=== PATIENT | female | born 1935 | race Caucasian/White ===

== ENCOUNTER 2018-09-20 22:13 | Observation (INO) | payer OTHER ==
[2018-09-20] MEDS ORDERED: NA CHLORIDE 0.9% 500 ML ONE (22:33)
[2018-09-20 23:23] LABS: Absolute Monocytes 0.6 K/uL (0.1-1.3); Absolute Neutrophil 11.8 K/uL (1.8-8.0); Basophils % 0.9 % (0-1.3); Eosinophils % 0.5 % (0-4.4); Hematocrit 46.1 % (36.0-45.0); Lymphocytes % 7.5 % (15.3-44.8); MCH 28.2 pg (27.0-35.0); MCV 84.9 fL (80-100); MPV 10.4 fL (7.6-11.3); Monocytes % 4.7 % (3.3-12.3); RBC Red Blood Cell Count 5.43 M/uL (3.86-4.86)
[2018-09-20 23:53] LABS: Albumin 3.3 g/dL (3.4-5.0); Bilirubin Direct 0.2 mg/dL (0-0.2); Bilirubin Total 0.9 mg/dL (0.2-1.0); Potassium 3.3 mmol/L (3.5-5.1); Protein, Total 7.5 g/dL (6.4-8.2)
[2018-09-21 01:55] LABS: Blood Morphology Comment NOT SEEN (NOT SEEN); Platelet Estimate ADEQ
--- NOTE | 2018-09-21 02:28 | ER ---
Nurse's Notes [facility] Name: Debra Sarkar Age: 82 yrs Sex: Female : 1935 Arrival Date: 09/20/2018 Time: 22:19 Bed 19 Private MD: Diagnosis: Diarrhea, unspecified;Weakness;Hypokalemia Presentation: 09/20 22:23 Presenting complaint: EMS states: Pt was complaining of Nausea and vomiting and having jb4 diarrhea. She had one episode of diarrhea on scene. She complained of hip pain that was a 6/10 when ambulating to the restroom but has no pain at rest. Transition of care: patient was not received from another setting of care. Onset of symptoms was September 20, 2018. Risk Assessment: Do you want to hurt yourself or someone else? Patient reports no desire to harm self or others. Initial Sepsis Screen: Does the patient meet any 2 criteria? HR > 90 bpm. Yes Does the patient have a suspected source of infection? No. Patient's initial sepsis screen is negative. Care prior to arrival: Medication(s) given: Normal saline infusion, 500 mL, zofran 4 mg, Glucose check: 158. 22:23 Method Of Arrival: EMS: [facility] jb4 22:23 Acuity: LEX 3 jb4 Historical: - Allergies: 22:31 Levaquin; jb4 22:31 Lisinopril; jb4 22:31 metformin; jb4 - Home Meds: 22:31 amlodipine 10 mg tab 1 tab once daily [Active]; clonidine HCl 0.3 mg Oral tab 1 tab jb4 every 8 hours [Active]; furosemide 40 mg Oral tab 1 tab once daily [Active]; hydralazine 50 mg Oral tab 1 tab 3 times daily [Active]; isosorbide mononitrate 30 mg Oral Tb24 1 tab once daily [Active]; Lantus Sub-Q 45 units daily [Active]; levothyroxine 100 mcg tab 1 tab once daily [Active]; Novolog sliding scale Sub-Q [Active]; propafenone 225 mg Oral Tb24 1 cap 8 hrs [Active]; spironolactone 25 mg Oral tab 1 tab once daily [Active]; Xarelto 20 mg Oral tab 1 tab once daily [Active]; - PMHx: 22:31 Atrial Fib; Diabetes - IDDM; Hypertension; jb4 - PSHx: 22:31 Cholecystectomy; Hysterectomy; partial thyroidectomy; jb4 - Immunization history:: Adult Immunizations up to date. - Social history:: Smoking status: Patient/guardian denies using tobacco. - Ebola Screening: : No symptoms or risks identified at this time. - Family history:: not pertinent. - Hospitalizations: : No recent hospitalization is reported. Screenin:44 Abuse screen: Denies threats or abuse. Denies injuries from another. Nutritional lp1 screening: No deficits noted. Tuberculosis screening: No symptoms or risk factors identified. Fall Risk Total Kim Fall Scale indicates High Risk Score (45 or more points). Fall prevention measures have been instituted. Side Rails Up X 2 As available patient and family educated on Fall Prevention Program and Strategies. Assessment: 22:43 General: Appears uncomfortable, Behavior is appropriate for age. Pain: Complains of lp1 pain in abdomen Pain currently is 4 out of 10 on a pain scale. Quality of pain is described as aching. Neuro: Level of Consciousness is awake, alert, obeys commands, Oriented to person, place, situation. Cardiovascular: Patient's skin is warm and dry. Rhythm is sinus rhythm with 1st degree heart block. Respiratory: Respiratory effort is even, unlabored, Breath sounds are clear bilaterally. GI: Abdomen is round Bowel sounds present X 4 quads. Abdomen is tender to palpation X 4 quads. Reports diarrhea. : No signs and/or symptoms were reported regarding the genitourinary system. EENT: No signs and/or symptoms were reported regarding the EENT system. Derm: Skin is fragile, is thin, Skin is dry, Skin is normal. Musculoskeletal: Circulation, motion, and sensation intact. 23:45 Reassessment: Patient appears in no apparent distress at this time. Patient and/or lp1 family updated on plan of care and expected duration. Pain level reassessed. Patient resting, eyes closed, respirations unlabored. 09/21 00:50 Reassessment: Notified by CT of IV to R AC not functional for IV contrast; nurse to CT lp1 at this time. 02:00 Reassessment: Patient appears in no apparent distress at this time. Patient and/or lp1 family updated on plan of care and expected duration. Pain level reassessed. Patient resting, eyes closed, respirations unlabored. 03:00 Reassessment: Patient appears in no apparent distress at this time. Patient and/or jb4 family updated on plan of care and expected duration. Pain level reassessed. Patient is alert, oriented x 3, equal unlabored respirations, skin warm/dry/pink. 04:00 Reassessment: Patient appears in no apparent distress at this time. Patient and/or jb4 family updated on plan of care and expected duration. Pain level reassessed. Patient is alert, oriented x 3, equal unlabored respirations, skin warm/dry/pink. Changed and cleaned pt. Vital Signs: 09/20 22:31 BP 184 / 69; Pulse 96; Resp 18; Temp 98.3(O); Pulse Ox 96% on R/A; Weight 93.89 kg (R); jb4 Height 5 ft. 2 in. (157.48 cm) (R); Pain 0/10; 23:15 BP 192 / 74; Pulse 98; Resp 17; Pulse Ox 96% on R/A; lp1 09/21 00:00 BP 182 / 72; Pulse 93; Resp 17; Pulse Ox 95% on R/A; lp1 02:00 BP 182 / 72; Pulse 99; Resp 18; Pulse Ox 96% on R/A; lp1 03:00 BP 193 / 72; Pulse 98; Resp 20; Pulse Ox 95% on R/A; jb4 04:00 BP 185 / 68; Pulse 101; Resp 20; Temp 98.3(O); Pulse Ox 96% on R/A; jb4 09/20 22:31 Body Mass Index 37.86 (93.89 kg, 157.48 cm) 4 ED Course: 09/20 22:19 Patient arrived in ED. rn 22:21 Rahat Ratliff MD is Attending Physician. rn 22:22 Sherrill Biggs, MENG is Primary Nurse. lp1 22:26 Triage completed. jb4 22:31 Arm band placed on right wrist. jb4 22:42 Maintain EMS IV. Dressing intact. Good blood return noted. Site clean \T\ dry. Gauge \T\ lp 1 site: 22g to R AC. 22:45 Patient has correct armband on for positive identification. Call light in reach. Side lp1 rails up X2. electrician chief on. Pulse ox on. NIBP on. 12/03 00:[address] via stretcher. kw1 00:55 Inserted saline lock: 22 gauge in left antecubital area, using aseptic technique. lp1 01:10 Patient moved back from CT. kw1 02:17 No provider procedures requiring assistance completed. lp1 02:26 Ugo Mercado MD is Hospitalizing Provider. rn 02:50 Patient admitted, IV remains in place. lp1 03:00 Report given to MENG Scruggs. lp1 Administered Medications: 09/20 22:43 Drug: NS 0.9% 500 ml Route: IV; Rate: bolus; Site: right antecubital; lp1 23:30 Follow up: IV Status: Completed infusion; IV Intake: 500ml lp1 09/21 02:56 Drug: NS 0.9% 1000 ml Route: IV; Rate: 125 ml/hr; Site: left antecubital; lp1 04:20 Follow up: Response: No adverse reaction; IV Status: Infusion continued upon admission jb4 02:56 Drug: Potassium Chloride 40 mEq Route: PO; lp1 03:40 Follow up: Response: No adverse reaction jb4 Intake: 09/20 23:30 IV: 500ml; Total: 500ml. lp1 Outcome: 09/21 02:27 Decision to Hospitalize by Provider. rn 02:50 Condition: stable lp1 02:50 Instructed on the need for admit. 04:34 Admitted to Tele accompanied by tech, via stretcher, room 421, with chart, Report jb4 called to MENG Ashby 04:35 Patient left the ED. jb4 Signatures: Rahat Ratliff MD MD rn Pena, Laura, RN RN lp1 Forest Luong RN RN jb4 [facility]
--- NOTE | 2018-09-21 02:28 | EDPHYS ---
Physician Documentation [facility] Name: Debra Sarkar Age: 82 yrs Sex: Female : 1935 Arrival Date: 09/20/2018 Time: 22:19 Bed 19 Private MD: ED Physician Rahat Ratliff HPI: 09/20 23:58 This 82 yrs old Female presents to ER via EMS with complaints of rn nausea/vomiting/diarrhea. 23:58 The patient presents to the emergency department with nausea, vomiting, diarrhea. rn Onset: The symptoms/episode began/occurred 2 day(s) ago. Possible causes: unknown. The symptoms are aggravated by nothing. The symptoms are alleviated by nothing. Severity of symptoms: At their worst the symptoms were moderate in the emergency department the symptoms are unchanged. The patient has not experienced similar symptoms in the past. Reports a couple of days of nausea/vomiting/diarrhea, + generalized weakness, no fever, + chills, no blood in emesis or diarrhea. + intermittent cramping of abdomen. . Historical: - Allergies: 22:31 Levaquin; jb4 22:31 Lisinopril; jb4 22:31 metformin; jb4 - Home Meds: 22:31 amlodipine 10 mg tab 1 tab once daily [Active]; clonidine HCl 0.3 mg Oral tab 1 tab jb4 every 8 hours [Active]; furosemide 40 mg Oral tab 1 tab once daily [Active]; hydralazine 50 mg Oral tab 1 tab 3 times daily [Active]; isosorbide mononitrate 30 mg Oral Tb24 1 tab once daily [Active]; Lantus Sub-Q 45 units daily [Active]; levothyroxine 100 mcg tab 1 tab once daily [Active]; Novolog sliding scale Sub-Q [Active]; propafenone 225 mg Oral Tb24 1 cap 8 hrs [Active]; spironolactone 25 mg Oral tab 1 tab once daily [Active]; Xarelto 20 mg Oral tab 1 tab once daily [Active]; - PMHx: 22:31 Atrial Fib; Diabetes - IDDM; Hypertension; jb4 - PSHx: 22:31 Cholecystectomy; Hysterectomy; partial thyroidectomy; jb4 - Immunization history:: Adult Immunizations up to date. - Social history:: Smoking status: Patient/guardian denies using tobacco. - Ebola Screening: : No symptoms or risks identified at this time. - Family history:: not pertinent. - Hospitalizations: : No recent hospitalization is reported. ROS: 23:58 Constitutional: + chills Eyes: Negative for injury, pain, redness, and discharge, rn Neck: Negative for injury, pain, and swelling, Cardiovascular: Negative for chest pain, palpitations, and edema, Respiratory: Negative for shortness of breath, cough, wheezing, and pleuritic chest pain, Abdomen/GI: + nausea/vomiting/diarrhea, + intermittent abd pain Back: Negative for injury and pain, MS/Extremity: Negative for injury and deformity, Skin: Negative for injury, rash, and discoloration, Neuro: + generalized weakness Exam: 23:58 Constitutional: This is a well developed, well nourished patient who is awake, alert, rn and in no acute distress. Head/Face: Normocephalic, atraumatic. ENT: dry MM Cardiovascular: Regular rate and rhythm with a normal S1 and S2. No gallops, murmurs, or rubs. Normal PMI, no JVD. No pulse deficits. Respiratory: Lungs have equal breath sounds bilaterally, clear to auscultation and percussion. No rales, rhonchi or wheezes noted. No increased work of breathing, no retractions or nasal flaring. Abdomen/GI: soft, non-tender, non-distended Skin: Warm, dry, no evidence of cellulitis. MS/ Extremity: Pulses equal, no cyanosis. Neurovascular intact. Full, normal range of motion. Equal circumference. Neuro: Awake and alert, GCS 15, oriented to person, place, time, and situation. Cranial nerves II-XII grossly intact. Motor strength 5/5 in all extremities. Sensory grossly intact. Vital Signs: 22:31 BP 184 / 69; Pulse 96; Resp 18; Temp 98.3(O); Pulse Ox 96% on R/A; Weight 93.89 kg (R); jb4 Height 5 ft. 2 in. (157.48 cm) (R); Pain 0/10; 23:15 BP 192 / 74; Pulse 98; Resp 17; Pulse Ox 96% on R/A; lp1 1203 00:00 BP 182 / 72; Pulse 93; Resp 17; Pulse Ox 95% on R/A; lp1 02:00 BP 182 / 72; Pulse 99; Resp 18; Pulse Ox 96% on R/A; lp1 03:00 BP 193 / 72; Pulse 98; Resp 20; Pulse Ox 95% on R/A; jb4 04:00 BP 185 / 68; Pulse 101; Resp 20; Temp 98.3(O); Pulse Ox 96% on R/A; jb4 09/20 22:31 Body Mass Index 37.86 (93.89 kg, 157.48 cm) jb4 MDM: 09/20 22:19 Patient medically screened. rn 09/21 02:26 Differential diagnosis: Nonspecific abd pain, diverticulitis, viral gastroenteritis, rn gastroenteritis. Data reviewed: vital signs, nurses notes, lab test result(s), radiologic studies, CT scan, and as a result, I will admit patient. Counseling: I had a detailed discussion with the patient and/or guardian regarding: the historical points, exam findings, and any diagnostic results supporting the discharge/admit diagnosis, lab results, radiology results, the need for further work-up and treatment in the hospital. Admission orders: after a detailed discussion of the patient's condition and case, the admit orders are written by me. 09/20 22:20 Order name: Basic Metabolic Panel rn 09/20 22:20 Order name: CBC with Diff rn 09/20 22:20 Order name: Hepatic Function rn 09/20 22:20 Order name: Lipase rn 09/20 23:39 Order name: CBC with Automated Diff; Complete Time: 02:00 EDMS 09/20 23:53 Order name: Basic Metabolic Panel; Complete Time: 02:00 EDMS 09/20 22:20 Order name: CT Abd/Pelvis - W/Contrast rn 09/20 22:20 Order name: EKG; Complete Time: 22:22 rn 09/20 23:53 Order name: Liver (Hepatic) Function; Complete Time: 02:00 EDMS 09/20 23:53 Order name: Lipase; Complete Time: 02:00 EDMS 09/21 01:56 Order name: Manual Differential; Complete Time: 02:00 EDMS 09/20 22:20 Order name: IV Saline Lock; Complete Time: 22:49 rn 09/20 22:20 Order name: Labs collected and sent; Complete Time: 22:49 rn 09/20 22:20 Order name: EKG - Nurse/Tech; Complete Time: 22:49 rn Administered Medications: 09/20 22:43 Drug: NS 0.9% 500 ml Route: IV; Rate: bolus; Site: right antecubital; lp1 23:30 Follow up: IV Status: Completed infusion; IV Intake: 500ml lp1 12 02:56 Drug: NS 0.9% 1000 ml Route: IV; Rate: 125 ml/hr; Site: left antecubital; lp1 04:20 Follow up: Response: No adverse reaction; IV Status: Infusion continued upon admission jb4 02:56 Drug: Potassium Chloride 40 mEq Route: PO; lp1 03:40 Follow up: Response: No adverse reaction jb4 Disposition: 09/21/18 02:27 Hospitalization ordered by Ugo Mercado for Observation. Preliminary diagnosis are Diarrhea, unspecified, Weakness, Hypokalemia. - Bed requested for Telemetry/MedSurg (observation). - Status is Observation. jb4 - Condition is Stable. - Problem is new. - Symptoms have improved. UTI on Admission? No Signatures: Dispatcher [employer] EDMS Lorraine Moraes RN RN Rahat Armenta MD MD rn Pena, Laura, RN RN lp1 Forest Luong RN RN jb4 Corrections: (The following items were deleted from the chart) 04:03 02:27 Hospitalization Ordered by A Rogelio NAVARRETE for Observation. Preliminary diagnosis is kl Diarrhea, unspecified; Weakness; Hypokalemia. Bed requested for Telemetry/MedSurg (observation). Status is Observation. Condition is Stable. Problem is new. Symptoms have improved. UTI on Admission? No. rn 04:35 04:03 09/21/2018 02:27 Hospitalization Ordered by A Rogelio NAVARRETE for Observation. jb4 Preliminary diagnosis is Diarrhea, unspecified; Weakness; Hypokalemia. Bed requested for Telemetry/MedSurg (observation). Status is Observation. Condition is Stable. Problem is new. Symptoms have improved. UTI on Admission? No. kl
[2018-09-21] MEDS ORDERED: NA CHLORIDE 0.9% 1,000 ML ONE (02:56)
[2018-09-21] MEDS ORDERED: POTASSIUM CL SA 10 MEQ TAB PO ONE (02:58)
[2018-09-21] MEDS ORDERED: ONDANSETRON 4 MG/2 ML VIAL IV PRN (05:00)
[2018-09-21] MEDS: NA CHLORIDE 0.9% 1,000 ML IV SCH ×3 (05:00→15:00)
[2018-09-21] MEDS ORDERED: ACETAMINOPHEN 500 MG TAB PO PRN (05:00)
[2018-09-21 05:31] VITALS: BMI 37.8
[2018-09-21 06:41] LABS: Absolute Monocytes 0.5 K/uL (0.1-1.3); Absolute Neutrophil 11.9 K/uL (1.8-8.0); Basophils % 0.7 % (0-1.3); Eosinophils % 0.2 % (0-4.4); Hematocrit 44.4 % (36.0-45.0); Lymphocytes % 7.1 % (15.3-44.8); MCH 27.8 pg (27.0-35.0); MCV 83.9 fL (80-100); MPV 10.5 fL (7.6-11.3); RBC Red Blood Cell Count 5.29 M/uL (3.86-4.86)
--- NOTE | 2018-09-21 07:39 | EKG ---
Test Date: 2018-09-20 Test Time: 22:35:10 Hand Alterations Tailor: YAMIL MEASUREMENT RESULTS: Intervals: Rate: 91 NM: 226 QRSD: 138 QT: 402 QTc: 494 [place]: P: 85 NM: 226 QRS: -48 T: 95 INTERPRETIVE STATEMENTS: Sinus rhythm with 1st degree AV block Left axis deviation Nonspecific intraventricular block Cannot rule out Septal infarct, age undetermined T wave abnormality, consider lateral ischemia Abnormal ECG Compared to ECG 10/14/2017 07:58:17 T-wave abnormality now present Possible ischemia now present Myocardial infarct finding still present Electronically Signed On 09-21-18 07:38:24 SALES REPRESENTATIVE DOOR TO DOOR by Walter Osei
--- NOTE | 2018-09-21 08:46 | RAD REPORT ---
EXAM DESCRIPTION: CT - Abdomen Pelvis W Contrast - 09/21/2018 2:14 am CLINICAL HISTORY: Abdominal pain. Vomiting and diarrhea COMPARISON: None. TECHNIQUE: Computed axial tomography of the abdomen and pelvis was obtained. 100 cc Isovue-300 is ad ministered intravenously. Oral contrast was given. All CT scans are performed using dose optimization technique as appropriate and may include automated exposure control or mA/KV adjustment according to patient size. FINDINGS: The gallbladder has been removed The liver, spleen, pancreas, adrenals and kidneys demonstrate no significant abnormality. Small renal cysts. Atherosclerosis involves the arteries. Tiny umbilical hernia. Uterus is been removed. The appendix is normal caliber. There is no evidence of diverticulitis
[2018-09-21] MEDS: CEFTRIAXONE/SWI 1gm 1 GM/10 ML SYR IV SCH ×2 (09:40→21:21)
[2018-09-21] MEDS: METRONIDAZOLE 500mg IVPB 500 MG/100 ML BAG IV SCH ×2 (09:40→17:09)
[2018-09-21] MEDS: PROPAFENONE HCL 150 MG TAB PO SCH ×2 (09:40→17:08)
[2018-09-21] MEDS: CLONIDINE HCL 0.3 MG TAB PO SCH ×2 (09:41→17:09)
[2018-09-21] MEDS: ISOSORBIDE MONO SR 30 MG TAB PO SCH (09:41)
[2018-09-21] MEDS: HYDRALAZINE HCL 25 MG TABLET PO SCH ×3 (09:41→21:21)
[2018-09-21] MEDS: LEVOTHYROXINE SOD 0.112 MG TAB PO SCH (09:41)
[2018-09-21] MEDS: AMLODIPINE 10 MG TAB PO SCH (09:44)
[2018-09-21 11:25] LABS: Urine Appearance CLOUDY; Urine Bilirubin NEGATIVE (NEG); Urine Blood TRACE (NEG); Urine Color YELLOW; Urine Glucose NEGATIVE (NEG); Urine Protein TRACE (NEG); Urine Specific Gravity >=1.030 (1.005-1.030); Urine Urobilinogen 0.2 mg/dL (0.2-1.0); Urine pH 5.5 (5.0-7.0)
[2018-09-21 11:27] LABS: Urine Microscopic Reflex ORDER UMIC
[2018-09-21 11:39] LABS: Urine Bacteria 20-50 /HPF (<20); Urine Culture Reflex Order NOT NEEDED; Urine RBC <5 /HPF (NONE SEEN)
--- NOTE | 2018-09-21 15:11 | EKG ---
Test Date: 2018-09-21 Test Time: 12:09:50 Automotive Internet Sales Manager: PAYTON MEASUREMENT RESULTS: Intervals: Rate: 91 AK: 198 QRSD: 100 QT: 384 QTc: 472 [place]: P: 86 AK: 198 QRS: -29 T: 112 INTERPRETIVE STATEMENTS: Normal sinus rhythm Anteroseptal infarct, age undetermined ST & T wave abnormality, consider lateral ischemia Abnormal ECG Compared to ECG 09/20/2018 22:35:10 First degree AV block no longer present Left-axis deviation no longer present Myocardial infarct finding still present Electronically Signed On 09-21-18 15:10:52 [employer] FIGHTER PILOT by Walter Osei
[2018-09-21] MEDS ORDERED: RIVAROXABAN 20 MG TABLET PO SCH (21:00)
[2018-09-21 22:05] VITALS: O2SAT 96
[2018-09-22] MEDS: CLONIDINE HCL 0.3 MG TAB PO SCH ×3 (00:55→17:00)
[2018-09-22] MEDS: PROPAFENONE HCL 150 MG TAB PO SCH ×3 (00:55→17:00)
[2018-09-22] MEDS: METRONIDAZOLE 500mg IVPB 500 MG/100 ML BAG IV SCH ×3 (00:56→17:00)
[2018-09-22] MEDS: NA CHLORIDE 0.9% 1,000 ML IV SCH ×3 (01:00→11:00)
[2018-09-22] MEDS: LEVOTHYROXINE SOD 0.112 MG TAB PO SCH (06:04)
--- NOTE | 2018-09-22 06:14 | HP ---
Date of Admission: 09/21/2018 Chief Complaint: Abdominal pain, diarrhea, nausea. History Of Present Illness: This 82-year-old female patient came into emergency room with complaints of generalized abdominal pain, nausea, diarrhea, and some chills. Denies any blood in stool. After she came into the emergency room, she was admitted to the hospital under my service. When I saw her this morning, she had no other new complaints except as mentioned above. Medications: List reviewed. Review of Systems: GI: As mentioned above. All other systems reviewed and negative. Allergies: TO LISINOPRIL, LEVAQUIN, METFORMIN. Social History: Negative for smoking and alcohol use. Family History: Significant for coronary artery disease and diabetes. Past Surgical History: Cholecystectomy, hysterectomy, partial thyroidectomy in 2008. Past Medical History: Significant for hypertension, hyperlipidemia, type 2 diabetes mellitus, ulcera tive colitis, leg edema, paroxysmal atrial fibrillation, hypothyroidism, osteoarthritis at multiple s ites, osteopenia. Physical Examination: Vital Signs: When I first saw her this morning, temperature 99.4, pulse 86, respiratory rate 20, blo od pressure 182/70. General: Awake, alert, oriented, not in distress. HEENT: Head atraumatic, normocephalic. Conjunctivae nonerythematous. Sclerae white. Mouth, no thr ush or edema noted. Ears/Nose, no mass, lesion, discharge noted. Neck: Supple. No JVD, lymph nodes, bruit, thyromegaly noted. Lungs: Bilateral good equal air entry. Clear to auscultation. No rhonchi. No rales. Heart: Normal heart sounds, no murmur or gallop. Abdomen: Vague lower abdominal tenderness. No rebound tenderness. Bowel sounds normoactive. No di stention. No hepatosplenomegaly. No bruit. Extremities: No leg edema. No calf tenderness. Skin: No rash, ulcer, cellulitis. Lymphatics: No lymph node enlargement in neck, supraclavicular, infraclavicular region. Neuro: No focal neurological deficit. Chest: Unremarkable. External Genitalia: Deferred. Rectal: Deferred. Laboratory Data: White count yesterday 13.7, hemoglobin 15.3, platelets 291. This morning, white co unt 13.5, hemoglobin 14.7, platelets 315. Yesterday, sodium 139, potassium 3.3, chloride 106, bicarb 20, BUN 14, creatinine 1.1, glucose 180. Liver function tests unremarkable. Lipase 82. This morni ng, sodium 140, potassium 4, chloride 108, bicarb 18, BUN 13, creatinine 1, glucose 192. Urinalysis; nitrite negative, esterase 2+, wbc 10-20, bacteria 20-50. CAT scan of the abdomen and pelvis done i n the emergency room shows no evidence of diverticulitis. Tiny umbilical hernia. Appendix normal ca liber. Liver, spleen, pancreas, adrenal, kidneys demonstrate no significant abnormalities. Presence of small renal cyst. Stool for C. diff was done today that was negative. Stool culture pending. Impression: 1.Acute gastroenteritis. 2.Urinary tract infection. 3.Hypokalemia. 4.Hypertension. 5.Hyperlipidemia. 6.Type 2 diabetes mellitus. 7.Osteoarthritis, multiple sites. 8.Paroxysmal atrial fibrillation. Plan: Admit patient to hospital for further evaluation and management of this problem. Patient is a ppropriate for inpatient and is expected to spend 2 midnights in the hospital. We will go ahead and continue home medications per order. Give IV fluid, IV antibiotics, and follow up on stool culture results. I will see her tomorrow for followup. Details and plan of treatment di scussed with the patient. BOLIVAR/FAUSTINA Voice ID: [id number]
[2018-09-22 07:26] LABS: Potassium 4.1 mmol/L (3.5-5.1)
[2018-09-22 07:28] LABS: Absolute Lymphocytes (CBC) 1.5 K/uL (0.7-4.9); Absolute Monocytes 0.7 K/uL (0.1-1.3); Absolute Neutrophil 7.2 K/uL (1.8-8.0); Basophils % 0.2 % (0-1.3); Eosinophils % 1.8 % (0-4.4); Hematocrit 36.8 % (36.0-45.0); Lymphocytes % 15.8 % (15.3-44.8); MCV 83.9 fL (80-100); MPV 9.9 fL (7.6-11.3); Monocytes % 7.6 % (3.3-12.3); RBC Red Blood Cell Count 4.39 M/uL (3.86-4.86)
[2018-09-22] MEDS: CEFTRIAXONE/SWI 1gm 1 GM/10 ML SYR IV SCH (09:00)
[2018-09-22] MEDS: HYDRALAZINE HCL 25 MG TABLET PO SCH ×2 (09:40→13:32)
[2018-09-22] MEDS: ISOSORBIDE MONO SR 30 MG TAB PO SCH (09:40)
[2018-09-22] MEDS: AMLODIPINE 10 MG TAB PO SCH (09:40)
[2018-09-22 12:41] VITALS: BP 132/62; TEMP 98.6
--- NOTE | 2018-09-23 05:40 | DS ---
Date of Discharge: 09/22/2018 Disposition: Discharged to go home. Physical Examination: HEENT: Unremarkable. Lungs: Clear to auscultation. Heart: Sounds normal. Abdomen: Soft. Bowel sounds normal. No guarding, rigidity, tenderness, or distention. Extremities: No leg edema. Hospital Course: An 82-year-old female patient was admitted to hospital with abdominal pain, diarrhea, nausea. Please see dictated H and P for more information. After the patient presented to emergency room, she was evaluated, admitted to the hospital with acute gastroenteritis. She was started on empiric antibiotic, ceftriaxone and metronidazole. IV fluid was given. Overall , her condition improved. She did not have any more diarrhea after I saw her yesterday morning. This morning, she was feeling fine, tolerating diet very well. She felt like she was back to her normal self. After I saw her this morning, decision was made to discharge her to go home and she had 1 episode of diarrhea after I saw her, so she did not feel comfortable going home right away this morning, and it was advised for the patient to stay in the hospital until later today, and in the evening time patient was discharged to go home in stable condition with above-mentioned medication and instructions. The patient was advised to follow up with her bloom conveyor operator, Dr. Barajas some time this month. Her white count was slightly elevated when she came in and that has come down to normal range on the last blood work which was from this morning. CAT scan of abdomen done in the emergency room was unremarkable for any acute findings. Final Diagnosis: 1. Acute gastroenteritis. 2. Urinary tract infection. 3. Hypokalemia. 4. Hypertension. 5. Hyperlipidemia. 6. Type 2 diabetes mellitus. 7. Osteoarthritis, multiple sites. 8. Paroxysmal atrial fibrillation. BOLIVAR/MODL Voice ID: [id number] Report ID: [id number] RANDA
== END 2018-09-22 18:06 | disposition home or self-care (01) ==
LOC: ER 22:13 → ERHOLD 09-21 02:29 → INTOOBSV 09-21 02:29 → OBSVTOIN 09-21 02:29 → 4TH 09-21 04:26
PROVIDERS: ADMIT Internal Medicine; ATTEND Internal Medicine
DX: K52.9 Noninfective gastroenteritis and colitis, unspecified (principal); N39.0 Urinary tract infection, site not specified; E87.6 Hypokalemia; I10 Essential (primary) hypertension; E78.5 Hyperlipidemia, unspecified; E11.9 Type 2 diabetes mellitus without complications; M19.90 Unspecified osteoarthritis, unspecified site; I48.0 Paroxysmal atrial fibrillation; E03.9 Hypothyroidism, unspecified
CPT/HCPCS: 36415 ×2; 74177; 80048 ×3; 80076; 83690; 85025 ×3; 87177; 87209; 87493; 93005 ×2; 96360; 96361; 99285; G0378 ×2; J0696 ×2; J2405; J7030 ×3; Q9967; 81003; 81015

== ENCOUNTER 2019-06-18 04:43 | Emergency (ER) | payer OTHER ==
--- NOTE | 2019-06-18 06:02 | ER ---
Nurse's Notes [facility] Name: Debra Sarkar Age: 83 yrs Sex: Female : 1935 Arrival Date: 06/18/2019 Time: 04:46 Bed 19 Private MD: Diagnosis: Fracture of lateral end of clavicle Presentation: 06/18 04:35 Presenting complaint: EMS states: Pt was on the ground for approximately 20 minutes. jb4 Denies LOC, hit her head on the carpet, complaining of left shoulder pain. Landed on her left shoulder. 04:35 Care prior to arrival: None. Mechanism of Injury: Fall from standing position. Trauma jb4 event details: Injury occurred in the [facility]. 04:35 Method Of Arrival: EMS: [facility] jb4 04:35 Acuity: LEX 3 jb4 04:35 Transition of care: patient was not received from another setting of care. Onset of jb4 symptoms was June 18, 2019. Risk Assessment: Do you want to hurt yourself or someone else? Patient reports no desire to harm self or others. Initial Sepsis Screen: Does the patient meet any 2 criteria? No. Patient's initial sepsis screen is negative. Does the patient have a suspected source of infection? No. Patient's initial sepsis screen is negative. Trauma Activation: Alert Physician: ED Physician; Name: JASON; Notified At: 04:36; Arrived At: 04:36 Physician: General Surgeon; Name: ; Notified At: 04:36; Arrived At: Physician: Radiology; Name: JENIFER BURGESS; Notified At: 04:36; Arrived At: Physician: Respiratory; Name: ; Notified At: 04:36; Arrived At: Physician: Lab; Name: ; Notified At: 04:36; Arrived At: Historical: - Allergies: 04:35 Levaquin; jb4 04:35 Lisinopril; jb4 04:35 metformin; jb4 - Home Meds: 04:35 amlodipine 10 mg tab 1 tab once daily [Active]; clonidine HCl 0.3 mg Oral tab 1 tab jb4 every 8 hours [Active]; furosemide 40 mg Oral tab 1 tab once daily [Active]; hydralazine 50 mg Oral tab 1 tab 3 times daily [Active]; isosorbide mononitrate 30 mg Oral Tb24 1 tab once daily [Active]; Lantus Sub-Q 45 units daily [Active]; levothyroxine 100 mcg tab 1 tab once daily [Active]; Novolog Sliding scale Sub-Q [Active]; propafenone 225 mg Oral Tb24 1 cap 8 hrs [Active]; spironolactone 25 mg Oral tab 1 tab once daily [Active]; Xarelto 20 mg Oral tab 1 tab once daily [Active]; Miralax Oral [Active]; - PMHx: 04:35 Atrial Fib; Diabetes - IDDM; Hypertension; lymphedema; jb4 - PSHx: 04:35 Cholecystectomy; Hysterectomy; partial thyroidectomy; jb4 - Immunization history: Last tetanus immunization: unknown. - Social history:: Smoking status: Patient/guardian denies using tobacco. - Ebola Screening: : No symptoms or risks identified at this time. Screenin:35 Abuse screen: Denies threats or abuse. Nutritional screening: No deficits noted. jb4 Tuberculosis screening: No symptoms or risk factors identified. Fall risk At risk due to age, prior history of falls, Intervention for positive screen: side rails up. 04:35 Fall Risk Fall in past 12 months (25 points). Total Kim Fall Scale indicates Low Risk jb4 Score (25-44 pts). Fall prevention measures have been instituted. Side Rails Up X 2 Placed close to Nursing Station Frequent Obs/Assesments occuring Family Present and informed to notify staff if they need to leave bedside As available Patient and Family Educated on Fall Prevention Program and strategies. Primary Survey: 04:35 NO uncontrolled hemorrhage observed. A: The patient is alert. Airway: patent, No jb4 supplemental oxygen in use on arrival. Oral cavity: clear, gag reflex present, Trachea midline. Breathing/Chest: Respiratory pattern: regular, Respiratory effort: spontaneous, unlabored, Breath sounds: clear, Chest inspection: symmetrical rise and fall of the chest. Circulation: Skin color: pink, Skin temperature: warm. Disability Alert. Exposure/Environment: A warming method has been applied: A warm blanket has been provided to the patient. 05:00 Reassessment Airway Airway Patent Oxygen No O2 Breathing/Chest Respiratory pattern jb4 Regular Respiratory effort Spontaneous Unlabored Chest inspection Symmetrical Circulation Color [place] Temperature Warm Dry Disability Alert. Secondary Survey: 04:35 HEENT: No deficits noted. Gastrointestinal: No deficits noted. : No deficits noted. jb4 No signs and/or symptoms were reported regarding the genitourinary system. Musculoskeletal: No deficits noted. No signs and/or symptoms reported regarding the musculoskeletal system. Assessment: 04:35 General: Appears in no apparent distress. comfortable, Behavior is calm, cooperative, jb4 appropriate for age. Pain: Complains of pain in left arm Pain does not radiate. Pain currently is 0 out of 10 on a pain scale. at worst was 6 out of 10 on a pain scale. Quality of pain is described as throbbing, Pain began 1 hour ago. Is intermittent, Alleviated by rest, Aggravated by increased activity. Neuro: Level of Consciousness is awake, alert, obeys commands, Oriented to person, place, time, situation. Cardiovascular: Patient's skin is warm and dry. Respiratory: Airway is patent Trachea midline Respiratory effort is even, unlabored, Respiratory pattern is regular, symmetrical, Breath sounds are clear bilaterally. GI: No deficits noted. No signs and/or symptoms were reported involving the gastrointestinal system. : No deficits noted. No signs and/or symptoms were reported regarding the genitourinary system. EENT: No deficits noted. No signs and/or symptoms were reported regarding the EENT system. Derm: Skin is intact, Skin is pink, warm \T\ dry. Musculoskeletal: Circulation, motion, and sensation intact. Range of motion: limited in left shoulder. 05:00 Reassessment: Pt to CT. jb4 05:35 Reassessment: Patient appears in no apparent distress at this time. Patient and/or jb4 family updated on plan of care and expected duration. Pain level reassessed. Patient is alert, oriented x 3, equal unlabored respirations, skin warm/dry/pink. Pt's son called per patients request. 06:30 Reassessment: Patient appears in no apparent distress at this time. Patient and/or jb4 family updated on plan of care and expected duration. Pain level reassessed. Patient is alert, oriented x 3, equal unlabored respirations, skin warm/dry/pink. Pt and pt's family verbalized understanding of d/c and follow up instructions, pt assisted to vehicle via wheelchair with diagnostic technician. Vital Signs: 04:35 BP 144 / 109; Pulse 58; Resp 16; Temp 98.5(O); Pulse Ox 96% on R/A; Weight 81.65 kg jb4 (R); Height 5 ft. 2 in. (157.48 cm) (R); Pain 0/10; 05:35 BP 158 / 56; Pulse 58; Resp 16; Pulse Ox 94% on R/A; jb4 06:00 BP 160 / 66; Pulse 57; Resp 16; Pulse Ox 94% on R/A; jb4 04:35 Body Mass Index 32.92 (81.65 kg, 157.48 cm) jb4 [place] Coma Score: 04:35 Eye Response: spontaneous(4). Verbal Response: oriented(5). Motor Response: obeys jb4 commands(6). Total: 15. 05:35 Eye Response: spontaneous(4). Verbal Response: oriented(5). Motor Response: obeys jb4 commands(6). Total: 15. 06:00 Eye Response: spontaneous(4). Verbal Response: oriented(5). Motor Response: obeys jb4 commands(6). Total: 15. Trauma Score (Adult): 04:35 Eye Response: spontaneous(1); Verbal Response: oriented(1); Motor Response: obeys jb4 commands(2); Systolic BP: > 89 mm Hg(4); Respiratory Rate: 10 to 29 per min(4); [place] Score: 15; Trauma Score: 12 05:35 Eye Response: spontaneous(1); Verbal Response: oriented(1); Motor Response: obeys jb4 commands(2); Systolic BP: > 89 mm Hg(4); Respiratory Rate: 10 to 29 per min(4); [place] Score: 15; Trauma Score: 12 06:00 Eye Response: spontaneous(1); Verbal Response: oriented(1); Motor Response: obeys jb4 commands(2); Systolic BP: > 89 mm Hg(4); Respiratory Rate: 10 to 29 per min(4); [place] Score: 15; Trauma Score: 12 ED Course: 04:35 Patient has correct armband on for positive identification. Bed in low position. Call jb4 light in reach. Side rails up X2. Patient maintains SpO2 saturation greater than 95% on room air. 04:35 Arm band placed on right wrist. jb4 04:35 Patient maintains SpO2 saturation greater than 95% on room air. jb4 04:35 Thermoregulation: warm blanket given to patient. jb4 04:46 Patient arrived in ED. jb4 04:49 Reid Carlisle MD is Attending Physician. gs 04:51 Triage completed. jb4 05:10 Forest Luong RN is Primary Nurse. jb4 05:58 Myron Garza MD is Referral Physician. gs 06:51 No provider procedures requiring assistance completed. Patient did not have IV access jb4 during this emergency room visit. 10:05 CT Head C Spine In Process Unspecified. EDMS Administered Medications: No medications were administered Point of Care Testing: Blood Glucose: 04:58 Blood Glucose: 278 mg/dL; oe Ranges: Intake: 06:52 PO: 0ml; Total: 0ml. jb4 Output: 06:52 Urine: 0ml; Total: 0ml. jb4 Outcome: 05:59 Discharge ordered by . gs 06:30 Discharged to home via wheelchair, with family. jb4 06:30 Condition: stable 06:30 Discharge instructions given to patient, family, Instructed on discharge instructions, follow up and referral plans. Demonstrated understanding of instructions, follow-up care. 06:52 Patient's length of stay in the Emergency Department was greater than 2 hours. Pt jb4 discharged homePatient's length of stay extended due to 06:53 Patient left the ED. jb4 Signatures: Dispatcher [employer] EDMS Forest Luong RN RN jb4 Filipe Wilks oe Reid Carlisle MD MD
--- NOTE | 2019-06-18 06:03 | EDPHYS ---
Physician Documentation [facility] Name: Debra Sarkar Age: 83 yrs Sex: Female : 1935 Arrival Date: 06/18/2019 Time: 04:46 Bed 19 Private MD: ED Physician Reid Carlisle HPI: 06/18 05:05 This 83 yrs old Female presents to ER via EMS with complaints of FALL, LEFT gs SHOULDER INJURY. 05:05 Details of fall: The patient fell from an upright position, while walking. Onset: The gs symptoms/episode began/occurred acutely, just prior to arrival. Associated injuries: The patient sustained injury to the head, left shoulder. Severity of symptoms: At their worst the symptoms were moderate, in the emergency department the symptoms are unchanged. Historical: - Allergies: 04:35 Levaquin; jb4 04:35 Lisinopril; jb4 04:35 metformin; jb4 - Home Meds: 04:35 amlodipine 10 mg tab 1 tab once daily [Active]; clonidine HCl 0.3 mg Oral tab 1 tab jb4 every 8 hours [Active]; furosemide 40 mg Oral tab 1 tab once daily [Active]; hydralazine 50 mg Oral tab 1 tab 3 times daily [Active]; isosorbide mononitrate 30 mg Oral Tb24 1 tab once daily [Active]; Lantus Sub-Q 45 units daily [Active]; levothyroxine 100 mcg tab 1 tab once daily [Active]; Novolog Sliding scale Sub-Q [Active]; propafenone 225 mg Oral Tb24 1 cap 8 hrs [Active]; spironolactone 25 mg Oral tab 1 tab once daily [Active]; Xarelto 20 mg Oral tab 1 tab once daily [Active]; Miralax Oral [Active]; - PMHx: 04:35 Atrial Fib; Diabetes - IDDM; Hypertension; lymphedema; jb4 - PSHx: 04:35 Cholecystectomy; Hysterectomy; partial thyroidectomy; jb4 - Immunization history: Last tetanus immunization: unknown. - Social history:: Smoking status: Patient/guardian denies using tobacco. - Ebola Screening: : No symptoms or risks identified at this time. ROS: 05:05 All other systems are negative. gs Exam: 05:05 Head/Face: Normocephalic, atraumatic. Eyes: Pupils equal round and reactive to light, gs extra-ocular motions intact. Lids and lashes normal. Conjunctiva and sclera are non-icteric and not injected. Cornea within normal limits. Periorbital areas with no swelling, redness, or edema. ENT: Nares patent. No nasal discharge, no septal abnormalities noted. Tympanic membranes are normal and external auditory canals are clear. Oropharynx with no redness, swelling, or masses, exudates, or evidence of obstruction, uvula midline. Mucous membranes moist. Neck: Trachea midline, no thyromegaly or masses palpated, and no cervical lymphadenopathy. Supple, full range of motion without nuchal rigidity, or vertebral point tenderness. No Meningismus. Cardiovascular: Regular rate and rhythm with a normal S1 and S2. No gallops, murmurs, or rubs. Normal PMI, no JVD. No pulse deficits. Respiratory: Lungs have equal breath sounds bilaterally, clear to auscultation and percussion. No rales, rhonchi or wheezes noted. No increased work of breathing, no retractions or nasal flaring. Abdomen/GI: Soft, non-tender, with normal bowel sounds. No distension or tympany. No guarding or rebound. No evidence of tenderness throughout. Back: No spinal tenderness. No costovertebral tenderness. Full range of motion. Skin: Warm, dry with normal turgor. Normal color with no rashes, no lesions, and no evidence of cellulitis. MS/ Extremity: Pulses equal, no cyanosis. Neurovascular intact. Full, normal range of motion. Neuro: Awake and alert, GCS 15, oriented to person, place, time, and situation. Cranial nerves II-XII grossly intact. Motor strength 5/5 in all extremities. Sensory grossly intact. Cerebellar exam normal. Normal gait. 05:05 Constitutional: The patient appears alert, awake. 05:05 Chest/axilla: Palpation: tenderness, that is moderate, of the left clavicle. 05:05 Musculoskeletal/extremity: Joints: the left shoulder displays painful range of motion, tenderness. Vital Signs: 04:35 BP 144 / 109; Pulse 58; Resp 16; Temp 98.5(O); Pulse Ox 96% on R/A; Weight 81.65 kg jb4 (R); Height 5 ft. 2 in. (157.48 cm) (R); Pain 0/10; 05:35 BP 158 / 56; Pulse 58; Resp 16; Pulse Ox 94% on R/A; jb4 06:00 BP 160 / 66; Pulse 57; Resp 16; Pulse Ox 94% on R/A; jb4 04:35 Body Mass Index 32.92 (81.65 kg, 157.48 cm) jb4 [place] Coma Score: 04:35 Eye Response: spontaneous(4). Verbal Response: oriented(5). Motor Response: obeys jb4 commands(6). Total: 15. 05:35 Eye Response: spontaneous(4). Verbal Response: oriented(5). Motor Response: obeys jb4 commands(6). Total: 15. 06:00 Eye Response: spontaneous(4). Verbal Response: oriented(5). Motor Response: obeys jb4 commands(6). Total: 15. Trauma Score (Adult): 04:35 Eye Response: spontaneous(1); Verbal Response: oriented(1); Motor Response: obeys jb4 commands(2); Systolic BP: > 89 mm Hg(4); Respiratory Rate: 10 to 29 per min(4); [place] Score: 15; Trauma Score: 12 05:35 Eye Response: spontaneous(1); Verbal Response: oriented(1); Motor Response: obeys jb4 commands(2); Systolic BP: > 89 mm Hg(4); Respiratory Rate: 10 to 29 per min(4); [place] Score: 15; Trauma Score: 12 06:00 Eye Response: spontaneous(1); Verbal Response: oriented(1); Motor Response: obeys jb4 commands(2); Systolic BP: > 89 mm Hg(4); Respiratory Rate: 10 to 29 per min(4); [place] Score: 15; Trauma Score: 12 MDM: 04:49 Patient medically screened. 05:05 Differential diagnosis: closed head injury, fracture. Data reviewed: vital signs, nurses notes. Data reviewed: lab test result(s), radiologic studies. Counseling: I had a detailed discussion with the patient and/or guardian regarding: the historical points, exam findings, and any diagnostic results supporting the discharge/admit diagnosis, radiology results, the need for outpatient follow up, a orthopedic surgeon. Response to treatment: the patient's symptoms have markedly improved after treatment, and as a result, I will discharge patient. 06/18 05:01 Order name: Glucose, Ancillary Testing; Complete Time: 06:00 EDMS 06/18 04:49 Order name: CT Head C Spine 06/18 04:49 Order name: Shoulder Left (2 View) XRAY 06/18 06:00 Order name: Shoulder Immobilizer; Complete Time: 06:49 gs Administered Medications: No medications were administered Point of Care Testing: Blood Glucose: 04:58 Blood Glucose: 278 mg/dL; oe Ranges: Critical Glucose Levels:Adult <50 mg/dl or >400 mg/dl <40 mg/dl or >180 mg/dl Disposition: 06/18/19 05:59 Discharged to Home. Impression: Fracture of lateral end of clavicle. - Condition is Stable. - Discharge Instructions: Clavicle Fracture, [id number]. - Medication Reconciliation Form, Thank You Letter, Antibiotic Education, Prescription Opioid Use form. - Follow up: Myron Garza MD; When: 2 - 3 days; Reason: Re-evaluation by your physician. Signatures: Dispatcher [employer] Forest Dorsey RN RN jb4 Reid Carlisle MD MD Corrections: (The following items were deleted from the chart) 06:53 05:59 06/18/2019 05:59 Discharged to Home. Impression: Fracture of lateral end of jb4 clavicle. Condition is Stable. Forms are Medication Reconciliation Form, Thank You Letter, Antibiotic Education, Prescription Opioid Use. Follow up: Dr. Myron Garza; When: 2 - 3 days; Reason: Re-evaluation by your physician. gs
[2019-06-18 06:59] VITALS: O2SAT 94
[2019-06-18 07:00] VITALS: BP 160/66
--- NOTE | 2019-06-18 08:52 | RAD REPORT ---
EXAM DESCRIPTION: RAD - Shoulder Left 2 View - 06/18/2019 5:43 am CLINICAL HISTORY: PAIN Trauma, pain COMPARISON: No comparisons FINDINGS: Fracture is seen involving the distal left clavicle. No dislocation evident. The bones are osteopenic.
--- NOTE | 2019-06-18 10:18 | RAD REPORT ---
EXAM DESCRIPTION: CT Head Without Intravenous Contrast CT Cervical Spine Without Intravenous Contrast CLINICAL HISTORY: The patient is 83 years old and is Female; PAIN TECHNIQUE: Axial computed tomography images of the head/brain and cervical spine without intravenous contrast. Sagittal and coronal reformatted images were created and reviewed. This CT exam was pe rformed using one or more of the following dose reduction techniques: automated exposure control, a djustment of the mA and/or kV according to patient size, and/or use of iterative reconstruction techn ique. COMPARISON: No relevant prior studies available. FINDINGS: BRAIN: There is diffuse cerebral atrophy present, consistent with this patient's age. There is patchy hypoattenuation of the deep white matter which is non-specific, but most likely owing to chronic small vessel ischemic change in a patient of this age group. No intracranial hemorrhage , mass effect, or midline shift is seen. There are no extra-axial fluid collections. VENTRICLES: There is diffuse prominence of the ventricles, which is likely related to central at rophy. SKULL: No acute fracture. SINUSES: Unremarkable as visualized. No acute sinusitis. MASTOID AIR CELLS: Unremarkable as visualized. No mastoid effusion. VERTEBRAE: The vertebral body heights and alignment are maintained. No acute fracture. DISCS/SPINAL CANAL/NEURAL FORAMINA: Minimal intervertebral disc space narrowing with osteophyte formation is present specifically from C4 through C7. There is no significant canal stenosis or neura l foraminal narrowing. SOFT TISSUES: The soft tissues are normal. VASCULATURE: Atherosclerosis of intracranial vessels is present. IMPRESSION: 1. No acute intracranial findings. 2. No fracture or malalignment of the cervical spine. Electronically signed by: Nini Rodriguez MD 06/18/2019 5:46 AM CDT Due to temporary technical issues with the PACS/Fluency reporting system, reports are being signed by the in house radiologist as a courtesy to ensure prompt reporting. The interpreting radiologist is f ully responsible for the content of the report.
== END 2019-06-18 06:53 | disposition home or self-care (01) ==
LOC: ER 04:43
DX: S42.032A Displaced fracture of lateral end of left clavicle, initial encounter for closed fracture (principal); I10 Essential (primary) hypertension; E11.9 Type 2 diabetes mellitus without complications; I48.91 Unspecified atrial fibrillation; I89.0 Lymphedema, not elsewhere classified; W18.30XA Fall on same level, unspecified, initial encounter; Y93.9 Activity, unspecified; Y92.9 Unspecified place or not applicable; Z88.1 Allergy status to other antibiotic agents; Z88.8 Allergy status to other drugs, medicaments and biological substances
CPT/HCPCS: 70450; 72125; 82962; 99284

== ENCOUNTER 2019-11-17 14:50 | Observation (INO) | payer OTHER ==
--- OUTSIDE RECORDS SUMMARY | 2019-11-17 14:54 | XMS REPORT ---
:1935 [facility] Address [address] [place] [address] Dr. Cespedes[address] [place] [id number] Care Team Providers Name Role Phone Unavailable Unavailable Unavailable Problems This patient has no known problems. Allergies, Adverse Reactions, Alerts This patient has no known allergies or adverse reactions. Medications This patient has no known medications.
[2019-11-17] MEDS ORDERED: ONDANSETRON 4 MG/2 ML VIAL ONE (16:01)
[2019-11-17] MEDS ORDERED: NA CHLORIDE 0.9% 1,000 ML ONE (16:01)
[2019-11-17 16:12] LABS: Absolute Lymphocytes (CBC) 0.9 K/uL (0.7-4.9); Basophils % 1.1 % (0-1.3); Hematocrit 42.6 % (36.0-45.0); Lymphocytes % 11.8 % (15.3-44.8); MPV 9.8 fL (7.6-11.3); RBC Red Blood Cell Count 4.98 M/uL (3.86-4.86)
--- NOTE | 2019-11-17 16:15 | RAD REPORT ---
EXAM DESCRIPTION: RAD - Chest Single View - 11/17/2019 3:44 pm CLINICAL HISTORY: DYSPNEA Chest pain. COMPARISON: Abdomen 1 View (KUB) dated 07/02/2018; Chest Single View dated 10/14/2017; Chest Single V iew dated 10/13/2017; Chest Single View dated 06/27/2016 FINDINGS: Portable technique limits examination quality. Mild interstitial pulmonary edema is seen. Small 1 cm nodule is present in the left mid lung versus p rominent rib end. The heart is upper limit of normal in size. No displaced fractures.Nonemergent CT c hest followup is advised. IMPRESSION: Mild CHF.
[2019-11-17 16:18] LABS: Protime INR 1.66
[2019-11-17 16:29] LABS: Albumin 3.4 g/dL (3.4-5.0); Bilirubin Direct 0.2 mg/dL (0-0.2); Magnesium 2.8 mg/dL (1.8-2.4); Potassium 4.5 mmol/L (3.5-5.1); Protein, Total 7.1 g/dL (6.4-8.2)
--- NOTE | 2019-11-17 17:36 | RAD REPORT ---
EXAM DESCRIPTION: CTAbdomen Pelvis W Contrast - 11/17/2019 5:12 pm CLINICAL HISTORY: Abdominal pain. Abd pain;Abdominal distention COMPARISON: Abdomen Pelvis W Contrast dated 09/21/2018; Abdomen Pelvis W Contrast dated 07/01/2018 ; Abdomen Pelvis W Contrast dated 03/03/2017; Abdomen Pelvis W Contrast dated 06/27/2016 TECHNIQUE: Biphasic CT imaging of the abdomen and pelvis was performed with 100 ml non-ionic IV cont rast. All CT scans are performed using dose optimization technique as appropriate and may include automated exposure control or mA/KV adjustment according to patient size. FINDINGS: Mild linear subsegmental atelectasis is present in both lung bases. Cholecystectomy is noted. The liver demonstrates no focal mass or biliary dilatation. The spleen, vega creas, adrenal glands and kidneys are within normal limits. There is fairly significant distention of the colon with stool, particularly the right colon. Sigmoid diverticulosis is present without diverticulitis. The appendix is normal. No evidence of significan t lymphadenopathy. Moderate lumbar degenerative changes. IMPRESSION: Significant fecal retention is present throughout the colon.
[2019-11-17 18:55] LABS: Urine Blood NEGATIVE (NEG); Urine Glucose NEGATIVE (NEG); Urine Protein NEGATIVE (NEG)
[2019-11-17 19:48] LABS: Urine Bacteria 20-50 /HPF (<20); Urine Culture Reflex Order REFLEXED; Urine RBC <5 /HPF (NONE SEEN)
--- NOTE | 2019-11-17 20:10 | EDPHYS ---
Physician Documentation [facility] Name: Debra Sarkar Age: 83 yrs Sex: Female : 1935 Arrival Date: 11/17/2019 Time: 14:55 Bed 24 Private MD: [facility] Physician Khalif Tran HPI: 11/17 16:37 This 83 yrs old Female presents to ER via EMS with complaints of jr8 nausea/vomiting, constipation . 16:37 The patient presents to the emergency department with nausea, vomiting. Onset: The jr8 symptoms/episode began/occurred acutely, today. Possible causes: flare up of bowel problem, ulcerative colitis. The symptoms are aggravated by nothing. The symptoms are alleviated by nothing. Associated signs and symptoms: Pertinent positives: constipation. Severity of symptoms: At their worst the symptoms were moderate. The patient has experienced similar episodes in the past, several times. The patient has not recently seen a physician. Patient stated that she has been constipated for 7 days now. Unable to pass a significant amount of stool enough to stimulate a bowel movement. Stated that she tried to digitally disimpact but only could get out small amount. Now nauseated with dry heaving. Has had this in past and is suppose to be on daily medication for constipation but is not compliant. Stated that she has ended up septic before secondary to this problem . Historical: - Allergies: 15:48 Levaquin; vc 15:48 Lisinopril; vc 15:48 metformin; vc - Home Meds: 15:48 amlodipine 10 mg tab 1 tab once daily [Active]; clonidine HCl 0.3 mg Oral tab 1 tab vc every 8 hours [Active]; furosemide 40 mg Oral tab 1 tab once daily [Active]; hydralazine 25 mg oral tab [Active]; isosorbide mononitrate 30 mg Oral Tb24 1 tab once daily [Active]; levothyroxine 112 mcg oral tab [Active]; Miralax oral 1 packet once daily [Active]; Novolog Sliding scale Sub-Q three times a day [Active]; propafenone 225 mg Oral Tb24 1 cap every 12 hours [Active]; spironolactone 25 mg Oral tab 1 tab once daily [Active]; Xarelto 20 mg Oral tab 1 tab once daily [Active]; Levemir 100 unit/mL subcutaneous soln 35 35 units [Active]; Senokot S Oral as needed [Active]; Restasis 0.05 % ophthalmic dpet 1 drop 2 times per day [Active]; gabapentin 100 mg oral cap 3 times per day [Active]; - PMHx: 15:48 Atrial Fib; Diabetes - IDDM; Hypertension; lymphedema; vc - PSHx: 15:48 Cholecystectomy; Hysterectomy; vc - Immunization history:: Adult Immunizations up to date, Flu vaccine is up to date. - Coronavirus screen:: The patient has NOT traveled to [place], [place], or [place] in the past 14 days. The patient has NOT had contact with known/suspected case of Coronavirus? Proceed with normal triage procedures. - Social history:: Smoking status: Patient denies any tobacco usage or history of. - Ebola Screening: : Patient negative for fever greater than or equal to 101.5 degrees Fahrenheit, and additional compatible Ebola Virus Disease symptoms. ROS: 20:08 Eyes: Negative for injury, pain, redness, and discharge, ENT: Negative for injury, jr8 pain, and discharge, Neck: Negative for injury, pain, and swelling, Cardiovascular: Negative for chest pain, palpitations, and edema, Respiratory: Negative for shortness of breath, cough, wheezing, and pleuritic chest pain, Back: Negative for injury and pain, MS/Extremity: Negative for injury and deformity, Skin: Negative for injury, rash, and discoloration, Neuro: Negative for headache, weakness, numbness, tingling, and seizure. 20:08 Abdomen/GI: Positive for nausea, constipation, Negative for abdominal pain, diarrhea, abdominal distension, hematemesis, black/tarry stool, rectal bleeding, flatulence. Exam: 20:08 Eyes: Pupils equal round and reactive to light, extra-ocular motions intact. Lids and jr8 lashes normal. Conjunctiva and sclera are non-icteric and not injected. Cornea within normal limits. Periorbital areas with no swelling, redness, or edema. ENT: Nares patent. No nasal discharge, no septal abnormalities noted. Tympanic membranes are normal and external auditory canals are clear. Oropharynx with no redness, swelling, or masses, exudates, or evidence of obstruction, uvula midline. Mucous membranes moist. Neck: Trachea midline, no thyromegaly or masses palpated, and no cervical lymphadenopathy. Supple, full range of motion without nuchal rigidity, or vertebral point tenderness. No Meningismus. Cardiovascular: Regular rate and rhythm with a normal S1 and S2. No gallops, murmurs, or rubs. Normal PMI, no JVD. No pulse deficits. Respiratory: Lungs have equal breath sounds bilaterally, clear to auscultation and percussion. No rales, rhonchi or wheezes noted. No increased work of breathing, no retractions or nasal flaring. Abdomen/GI: Soft, non-tender, with normal bowel sounds. No distension or tympany. No guarding or rebound. No evidence of tenderness throughout. Back: No spinal tenderness. No costovertebral tenderness. Full range of motion. Skin: Warm, dry with normal turgor. Normal color with no rashes, no lesions, and no evidence of cellulitis. MS/ Extremity: Pulses equal, no cyanosis. Neurovascular intact. Full, normal range of motion. Neuro: Awake and alert, GCS 15, oriented to person, place, time, and situation. Cranial nerves II-XII grossly intact. Motor strength 5/5 in all extremities. Sensory grossly intact. Cerebellar exam normal. Normal gait. 20:08 Constitutional: The patient appears alert, awake, uncomfortable. jr8 Vital Signs: 15:00 BP 131 / 89; Pulse 52; Resp 15; Pulse Ox 98% on R/A; Weight 78.02 kg; Height 5 ft. 1 vc in. (154.94 cm); 16:00 BP 134 / 88; Pulse 50; Resp 17; Pulse Ox 97% on R/A; vc 17:00 BP 136 / 65; Pulse 48; Resp 18; Pulse Ox 96% on R/A; Pain 0/10; vc 18:30 Pulse 63; Resp 16; Pulse Ox 97% on R/A; Pain 0/10; vc 19:30 BP 135 / 65; Pulse 56; Pulse Ox 94% on R/A; vc 20:30 BP 130 / 85; Pulse 57; Pulse Ox 97% on R/A; vc 21:30 BP 140 / 80; Pulse 57; Pulse Ox 95% on R/A; Pain 0/10; vc 22:30 BP 145 / 68; Pulse 54; Resp 15; Pulse Ox 96% on R/A; vc 23:30 BP 147 / 60; Pulse 51; Resp 18; Pulse Ox 96% on R/A; vc 15:00 Body Mass Index 32.50 (78.02 kg, 154.94 cm) vc MDM: 15:00 Patient medically screened. [facility] 20:08 Data reviewed: vital signs, nurses notes, lab test result(s), radiologic studies, CT jr scan. Data interpreted: Pulse oximetry: on room air is 98 %. Interpretation: normal. Counseling: I had a detailed discussion with the patient and/or guardian regarding: the historical points, exam findings, and any diagnostic results supporting the discharge/admit diagnosis, lab results, radiology results, the need for further work-up and treatment in the hospital. Physician consultation: A Rogelio NAVARRETE was called at 20:09, was contacted at 20:09, regarding admission, to the medical/surgical unit. consult, patient's condition, and will see patient. 11/17 15:20 Order name: Basic Metabolic Panel; Complete Time: 16:36 [facility] 11/17 15:20 Order name: CBC with Diff; Complete Time: 16:23 [facility] 11/17 15:20 Order name: LFT's; Complete Time: 16:36 [facility] 11/17 15:20 Order name: Magnesium; Complete Time: 16:36 [facility] 11/17 15:20 Order name: PT-INR; Complete Time: 16:36 [facility] 11/17 15:20 Order name: Lipase; Complete Time: 16:36 [facility] 11/17 15:20 Order name: XRAY Chest (1 view); Complete Time: 16:23 [facility] 11/17 18:10 Order name: Urine Microscopic Only; Complete Time: 19:54 [facility] 11/17 18:52 Order name: Urine Dipstick--Ancillary (enter results) 11/17 18:56 Order name: Urine Dipstick-Ancillary [facility] 11/17 19:51 Order name: Urine Culture [facility] 11/18 01:39 Order name: Glucose, Ancillary Testing; Complete Time: 01:57 [facility] 11/18 05:35 Order name: CBC with Automated Diff [facility] 11/18 05:37 Order name: Basic Metabolic Panel [facility] 11/17 15:20 Order name: EKG; Complete Time: 15:21 [facility] 11/17 15:20 Order name: Cardiac monitoring; Complete Time: 15:39 [facility] 11/17 15:20 Order name: EKG - Nurse/Tech; Complete Time: 15:39 11/17 15:20 Order name: IV Saline Lock; Complete Time: 15:39 11/17 15:20 Order name: Labs collected and sent; Complete Time: 15:56 11/17 15:20 Order name: O2 Per Protocol; Complete Time: 15:40 11/17 15:20 Order name: O2 Sat Monitoring; Complete Time: 15:40 11/17 16:36 Order name: CT Abd/Pelvis - IV Contrast Only; Complete Time: 17:41 11/17 18:10 Order name: Straight Cath - Urine; Complete Time: 18:49 Administered Medications: 16:08 Drug: Zofran 4 mg Route: IVP; Site: right wrist; vc 16:30 Follow up: Response: No adverse reaction; Nausea is decreased vc 16:08 Drug: NS 0.9% 1000 ml Route: IV; Rate: 1000 ml; Site: right wrist; vc 11/18 00:51 Follow up: IV Status: Completed infusion 11/17 20:58 Drug: Rocephin 1 grams Route: IV; Rate: calculated rate; Site: right antecubital; vc 11/18 00:50 Follow up: Response: No adverse reaction; IV Status: Completed infusion 11/17 20:59 Drug: Fleet Enema 133 ml Route: AK; vc 11/18 00:51 Follow up: Response: No adverse reaction 11/17 22:36 Drug: Dulcolax Suppository 10 mg Route: AK; vc 11/18 00:50 Follow up: Response: No adverse reaction Disposition: 11:21 Co-signature as Attending Physician, Khalif Tran MD I agree with the assessment and gabbie plan of care. Disposition: 11/17/19 20:10 Hospitalization ordered by Ugo Mercado for Observation. Preliminary diagnosis are Constipation, Urinary tract infection, site not specified, Dehydration, Weakness. - Bed requested for Telemetry/MedSurg (observation). - Status is Observation. ss - Condition is Stable. - Problem is new. - Symptoms have improved. UTI on Admission? Yes Signatures: Dispatcher [employer] Alecia Benitez RN RN dw Anderson, Corey, MD MD cha Smirch, Shelby, RN RN ss Roszak, Josh, PA PA jr8 Malaika العراقي RN RN Maddie Lopez RN bb Corrections: (The following items were deleted from the chart) 11/17 20:09 20:08 Eyes: Pupils equal round and reactive to light, extra-ocular motions intact. Lids jr8 and lashes normal. Conjunctiva and sclera are non-icteric and not injected. Cornea within normal limits. Periorbital areas with no swelling, redness, or edema. ENT: Nares patent. No nasal discharge, no septal abnormalities noted. Tympanic membranes are normal and external auditory canals are clear. Oropharynx with no redness, swelling, or masses, exudates, or evidence of obstruction, uvula midline. Mucous membranes moist. Neck: Trachea midline, no thyromegaly or masses palpated, and no cervical lymphadenopathy. Supple, full range of motion without nuchal rigidity, or vertebral point tenderness. No Meningismus. Cardiovascular: Regular rate and rhythm with a normal S1 and S2. No gallops, murmurs, or rubs. Normal PMI, no JVD. No pulse deficits. Respiratory: Lungs have equal breath sounds bilaterally, clear to auscultation and percussion. No rales, rhonchi or wheezes noted. No increased work of breathing, no retractions or nasal flaring. Abdomen/GI: Soft, non-tender, with normal bowel sounds. No distension or tympany. No guarding or rebound. No evidence of tenderness throughout. Back: No spinal tenderness. No costovertebral tenderness. Full range of motion. Skin: Warm, dry with normal turgor. Normal color with no rashes, no lesions, and no evidence of cellulitis. MS/ Extremity: Pulses equal, no cyanosis. Neurovascular intact. Full, normal range of motion. Neuro: Awake and alert, GCS 15, oriented to person, place, time, and situation. Cranial nerves II-XII grossly intact. Motor strength 5/5 in all extremities. Sensory grossly intact. Cerebellar exam normal. Normal gait. jr8 22:46 20:10 Hospitalization Ordered by A Rogelio NAVARRETE for Observation. Preliminary diagnosis is dw Constipation; Urinary tract infection, site not specified; Dehydration; Weakness. Bed requested for Telemetry/MedSurg (observation). Status is Observation. Condition is Stable. Problem is new. Symptoms have improved. UTI on Admission? Yes. jr8 11/18 06:02 11/17 22:46 11/17/2019 20:10 Hospitalization Ordered by A Rogelio NAVARRETE for Observation. dw Preliminary diagnosis is Constipation; Urinary tract infection, site not specified; Dehydration; Weakness. Bed requested for [facility] ER HOLD. Status is Observation. Condition is Stable. Problem is new. Symptoms have improved. UTI on Admission? Yes. christina 11/18 08:15 06:02 11/17/2019 20:10 Hospitalization Ordered by A Rogelio NAVARRETE for Observation. ss Preliminary diagnosis is Constipation; Urinary tract infection, site not specified; Dehydration; Weakness. Bed requested for Telemetry/MedSurg (observation). Status is Observation. Condition is Stable. Problem is new. Symptoms have improved. UTI on Admission? Yes. christina
--- NOTE | 2019-11-17 20:10 | ER ---
Nurse's Notes [facility] Name: Debra Sarkar Age: 83 yrs Sex: Female : 1935 Arrival Date: 11/17/2019 Time: 14:55 Bed 24 Private MD: Diagnosis: Constipation;Urinary tract infection, site not specified;Dehydration;Weakness Presentation: 11/17 15:08 Presenting complaint: Patient states: "When I woke up from my nap after noon I was too vc weak to walk. At around 2:30 pm I started dry heaving and became nauseous. I believe it is related to my ulcerative colitis, last night I had to digitally remove my bowel to get started. I still feel like I have to go.". Transition of care: patient was not received from another setting of care. Onset of symptoms was November 17, 2019. Risk Assessment: Do you want to hurt yourself or someone else?. Initial Sepsis Screen: Does the patient meet any 2 criteria? No. Patient's initial sepsis screen is negative. Does the patient have a suspected source of infection? No. Patient's initial sepsis screen is negative. Care prior to arrival: None. 15:08 Method Of Arrival: EMS: [facility] vc 15:08 Acuity: LEX 2 vc Historical: - Allergies: 15:48 Levaquin; vc 15:48 Lisinopril; vc 15:48 metformin; vc - Home Meds: 15:48 amlodipine 10 mg tab 1 tab once daily [Active]; clonidine HCl 0.3 mg Oral tab 1 tab vc every 8 hours [Active]; furosemide 40 mg Oral tab 1 tab once daily [Active]; hydralazine 25 mg oral tab [Active]; isosorbide mononitrate 30 mg Oral Tb24 1 tab once daily [Active]; levothyroxine 112 mcg oral tab [Active]; Miralax oral 1 packet once daily [Active]; Novolog Sliding scale Sub-Q three times a day [Active]; propafenone 225 mg Oral Tb24 1 cap every 12 hours [Active]; spironolactone 25 mg Oral tab 1 tab once daily [Active]; Xarelto 20 mg Oral tab 1 tab once daily [Active]; Levemir 100 unit/mL subcutaneous soln 35 35 units [Active]; Senokot S Oral as needed [Active]; Restasis 0.05 % ophthalmic dpet 1 drop 2 times per day [Active]; gabapentin 100 mg oral cap 3 times per day [Active]; - PMHx: 15:48 Atrial Fib; Diabetes - IDDM; Hypertension; lymphedema; vc - PSHx: 15:48 Cholecystectomy; Hysterectomy; vc - Immunization history:: Adult Immunizations up to date, Flu vaccine is up to date. - Coronavirus screen:: The patient has NOT traveled to [place], [place], or [place] in the past 14 days. The patient has NOT had contact with known/suspected case of Coronavirus? Proceed with normal triage procedures. - Social history:: Smoking status: Patient denies any tobacco usage or history of. - Ebola Screening: : Patient negative for fever greater than or equal to 101.5 degrees Fahrenheit, and additional compatible Ebola Virus Disease symptoms. Screenin:49 Abuse screen: Denies threats or abuse. Nutritional screening: No deficits noted. vc Tuberculosis screening: No symptoms or risk factors identified. Fall Risk None identified. Assessment: 15:13 Reassessment: Patient wearing a heart monitor ordered by Dr. Osei. vc 15:50 General: Appears in no apparent distress. ill, Behavior is calm, cooperative, vc appropriate for age. Pain: Denies pain. Neuro: Level of Consciousness is awake, alert, obeys commands, Oriented to person, place, time. Cardiovascular: Patient's skin is warm and dry. Respiratory: Respiratory effort is even, unlabored. GI: Patient dry heaving, no vomit noted. GI: Reports constipation. : No signs and/or symptoms were reported regarding the genitourinary system. EENT: No signs and/or symptoms were reported regarding the EENT system. Derm: Skin is dry, Skin temperature is cool Bruising that is dark purple. Musculoskeletal: Range of motion: intact in all extremities. 16:30 Reassessment: Patient and/or family updated on plan of care and expected duration. Pain vc level reassessed. Patient denies pain at this time. 16:58 Reassessment: Patient to CT via stretcher. vc 17:18 Reassessment: Patient back from CT. vc 18:00 Reassessment: Patient and/or family updated on plan of care and expected duration. Pain bb level reassessed. Patient is alert, oriented x 3, equal unlabored respirations, skin warm/dry/pink. 19:00 Reassessment: Patient and/or family updated on plan of care and expected duration. Pain bb level reassessed. Patient laying with eyes closed resting peacefully. Family at bedside. 20:00 Reassessment: Patient and/or family updated on plan of care and expected duration. Pain bb level reassessed. Patient is alert, oriented x 3, equal unlabored respirations, skin warm/dry/pink. Patient denies pain at this time. 21:00 Reassessment: Patient stated that she was able to have a small bowel movement. Smear of bb mucus noted. 22:00 Reassessment: Patient and/or family updated on plan of care and expected duration. Pain bb level reassessed. Patient denies pain at this time. 23:00 Reassessment: Patient and/or family updated on plan of care and expected duration. Pain bb level reassessed. Patient repositioned in bed and brief changed. Vital Signs: 15:00 BP 131 / 89; Pulse 52; Resp 15; Pulse Ox 98% on R/A; Weight 78.02 kg; Height 5 ft. 1 vc in. (154.94 cm); 16:00 BP 134 / 88; Pulse 50; Resp 17; Pulse Ox 97% on R/A; vc 17:00 BP 136 / 65; Pulse 48; Resp 18; Pulse Ox 96% on R/A; Pain 0/10; vc 18:30 Pulse 63; Resp 16; Pulse Ox 97% on R/A; Pain 0/10; vc 19:30 BP 135 / 65; Pulse 56; Pulse Ox 94% on R/A; vc 20:30 BP 130 / 85; Pulse 57; Pulse Ox 97% on R/A; vc 21:30 BP 140 / 80; Pulse 57; Pulse Ox 95% on R/A; Pain 0/10; vc 22:30 BP 145 / 68; Pulse 54; Resp 15; Pulse Ox 96% on R/A; vc 23:30 BP 147 / 60; Pulse 51; Resp 18; Pulse Ox 96% on R/A; vc 15:00 Body Mass Index 32.50 (78.02 kg, 154.94 cm) vc ED Course: 14:55 Patient arrived in ED. ls4 15:00 Damien Johns PA is PHCP. jr8 15:00 Khalif Tran MD is Attending Physician. jr8 15:07 Malaika العراقي, MENG is Primary Nurse. vc 15:08 Arm band placed on left wrist. vc 15:10 Patient has correct armband on for positive identification. Bed in low position. Call vc light in reach. Side rails up X2. 15:12 Triage completed. vc 15:45 XRAY Chest (1 view) In Process Unspecified. EDMS 17:13 CT Abd/Pelvis - IV Contrast Only In Process Unspecified. EDMS 18:49 Urine Microscopic Only Sent. lt1 20:09 Ugo Mercado MD is Hospitalizing Provider. jr8 23:30 No provider procedures requiring assistance completed. Patient admitted, IV remains in bb place. Administered Medications: 16:08 Drug: Zofran 4 mg Route: IVP; Site: right wrist; vc 16:30 Follow up: Response: No adverse reaction; Nausea is decreased vc 16:08 Drug: NS 0.9% 1000 ml Route: IV; Rate: 1000 ml; Site: right wrist; vc 11/18 00:51 Follow up: IV Status: Completed infusion 11/17 20:58 Drug: Rocephin 1 grams Route: IV; Rate: calculated rate; Site: right antecubital; vc 11/18 00:50 Follow up: Response: No adverse reaction; IV Status: Completed infusion 11/17 20:59 Drug: Fleet Enema 133 ml Route: GA; vc 11/18 00:51 Follow up: Response: No adverse reaction 11/17 22:36 Drug: Dulcolax Suppository 10 mg Route: GA; vc 11/18 00:50 Follow up: Response: No adverse reaction Outcome: 11/17 20:10 Decision to Hospitalize by Provider. jr8 23:30 Admitted to ER Hold. Please see [facility] for further documentation. bb 23:30 Condition: good 23:30 Instructed on the need for admit. 11/18 08:15 Patient left the ED. ss Signatures: Dispatcher [employer] Maddie Daly RN RN bb Angely Tafoya RN RN Damien Johns PA PA jr8 Shahana Felipe RN RN 4 Galina Beyer lt1 Malaika العراقي RN RN vc Corrections: (The following items were deleted from the chart) 01:05 11/17 22:30 Pulse 51bpm; Pulse Ox 96% RA; bb bb 11/18 01:07 11/17 22:30 Pulse 54bpm; Pulse Ox 96% RA; bb vc 11/18 00:11/17 16:00 BP 134 / 88; Pulse 50bpm; Pulse Ox 97% RA; bb vc 11/18 00:11/17 17:00 Pulse 48bpm; bb vc 11/18 00:11/17 18:30 Pulse 63bpm; Resp 16bpm; Pulse Ox 97% RA; bb vc 11/18 00:11/17 19:30 Pulse 56bpm; Pulse Ox 94% RA; bb vc 11/18 00:11/17 20:30 Pulse 57bpm; Pulse Ox 97% RA; bb vc 11/18 00:11/17 21:30 Pulse 57bpm; Pulse Ox 95% RA; bb vc 11/18 00:11/17 23:30 BP 147 / 60; Pulse 51bpm; Pulse Ox 96% RA; bb vc
[2019-11-17] MEDS ORDERED: CEFTRIAXONE/SWI 1gm 1 GM/10 ML SYR ONE (20:37)
[2019-11-17] MEDS ORDERED: FLEET ENEMA ADULT PR ONE (20:37)
[2019-11-17] MEDS ORDERED: BISACODYL 10 MG RECTAL SUPP ONE (22:39)
[2019-11-17] MEDS ORDERED: D50W 25 GM/50 ML SYRINGE/VIAL IV PRN (23:28)
[2019-11-17] MEDS ORDERED: GLUCAGON 1 MG/VIAL IM PRN (23:28)
[2019-11-17] MEDS ORDERED: ONDANSETRON 4 MG/2 ML VIAL IV PRN (23:28)
[2019-11-17] MEDS: NA CHLORIDE 0.9% 1,000 ML IV SCH (23:28)
[2019-11-17] MEDS ORDERED: ACETAMINOPHEN 500 MG TAB PO PRN (23:28)
[2019-11-18 00:43] VITALS: BMI 32.5
[2019-11-18] MEDS ORDERED: NA CHLORIDE 0.9% 1,000 ML ONE (01:17)
--- NOTE | 2019-11-18 04:33 | HP ---
Date of Admission: 11/17/2019 Chief Complaint: Trouble walking. History Of Present Illness: This is an 83-year-old female patient who has history of constipation, had last normal bowel movement approximately 1 week ago. Yesterday, she was straining a lot and she reported that she strained for almost 2 hours to have a bowel movement and had a very small amount of stool with some blood in it. After that she got up and she slept overnight. This morning she got up, walked around, ate something and some time in the afternoon she called her daughter and reported that she was feeling very weak, had trouble getting up and moving around, so she was brought into the emergency room. She denies any abdominal pain, nausea, vomiting, fever, chills. After she was evaluated in the ER, she was admitted to the hospital under my service with significant problem with constipation and some urinary tract infection problem. I saw her in the ER, daughter was at bedside with her. Medications: List reviewed. Review of Systems: GI: As mentioned above. All other systems reviewed and negative. Allergies: TO LISINOPRIL, LEVAQUIN, AND METFORMIN. Social History: Negative for smoking or alcohol use. Family History: Significant for coronary artery disease and diabetes. Past Surgical History: Cholecystectomy, hysterectomy, partial thyroidectomy in 2009. Past Medical History: Significant for hypertension, hyperlipidemia, type 2 diabetes mellitus, ulcerative colitis, leg edema, paroxysmal atrial fibrillation , hypothyroidism, osteoarthritis at multiple sites, and osteopenia. Physical Examination: Vital Signs: Height 5 feet 1 inches, weight 172 pounds, temperature 97.9, pulse 52, blood pressure 131/89, respiratory rate 15, oxygen saturation 98%. General: Awake, alert, oriented, not in distress. HEENT: Head atraumatic, normocephalic. Conjunctivae nonerythematous. Sclerae white. Mouth, no thrush or edema noted. Ears/Nose, no mass, lesion, discharge noted. Neck: Supple. No JVD, lymph nodes, bruit, thyromegaly noted. Lungs: Bilateral good equal air entry. Clear to auscultation. No rhonchi. No rales. Heart: Normal heart sounds, no murmur or gallop. Abdomen: Soft, bowel sounds normal. No guarding, rigidity, tenderness, mass, hepatosplenomegaly, distention, or bruit noted. Extremities: Bilateral grade 1 pedal edema. Skin: No rash, ulcer, cellulitis. Lymphatics: No lymph node enlargement in neck, supraclavicular, infraclavicular region. Neuro: No focal neurological deficit. Chest: Unremarkable. External Genitalia: Deferred. Rectal: Deferred. Laboratory Data: White count 7.7, hemoglobin 14, and platelets 285. Sodium 139 , potassium 4.5, chloride 103, bicarb 31, BUN 21, creatinine 1.19, glucose 225. Liver function tests unremarkable. Urinalysis positive for nitrite and wbc 20 -50, bacteria 22. Chest x-ray was reported as mild CHF pattern, but clinically patient does not have any problems with congestive heart failure. CAT scan of abdomen with contrast shows a significant fecal retention present throughout the colon. Impression: 1. Constipation. 2. Urinary tract infection. 3. Hypertension. 4. Hyperlipidemia. 5. Type 2 diabetes mellitus. 6. Ulcerative colitis. 7. Paroxysmal atrial fibrillation. 8. Hypothyroidism. 9. Osteoarthritis, multiple sites. 10. Osteopenia. Plan: We will admit the patient to hospital for further evaluation and management of this problem. The patient is appropriate for observation. We will give empiric antibiotic for urinary tract infection. Treated her constipation problem with Dulcolax rectal suppository and then Fleet enema. I will see her tomorrow morning for followup. We will go ahead and assist her with ambulation tomorrow once she is safe to ambulate and constipation problem resolved, plan is to discharge her to go back to her home environment. Patient was instructed to take Senokot-S 2 tablets by mouth 2 times a day and she may continue to use her MiraLax on a daily basis. Details and plan of treatment discussed with the patient. BOLIVAR/FAUSTINA Voice ID: [id number] RANDA
[2019-11-18 05:11] LABS: Absolute Lymphocytes (CBC) 1.7 K/uL (0.7-4.9); Basophils % 0.8 % (0-1.3); Hematocrit 39.4 % (36.0-45.0); Lymphocytes % 20.1 % (15.3-44.8); MPV 9.9 fL (7.6-11.3); RBC Red Blood Cell Count 4.63 M/uL (3.86-4.86)
[2019-11-18 05:34] LABS: Potassium 3.7 mmol/L (3.5-5.1)
[2019-11-18] MEDS: BISACODYL 10 MG RECTAL SUPP PR SCH ×3 (06:00→21:00)
--- NOTE | 2019-11-18 06:50 | EKG ---
Test Date: 2019-11-17 Test Time: 15:08:20 Computing Consultant: [place] MEASUREMENT RESULTS: Intervals: Rate: 48 IL: 286 QRSD: 166 QT: 552 QTc: 493 [place]: P: 93 IL: 286 QRS: -55 T: 95 INTERPRETIVE STATEMENTS: Marked sinus bradycardia with 1st degree AV block Left bundle branch block Abnormal ECG Compared to ECG 09/21/2018 12:09:50 First degree AV block now present Left bundle-branch block now present Sinus rhythm no longer present Electronically Signed On 11-18-19 06:49:15 PLATE FURNACE OPERATOR by Walter Osei
[2019-11-18] MEDS: INSULIN -REGULAR HUMAN 50 UNIT/0.5 ML ML SQ SCH ×4 (07:30→21:08)
[2019-11-18] MEDS ORDERED: BISACODYL 10 MG RECTAL SUPP PR ONE (08:14)
[2019-11-18] MEDS: CEFTRIAXONE/SWI 1gm 1 GM/10 ML SYR IV SCH ×2 (10:00→21:08)
[2019-11-18] MEDS: MINERAL OIL 30 ML UCUP PO ONE ×2 (13:17→13:18)
[2019-11-18] MEDS: NA CHLORIDE 0.9% 1,000 ML IV SCH (13:18)
[2019-11-18] MEDS: JUVEN PACKET PO SCH (21:00)
[2019-11-18] MEDS ORDERED: CODEINE 30MG/APAP 300MG TAB PO PRN (21:27)
[2019-11-18] MEDS ORDERED: PROPAFENONE PO SCH (22:00)
[2019-11-18 22:06] VITALS: O2SAT 92
[2019-11-18] MEDS: cloNIDine HCL 0.1 MG TAB PO SCH (22:19)
[2019-11-18] MEDS ORDERED: PROPAFENONE HCL 150 MG TAB ONE (22:21)
--- NOTE | 2019-11-18 23:40 | PN ---
Date of Progress Note: 11/18/2019 Subjective: Patient was seen this morning for followup. No new complaints or problems reported by h er except she still did not have any bowel movement overnight. No abdominal pain. Has some nausea. Objective: Vital Signs: Reviewed. HEENT: Unremarkable. Lungs: Clear to auscultation. Heart: Heart sounds normal. Abdomen: Soft, bowel sounds normal. No guarding, rigidity, tenderness, or distention. Extremities: Leg edema remains unchanged. Laboratory Data: White count 8.5, hemoglobin 13.2, platelets 260. Sodium 141, potassium 3.7, chlori de 106, bicarb 29, BUN 15, creatinine 0.89, glucose 160. Impression: 1.Constipation. 2.Diabetes mellitus. 3.Hypertension. Plan: We will go ahead and give another Dulcolax rectal suppository and once she has bowel movement, then we will start GoLYTELY. Details were discussed with her. Continue other current medications. BOLIVAR/MODL Voice ID: [id number] Report ID: [id number]
[2019-11-19] MEDS: NA CHLORIDE 0.9% 1,000 ML IV SCH (00:34)
[2019-11-19] MEDS: cloNIDine HCL 0.1 MG TAB PO SCH ×2 (05:13→13:30)
[2019-11-19] MEDS: INSULIN -REGULAR HUMAN 50 UNIT/0.5 ML ML SQ SCH ×2 (07:30→11:30)
[2019-11-19] MEDS ORDERED: FUROSEMIDE 40 MG TABLET PO SCH (09:00)
[2019-11-19] MEDS ORDERED: PROPAFENONE 225 MG CAP PO SCH (09:00)
[2019-11-19] MEDS: JUVEN PACKET PO SCH (09:00)
[2019-11-19] MEDS ORDERED: PREDNISOLONE 1% OPTH SOLN 5ML RIGHT EYE SCH (09:00)
[2019-11-19] MEDS ORDERED: SPIRONOLACTONE 25 MG TABLET PO SCH (09:00)
[2019-11-19] MEDS: BISACODYL 10 MG RECTAL SUPP PR SCH (09:00)
[2019-11-19] MEDS ORDERED: AMLODIPINE 10 MG TAB PO SCH (09:00)
[2019-11-19] MEDS ORDERED: ISOSORBIDE MONO SR 30 MG TAB PO SCH (09:00)
[2019-11-19] MEDS ORDERED: LEVOTHYROXINE SOD 0.112 MG TAB PO SCH (09:00)
[2019-11-19] MEDS: HYDRALAZINE HCL 25 MG TABLET PO SCH ×2 (09:18→14:51)
[2019-11-19] MEDS: GABAPENTIN 100 MG CAP PO SCH ×2 (09:18→14:51)
[2019-11-19] MEDS: CEFTRIAXONE/SWI 1gm 1 GM/10 ML SYR IV SCH (09:19)
[2019-11-19 12:47] VITALS: BP 147/63; TEMP 97.7
[2019-11-19] MEDS ORDERED: RIVAROXABAN 20 MG TABLET PO SCH (17:00)
--- NOTE | 2019-11-20 04:55 | DS ---
Date of Discharge: 11/19/2019 Disposition: Discharged to go home. Subjective: Patient was seen this morning for followup. No new complaints or problems reported. Objective: Vital Signs: Reviewed. HEENT: Unremarkable. Lungs: Clear to auscultation. Heart: Sounds normal. Abdomen: Soft. Bowel sounds normal. No guarding, rigidity, tenderness, or distention. Extremities: No leg edema. Hospital Course: An 83-year-old pleasant female patient, admitted to the hospital after she came int o emergency room with complaints of trouble walking and had bad constipation problem. Please see dic leslie H and P for more information. CAT scan of the abdomen was negative for any acute changes but s how significant amount of constipation. On very first day when I saw her, we started her on Dulcolax rectal suppository and Fleet enema. She did not respond to it and next day, we repeated another dos e of Dulcolax rectal suppository and she started to have bowel movement and her constipation problem has resolved now. She was also noted to have urinary tract infection and was started on antibiotics. Her urine culture is growing gram-negative rods and today final report came back, it is growing [place] and it is sensitive to all different antibiotics. She will be discharged to go home on a culture specific antibiotics. I have instructed her to take stool softener/laxative as per order and I will see her at office for followup. Final Diagnoses: 1.Constipation. 2.Urinary tract infection. 3.Hypertension. 4.Hyperlipidemia. 5.Type 2 diabetes mellitus. 6.Ulcerative colitis. 7.Paroxysmal atrial fibrillation. 8.Hypothyroidism. 9.Osteoarthritis, multiple sites of osteopenia. Discharge Medications/instructions: 1.Continue prior home medication. 2.Take qzrc-wje-zohmptj Senokot-S 2 tablets by mouth 2 times a day. 3.MiraLAX 17 g powder mixed with 8 ounce of water and drink it 1 to 2 times a day for constipation. 4.Take Augmentin 875 mg 2 times a day for 1 week. 5.Follow up at my office either on 11/24/2019 or 11/25/2019 and the patient to call for an appointme nt. Laboratory Data: Initial sodium 139, potassium 4.5, chloride 103, bicarb 31, BUN 21, creatinine 1.19 , glucose 225. White count 7.7, hemoglobin 14, platelets 285. BOLIVAR/MODL Voice ID: [id number] Report ID: [id number]
== END 2019-11-19 17:10 | disposition home or self-care (01) ==
LOC: ER 14:50 → ERHOLD 22:28 → 4TH 11-18 07:53
PROVIDERS: ADMIT Internal Medicine; ATTEND Internal Medicine
DX: K59.00 Constipation, unspecified (principal); N39.0 Urinary tract infection, site not specified; B96.20 Unspecified Escherichia coli [E. coli] as the cause of diseases classified elsewhere; I10 Essential (primary) hypertension; E78.5 Hyperlipidemia, unspecified; E11.9 Type 2 diabetes mellitus without complications; I48.0 Paroxysmal atrial fibrillation; E03.9 Hypothyroidism, unspecified; M19.90 Unspecified osteoarthritis, unspecified site; M85.80 Other specified disorders of bone density and structure, unspecified site
CPT/HCPCS: 96365; 96361; 93005; 87088; 85025 ×2; 87086; 80048 ×2; 36415; 83735; 85610; 82947 ×7; 80076; 87077; 87186; 83690; 74177; 71045; 97116 ×3; 97161; 97530 ×3; 96375; 99285; 96366; Q9967; J0696 ×4; J7030 ×4; J2405 ×2; G0378 ×3; 81003; 81015

== ENCOUNTER 2019-11-24 00:18 | Observation (INO) | payer OTHER ==
--- OUTSIDE RECORDS SUMMARY | 2019-11-24 00:20 | XMS REPORT ---
:1935 Author Organization [facility] Address [address] [place] [address] Dr. Cespedes[address] [place] [id number] Care Team Providers Name Role Phone Unavailable Unavailable Unavailable Problems This patient has no known problems. Allergies, Adverse Reactions, Alerts This patient has no known allergies or adverse reactions. Medications This patient has no known medications.
[2019-11-24] MEDS ORDERED: MORPHINE 2 MG/ML SYR ONE (01:41)
[2019-11-24] MEDS ORDERED: FAMOTIDINE 20 MG/2 ML VIAL IV ONE (01:41)
[2019-11-24] MEDS ORDERED: ONDANSETRON 4 MG/2 ML VIAL ONE (01:41)
[2019-11-24] MEDS ORDERED: NA CHLORIDE 0.9% 500 ML ONE (01:41)
[2019-11-24] MEDS ORDERED: NA CHLORIDE 0.9% 1,000 ML ONE (01:41)
--- NOTE | 2019-11-24 02:41 | ER ---
Nurse's Notes [facility] Name: Debra Sarkar Age: 83 yrs Sex: Female : 1935 Arrival Date: 11/24/2019 Time: 00:28 Bed 7 Private MD: Diagnosis: Diarrhea, unspecified-colitis/enteritis;Syncope and collapse;Type 1 diabetes mellitus;Weakness;Low back pain Presentation: 11/24 00:28 Presenting complaint: EMS states: "around 1730 last night the pt starting having some jd3 diarrhea. the pt reports that she has gone about 8 times now. denies pain and nausea. she reported she was seen here around November 18 or so for constipation and was given medication and has been having periods of diarrhea since then.". Transition of care: patient was received from another setting of care (long-term care facility), assisted living: [facility]. Onset of symptoms was November 24, 2019. Risk Assessment: Do you want to hurt yourself or someone else? Patient reports no desire to harm self or others. Initial Sepsis Screen: Does the patient meet any 2 criteria? No. Patient's initial sepsis screen is negative. Does the patient have a suspected source of infection? No. Patient's initial sepsis screen is negative. Care prior to arrival: None. 00:28 Method Of Arrival: EMS: [facility] jd3 00:28 Acuity: LEX 3 jd3 Historical: - Allergies: 00:33 Levaquin; jd3 00:33 Lisinopril; jd3 00:33 metformin; jd3 - Home Meds: 00:33 amlodipine 10 mg tab 1 tab once daily [Active]; clonidine HCl 0.3 mg Oral tab 1 tab jd3 every 8 hours [Active]; furosemide 40 mg Oral tab 1 tab once daily [Active]; gabapentin 100 mg Oral cap 3 times per day [Active]; hydralazine 25 mg Oral tab [Active]; isosorbide mononitrate 30 mg Oral Tb24 1 tab once daily [Active]; Lantus Sub-Q 45 units daily [Active]; Levemir 100 unit/mL subcutaneous soln 35 35 UNITS [Active]; levothyroxine 112 mcg tab [Active]; Miralax Oral 1 packet once daily [Active]; Novolog Sliding scale Sub-Q three times a day [Active]; propafenone 225 mg Oral Tb24 1 cap every 12 hours [Active]; Restasis 0.05 % ophthalmic dpet 1 drop 2 times per day [Active]; Senokot S Oral as needed [Active]; spironolactone 25 mg Oral tab 1 tab once daily [Active]; Xarelto 20 mg Oral tab 1 tab once daily [Active]; - PMHx: 00:33 Diabetes - IDDM; Hypertension; Atrial Fib; lymphedema; jd3 - PSHx: 00:33 Cholecystectomy; Hysterectomy; jd3 - Immunization history:: Adult Immunizations up to date, Flu vaccine is up to date. - Coronavirus screen:: The patient has NOT traveled to [place], [place], or [place] in the past 14 days. The patient has NOT had contact with known/suspected case of Coronavirus? Proceed with normal triage procedures. - Social history:: Smoking status: Patient/guardian denies using tobacco, but has a distant history of tobacco abuse. - Ebola Screening: : Patient negative for fever greater than or equal to 101.5 degrees Fahrenheit, and additional compatible Ebola Virus Disease symptoms. Screenin:36 Abuse screen: Denies threats or abuse. Nutritional screening: No deficits noted. jd3 Tuberculosis screening: No symptoms or risk factors identified. Fall Risk Ambulatory Aid- None/Bed Rest/Nurse Assist (0 pts). Gait- Normal/Bed Rest/Wheelchair (0 pts) Mental Status- Oriented to own ability (0 pts). Total Kim Fall Scale indicates No Risk (0-24 pts). Assessment: 00:35 General: Appears in no apparent distress. comfortable, Behavior is calm, cooperative, jd3 appropriate for age. Pain: Denies pain. Neuro: Level of Consciousness is awake, alert, obeys commands, Oriented to person, place, time, situation. Cardiovascular: Denies chest pain, Capillary refill < 3 seconds Patient's skin is warm and dry. Respiratory: Airway is patent Respiratory effort is even, unlabored, Respiratory pattern is regular, symmetrical, Denies cough, shortness of breath. GI: Abdomen is round non-distended, Bowel sounds present X 4 quads. Abd is soft and non tender X 4 quads. Reports diarrhea, Patient currently denies abdominal pain, nausea, vomiting. : No signs and/or symptoms were reported regarding the genitourinary system. EENT: No signs and/or symptoms were reported regarding the EENT system. Derm: Skin is intact, Skin is dry, Skin is normal, Skin temperature is warm. Musculoskeletal: Circulation, motion, and sensation intact. Range of motion: intact in all extremities. 01:42 Reassessment: Patient appears in no apparent distress at this time. Patient and/or jd3 family updated on plan of care and expected duration. Pain level reassessed. Patient is alert, oriented x 3, equal unlabored respirations, skin warm/dry/pink. attempting to find a site for IV placement. pt reporting discomfort in her back when changing position in bed. 02:37 Reassessment: Patient appears in no apparent distress at this time. Patient and/or jd3 family updated on plan of care and expected duration. Pain level reassessed. Patient is alert, oriented x 3, equal unlabored respirations, skin warm/dry/pink. Patient states feeling better. 03:14 Reassessment: CT notified of pt finishing PO contrast. jd3 03:54 Reassessment: Patient appears in no apparent distress at this time. Patient and/or jd3 family updated on plan of care and expected duration. Pain level reassessed. Patient is alert, oriented x 3, equal unlabored respirations, skin warm/dry/pink. provider at bedside. 04:43 Reassessment: Patient appears in no apparent distress at this time. Patient and/or jd3 family updated on plan of care and expected duration. Pain level reassessed. Patient is alert, oriented x 3, equal unlabored respirations, skin warm/dry/pink. awaiting for CT scan results before admission. 05:56 Reassessment: Patient appears in no apparent distress at this time. Patient and/or jd3 family updated on plan of care and expected duration. Pain level reassessed. Patient is alert, oriented x 3, equal unlabored respirations, skin warm/dry/pink. report given to Alexia FAN. assisted pt to bedside toilet. 06:50 Reassessment: Patient appears in no apparent distress at this time. Patient and/or jd3 family updated on plan of care and expected duration. Pain level reassessed. Patient is alert, oriented x 3, equal unlabored respirations, skin warm/dry/pink. pt cleaned of incontinence. Vital Signs: 00:33 BP 152 / 79; Pulse 73; Resp 16 S; Temp 98.7(TE); Pulse Ox 98% on R/A; Weight 81.65 kg jd3 (R); Height 5 ft. 1 in. (154.94 cm) (R); Pain 0/10; 02:37 BP 168 / 60; Pulse 74; Resp 17 S; Pulse Ox 97% on R/A; jd3 03:54 BP 184 / 72; Pulse 75; Resp 18 S; Pulse Ox 98% on R/A; jd3 04:45 BP 164 / 54; Pulse 77; Resp 16 S; Pulse Ox 95% on R/A; jd3 05:59 BP 162 / 58; Pulse 76; Resp 17 S; Pulse Ox 97% on R/A; jd3 00:33 Body Mass Index 34.01 (81.65 kg, 154.94 cm) jd3 ED Course: 00:28 Patient arrived in ED. jd3 00:32 Triage completed. jd3 00:35 Khalif Tran MD is Attending Physician. gabbie 00:35 Arm band placed on. jd3 00:36 Patient has correct armband on for positive identification. Placed in gown. Bed in low jd3 position. Call light in reach. Side rails up X2. 01:12 Mario Alberto Tamez RN is Primary Nurse. jd3 01:25 Oral contrast given. vm2 01:50 Missed attempt(s): 22 gauge in left antecubital area. Bleeding controlled, band aid ds4 applied, catheter tip intact. 02:09 Ugo Mercado MD is Hospitalizing Provider. gabbie 02:16 Missed attempt(s): 20 gauge in right antecubital area. Bleeding controlled, band aid jd3 applied, catheter tip intact. 02:25 Lab(s) recollected, by me, sent to lab. Inserted 18 gauge 10 cm midline to right upper fc arm basilic vein on first attempt. Line with good blood return and flushes well. 03:00 Cleaned of incontinence. Linen changed. jd3 03:10 No provider procedures requiring assistance completed. jd3 05:59 Patient admitted, IV remains in place. jd3 07:00 Report given to Livier FAN. jd3 Administered Medications: 02:35 Drug: morphine 2 mg Route: IVP; Site: right upper arm; jd3 03:35 Follow up: Response: No adverse reaction; RASS: Alert and Calm (0) jd3 02:35 Drug: Zofran 4 mg Route: IVP; Site: right upper arm; jd3 03:35 Follow up: Response: No adverse reaction jd3 02:36 Drug: NS 0.9% 500 ml Route: IV; Rate: bolus; Site: right upper arm; jd3 06:09 Follow up: Response: No adverse reaction; IV Status: Completed infusion; IV Intake: jd3 500ml 02:36 Drug: NS 0.9% 1000 ml Route: IV; Rate: 125 ml/hr; Site: right upper arm; jd3 06:10 Follow up: Response: No adverse reaction; IV Status: Infusion continued upon admission jd3 02:36 Drug: Pepcid 20 mg Route: IVP; Site: right upper arm; jd3 03:35 Follow up: Response: No adverse reaction jd3 Intake: 06:09 IV: 500ml; Total: 500ml. jd3 Outcome: 02:12 Decision to Hospitalize by Provider. gabbie 05:58 Admitted to Med/surg accompanied by tech, via stretcher, room 419, with chart, Report jd3 called to Alexia FAN 05:58 Condition: stable 05:58 Instructed on the need for admit, Demonstrated understanding of instructions. 07:27 Patient left the ED. tw2 Signatures: Khalif Tran MD MD cha Chretien, Felicia, RN Matthew Cedillo ds4 Livier Reeves RN RN tw2 Kirstie Haque 2 Mario Alberto Tamez RN RN jd3 Corrections: (The following items were deleted from the chart) 02:36 02:35 Zofran 4 mg IVP in right antecubital jd3 jd3 07:11 06:50 Reassessment: Patient appears in no apparent distress at this time. Patient jd3 and/or family updated on plan of care and expected duration. Pain level reassessed. Patient is alert, oriented x 3, equal unlabored respirations, skin warm/dry/pink. pt cleaned of incontinence. pt ready for admit. jd3
--- NOTE | 2019-11-24 02:42 | EDPHYS ---
Physician Documentation [facility] Name: Debra Sarkar Age: 83 yrs Sex: Female : 1935 Arrival Date: 11/24/2019 Time: 00:28 Bed 7 Private MD: ED Physician Khalif Tran HPI: 11/24 01:07 This 83 yrs old Female presents to ER via EMS with complaints of diarrhea, gabbie back pain and near syncope. Historical: - Allergies: 00:33 Levaquin; jd3 00:33 Lisinopril; jd3 00:33 metformin; jd3 - Home Meds: 00:33 amlodipine 10 mg tab 1 tab once daily [Active]; clonidine HCl 0.3 mg Oral tab 1 tab jd3 every 8 hours [Active]; furosemide 40 mg Oral tab 1 tab once daily [Active]; gabapentin 100 mg Oral cap 3 times per day [Active]; hydralazine 25 mg Oral tab [Active]; isosorbide mononitrate 30 mg Oral Tb24 1 tab once daily [Active]; Lantus Sub-Q 45 units daily [Active]; Levemir 100 unit/mL subcutaneous soln 35 35 UNITS [Active]; levothyroxine 112 mcg tab [Active]; Miralax Oral 1 packet once daily [Active]; Novolog Sliding scale Sub-Q three times a day [Active]; propafenone 225 mg Oral Tb24 1 cap every 12 hours [Active]; Restasis 0.05 % ophthalmic dpet 1 drop 2 times per day [Active]; Senokot S Oral as needed [Active]; spironolactone 25 mg Oral tab 1 tab once daily [Active]; Xarelto 20 mg Oral tab 1 tab once daily [Active]; - PMHx: 00:33 Diabetes - IDDM; Hypertension; Atrial Fib; lymphedema; jd3 - PSHx: 00:33 Cholecystectomy; Hysterectomy; jd3 - Immunization history:: Adult Immunizations up to date, Flu vaccine is up to date. - Coronavirus screen:: The patient has NOT traveled to [place], [place], or [place] in the past 14 days. The patient has NOT had contact with known/suspected case of Coronavirus? Proceed with normal triage procedures. - Social history:: Smoking status: Patient/guardian denies using tobacco, but has a distant history of tobacco abuse. - Ebola Screening: : Patient negative for fever greater than or equal to 101.5 degrees Fahrenheit, and additional compatible Ebola Virus Disease symptoms. ROS: 01:29 Constitutional: Negative for fever, chills, and weight loss, Eyes: Negative for injury, gabbie pain, redness, and discharge, ENT: Negative for injury, pain, and discharge, Neck: Negative for injury, pain, and swelling, Cardiovascular: Negative for chest pain, palpitations, and edema, Abdomen/GI: Negative for abdominal pain, nausea, vomiting, diarrhea, and constipation, Back: Negative for injury and pain, : Negative for injury, bleeding, discharge, and swelling, MS/Extremity: Negative for injury and deformity, Skin: Negative for injury, rash, and discoloration, Neuro: Negative for headache, weakness, numbness, tingling, and seizure, Psych: Negative for depression, anxiety, suicide ideation, homicidal ideation, and hallucinations, Allergy/Immunology: Negative for hives, rash, and allergies, Endocrine: Negative for neck swelling, polydipsia, polyuria, polyphagia, and marked weight changes, Hematologic/Lymphatic: Negative for swollen nodes, abnormal bleeding, and unusual bruising. 01:29 Abdomen/GI: Positive for nausea, diarrhea, of the right upper quadrant, left upper quadrant, right lower quadrant and left lower quadrant. 01:29 Back: Positive for decreased range of motion, pain at rest, pain with movement. Exam: 01:29 Constitutional: This is a well developed, well nourished patient who is awake, alert, gabbie and in no acute distress. Head/Face: Normocephalic, atraumatic. Eyes: Pupils equal round and reactive to light, extra-ocular motions intact. Lids and lashes normal. Conjunctiva and sclera are non-icteric and not injected. Cornea within normal limits. Periorbital areas with no swelling, redness, or edema. ENT: Nares patent. No nasal discharge, no septal abnormalities noted. Tympanic membranes are normal and external auditory canals are clear. Oropharynx with no redness, swelling, or masses, exudates, or evidence of obstruction, uvula midline. Mucous membranes moist. Neck: Trachea midline, no thyromegaly or masses palpated, and no cervical lymphadenopathy. Supple, full range of motion without nuchal rigidity, or vertebral point tenderness. No Meningismus. Chest/axilla: Normal chest wall appearance and motion. Nontender with no deformity. No lesions are appreciated. Cardiovascular: Regular rate and rhythm with a normal S1 and S2. No gallops, murmurs, or rubs. Normal PMI, no JVD. No pulse deficits. Respiratory: Lungs have equal breath sounds bilaterally, clear to auscultation and percussion. No rales, rhonchi or wheezes noted. No increased work of breathing, no retractions or nasal flaring. Back: No spinal tenderness. No costovertebral tenderness. Full range of motion. Female : Normal external genitalia. Skin: Warm, dry with normal turgor. Normal color with no rashes, no lesions, and no evidence of cellulitis. MS/ Extremity: Pulses equal, no cyanosis. Neurovascular intact. Full, normal range of motion. Neuro: Awake and alert, GCS 15, oriented to person, place, time, and situation. Cranial nerves II-XII grossly intact. Motor strength 5/5 in all extremities. Sensory grossly intact. Cerebellar exam normal. Normal gait. Psych: Awake, alert, with orientation to person, place and time. Behavior, mood, and affect are within normal limits. 01:29 Abdomen/GI: Inspection: distension, Bowel sounds: normal, Palpation: mild abdominal tenderness, in all quadrants, Liver: is firm, Hernia: not appreciated. Vital Signs: 00:33 BP 152 / 79; Pulse 73; Resp 16 S; Temp 98.7(TE); Pulse Ox 98% on R/A; Weight 81.65 kg jd3 (R); Height 5 ft. 1 in. (154.94 cm) (R); Pain 0/10; 02:37 BP 168 / 60; Pulse 74; Resp 17 S; Pulse Ox 97% on R/A; jd3 03:54 BP 184 / 72; Pulse 75; Resp 18 S; Pulse Ox 98% on R/A; jd3 04:45 BP 164 / 54; Pulse 77; Resp 16 S; Pulse Ox 95% on R/A; jd3 05:59 BP 162 / 58; Pulse 76; Resp 17 S; Pulse Ox 97% on R/A; jd3 00:33 Body Mass Index 34.01 (81.65 kg, 154.94 cm) jd3 MDM: 00:35 Patient medically screened. [facility] 01:32 Data reviewed: vital signs, nurses notes, lab test result(s), EKG, radiologic studies, [facility] CT scan, plain films. 11/24 01:06 Order name: Basic Metabolic Panel [facility] 11/24 01:06 Order name: CBC with Diff [facility] 11/24 01:06 Order name: LFT's [facility] 11/24 01:06 Order name: Magnesium [facility] 11/24 01:06 Order name: NT PRO-BNP [facility] 11/24 01:06 Order name: PT-INR [facility] 11/24 01:06 Order name: Troponin (emerg Dept Use Only) [facility] 11/24 01:06 Order name: Lipase [facility] 11/24 01:06 Order name: Urine Culture [facility] 11/24 01:06 Order name: Stool Culture [facility] 11/24 01:06 Order name: Fecal Leukocyte Stain [facility] 11/24 03:25 Order name: Basic Metabolic Panel; Complete Time: 03:50 EDMS 11/24 03:25 Order name: Liver (Hepatic) Function; Complete Time: 03:50 EDMS 11/24 03:26 Order name: Troponin (Emerg Dept Use Only); Complete Time: 03:50 EDMS 11/24 01:06 Order name: XRAY Chest (1 view) [facility] 11/24 01:06 Order name: EKG; Complete Time: 04:00 [facility] 11/24 01:06 Order name: Cardiac monitoring; Complete Time: 01:13 [facility] 11/24 01:06 Order name: EKG - Nurse/Tech; Complete Time: 01:33 [facility] 11/24 01:09 Order name: CT Abd/Pelvis - PO and IV Contrast [facility] 11/24 03:26 Order name: NT PRO-BNP; Complete Time: 03:50 EDMS 11/24 03:26 Order name: Magnesium; Complete Time: 03:50 EDMS 11/24 03:37 Order name: CBC with Automated Diff; Complete Time: 03:50 EDMS 11/24 03:39 Order name: Protime (+INR); Complete Time: 03:50 EDMS 11/24 03:42 Order name: Lipase; Complete Time: 03:50 EDMS 11/24 04:05 Order name: Stool Culture EDMS 11/24 01:06 Order name: IV Saline Lock; Complete Time: 02:37 [facility] 11/24 01:06 Order name: Labs collected and sent; Complete Time: 02:37 [facility] 11/24 01:06 Order name: O2 Per Protocol; Complete Time: : gabbie 11/24 01:06 Order name: O2 Sat Monitoring; Complete Time: [facility] Administered Medications: 02:35 Drug: morphine 2 mg Route: IVP; Site: right upper arm; jd3 03:35 Follow up: Response: No adverse reaction; RASS: Alert and Calm (0) jd3 02:35 Drug: Zofran 4 mg Route: IVP; Site: right upper arm; jd3 03:35 Follow up: Response: No adverse reaction jd3 02:36 Drug: NS 0.9% 500 ml Route: IV; Rate: bolus; Site: right upper arm; jd3 06:09 Follow up: Response: No adverse reaction; IV Status: Completed infusion; IV Intake: jd3 500ml 02:36 Drug: NS 0.9% 1000 ml Route: IV; Rate: 125 ml/hr; Site: right upper arm; jd3 06:10 Follow up: Response: No adverse reaction; IV Status: Infusion continued upon admission jd3 02:36 Drug: Pepcid 20 mg Route: IVP; Site: right upper arm; jd3 03:35 Follow up: Response: No adverse reaction j Disposition: 11/24/19 02:12 Hospitalization ordered by Ugo Mercado for Inpatient Admission. Preliminary diagnosis are Diarrhea, unspecified - colitis/enteritis, Syncope and collapse, Type 1 diabetes mellitus, Weakness, Low back pain. - Bed requested for Telemetry/MedSurg (Inpatient). - Status is Inpatient Admission. tw2 - Condition is Fair. - Problem is new. - Symptoms have improved. Signatures: Dispatcher [employer] EDMS Erum Lopez RN RN Khalif Tran MD MD cha Wise, Tara RN RN tw2 Mario Alberto Tamez RN RN jd3 Corrections: (The following items were deleted from the chart) 02:12 02:12 Hospitalization Ordered by A Rogelio NAVARRETE for Inpatient Admission. Preliminary [facility] diagnosis is Diarrhea, unspecified; Syncope and collapse; Type 1 diabetes mellitus. Bed requested for Telemetry/MedSurg (Inpatient). Status is Inpatient Admission. Condition is Fair. Problem is new. Symptoms have improved. [facility] 02:12 11/24/2019 02:12 Hospitalization Ordered by A Rogelio NAVARRETE for Inpatient Admission. mw Preliminary diagnosis is Diarrhea, unspecified; Syncope and collapse; Type 1 diabetes mellitus; Weakness. Bed requested for Telemetry/MedSurg (Inpatient). Status is Inpatient Admission. Condition is Fair. Problem is new. Symptoms have improved. gabbie 04:06 02:20 11/24/2019 02:12 Hospitalization Ordered by A Rogelio NAVARRETE for Inpatient Admission. gabbie Preliminary diagnosis is Diarrhea, unspecified; Syncope and collapse; Type 1 diabetes mellitus; Weakness. Bed requested for Telemetry/MedSurg (Inpatient). Status is Inpatient Admission. Condition is Fair. Problem is new. Symptoms have improved. mw 05:08 04:06 11/24/2019 02:12 Hospitalization Ordered by A Rogelio NAVARRETE for Inpatient Admission. gabbie Preliminary diagnosis is Diarrhea, unspecified; Syncope and collapse; Type 1 diabetes mellitus; Weakness; Low back pain. Bed requested for Telemetry/MedSurg (Inpatient). Status is Inpatient Admission. Condition is Fair. Problem is new. Symptoms have improved. [facility] 07:27 05:08 11/24/2019 02:12 Hospitalization Ordered by A Rogelio NAVARRETE for Inpatient Admission. tw2 Preliminary diagnosis is Diarrhea, unspecified - colitis/enteritis; Syncope and collapse; Type 1 diabetes mellitus; Weakness; Low back pain. Bed requested for Telemetry/MedSurg (Inpatient). Status is Inpatient Admission. Condition is Fair. Problem is new. Symptoms have improved. gabbie
[2019-11-24 03:24] LABS: Albumin 3.2 g/dL (3.4-5.0); Bilirubin Direct 0.2 mg/dL (0-0.2); Bilirubin Total 0.8 mg/dL (0.2-1.0); Potassium 3.6 mmol/L (3.5-5.1); Protein, Total 6.7 g/dL (6.4-8.2); Troponin (Emerg Dept Use Only) 0.03 ng/mL (0.0-0.045)
[2019-11-24 03:37] LABS: Absolute Lymphocytes (CBC) 1.3 K/uL (0.7-4.9); Basophils % 1.3 % (0-1.3); Hematocrit 40.6 % (36.0-45.0); Lymphocytes % 13.9 % (15.3-44.8); MPV 9.5 fL (7.6-11.3); RBC Red Blood Cell Count 4.74 M/uL (3.86-4.86)
[2019-11-24 03:38] LABS: Protime INR 1.08
[2019-11-24] MEDS ORDERED: GLUCAGON 1 MG/VIAL IM PRN (08:58)
[2019-11-24] MEDS ORDERED: ACETAMINOPHEN 325 MG TABLET PO PRN (08:58)
[2019-11-24] MEDS ORDERED: MORPHINE 2 MG/ML SYR IV PRN (08:58)
[2019-11-24] MEDS ORDERED: D50W 25 GM/50 ML SYRINGE/VIAL IV PRN (08:58)
[2019-11-24] MEDS: INSULIN -REGULAR HUMAN 50 UNIT/0.5 ML ML SQ SCH ×4 (08:58→21:45)
[2019-11-24] MEDS ORDERED: ONDANSETRON 4 MG/2 ML VIAL IV PRN (08:58)
--- NOTE | 2019-11-24 09:10 | EKG ---
Test Date: 2019-11-24 Test Time: 01:30:37 Service Consultant: NADIA MEASUREMENT RESULTS: Intervals: Rate: 69 AL: 236 QRSD: 152 QT: 442 QTc: 473 Secor: P: 96 AL: 236 QRS: -64 T: 86 INTERPRETIVE STATEMENTS: Sinus rhythm with 1st degree AV block Left axis deviation Left bundle branch block Abnormal ECG Compared to ECG 11/17/2019 15:08:20 Left-axis deviation now present Sinus bradycardia no longer present Electronically Signed On 11-24-19 09:09:39 [employer] by Walter Osei
--- NOTE | 2019-11-24 09:26 | RAD REPORT ---
EXAM DESCRIPTION: Gerber Single View11/24/2019 4:39 am CLINICAL HISTORY: Abdominal pain COMPARISON: October 2019 FINDINGS: Nodular opacity mid left lung unchanged. Right lung appears clear. Heart is mildly enlarged
--- NOTE | 2019-11-24 11:18 | RAD REPORT ---
EXAM DESCRIPTION: CT - Abdomen Pelvis W Contrast - 11/24/2019 4:55 am CLINICAL HISTORY: DIARRHEA COMPARISON: CT abdomen and pelvis 11/17/2019. TECHNIQUE: Axial CT imaging of the abdomen and pelvis performed with intravenous contrast. Reformatt ed coronal and sagittal images reviewed. A dose reduction technique was utilized with automated exposure control according to patient size. FINDINGS: Bilateral lower lobe atelectasis/scarring without change. The liver is normal in size and contour. Mild fatty liver infiltration. There is moderate intra and e xtrahepatic biliary duct dilatation. Common bile duct is 1.5 cm. No distal obstructing stone or mass. Gallbladder has been resected. Normal spleen. Fatty atrophy of the pancreas. Normal adrenal glands. Small bilateral renal cysts are present. Mild right renal pelvic dilatation with no obstructing etiol ogy. Transition point is at the ureteropelvic junction with no visualized stone. No perinephric edema . There is significant abdominal aorta and common iliac artery atherosclerosis. No aneurysm. Normal shantel iber inferior vena cava. Mesenteric vessels appear normal. Normal stomach and small bowel loops. Appendix is not visualized. Fluid levels are noted throughout t he colon. No ascites or free air. No mesenteric adenopathy. Unremarkable bladder. No pelvic free fluid. No adenopathy. Uterus has been resected. There is partial bony fusion of L5 and S1. Generalized osteopenia. Mild levoconvex lumbar scoliotic c urve. Old mild superior endplate compression deformity of L3. Mild L4-5 diffuse disc bulge. Minimal d egenerative anterior dislocation of L4 on L5. Intact bony pelvis. Normal hips. IMPRESSION: 1. Diffuse colonic fluid compatible with enteritis. 2. Mild intra and extra hepatic biliary dilatation due to postcholecystectomy status. 3. Bilateral renal cysts. Mild fullness of the right renal pelvis is stable without obstructing etiol ogy. 4. Significant vascular disease. 5. Mild L4-5 diffuse disc bulge. Generalized osteopenia. Old L3 superior endplate fracture. Electronically signed by: Tsering Sargent DO 11/24/2019 4:43 AM CURATOR Due to temporary technical issues with the PACS/Fluency reporting system, reports are being signed by the in house radiologist as a courtesy to ensure prompt reporting. The interpreting radiologist is f ully responsible for the content of the report.
[2019-11-24 11:34] VITALS: BMI 34.0
--- NOTE | 2019-11-24 11:53 | RAD REPORT ---
EXAM DESCRIPTION: NM - Thoracolumbar Spine Ap Lat - 11/24/2019 9:53 am CLINICAL HISTORY: Back pain FINDINGS: The bones are osteoporotic. Prominent kyphosis is present. Mild scoliosis is seen. No fracture or dislocation is noted. Mild to moderate spondylosis involves the thoracic spine.
[2019-11-24 12:15] LABS: Urine Appearance CLEAR; Urine Bilirubin NEGATIVE (NEG); Urine Blood NEGATIVE (NEG); Urine Color YELLOW; Urine Glucose TRACE (NEG); Urine Protein NEGATIVE (NEG); Urine Specific Gravity 1.015 (1.005-1.030); Urine Urobilinogen 0.2 mg/dL (0.2-1.0); Urine pH 6.5 (5.0-7.0)
[2019-11-24 12:19] LABS: Urine Microscopic Reflex ORDER UMIC
[2019-11-24 12:39] LABS: Urine Amorphous Sediment 1+ /HPF (NONE SEEN); Urine Bacteria 20-50 /HPF (<20); Urine Culture Reflex Order REFLEXED
[2019-11-24] MEDS: CODEINE 30MG/APAP 300MG TAB PO PRN (14:05)
[2019-11-24] MEDS: LIDOCAINE 4% PATCH TOP SCH (14:06)
[2019-11-24] MEDS: GABAPENTIN 100 MG PO SCH ×2 (14:11→21:44)
[2019-11-24] MEDS: CLONIDINE HCL 0.3 MG PO SCH ×2 (14:12→21:44)
[2019-11-24] MEDS: HYDRALAZINE HCL 25 MG PO SCH ×2 (14:13→21:43)
[2019-11-24] MEDS: AMLODIPINE 10 MG PO SCH (14:14)
[2019-11-24] MEDS: LEVOTHYROXINE SODIUM 112 MCG PO SCH (14:15)
[2019-11-24] MEDS: FUROSEMIDE 40 MG PO SCH (14:15)
[2019-11-24] MEDS: PROPAFENONE 225 MG PO SCH ×2 (14:16→21:42)
[2019-11-24] MEDS: NA CHLORIDE 0.9% 1,000 ML IV SCH ×2 (14:25→18:58)
[2019-11-24 15:08] LABS: C.diff Antigen/Toxin Ag neg : Tox neg (NEG : NEG)
[2019-11-24] MEDS: RIVAROXABAN 20 MG PO SCH (16:54)
[2019-11-24] MEDS: JUVEN PACKET PO SCH (21:46)
[2019-11-25] MEDS: CODEINE 30MG/APAP 300MG TAB PO PRN (00:41)
[2019-11-25] MEDS: NA CHLORIDE 0.9% 1,000 ML IV SCH (00:42)
[2019-11-25 04:40] LABS: Absolute Lymphocytes (CBC) 1.4 K/uL (0.7-4.9); Basophils % 0.9 % (0-1.3); Hematocrit 33.4 % (36.0-45.0); Lymphocytes % 20.2 % (15.3-44.8); MPV 9.5 fL (7.6-11.3); RBC Red Blood Cell Count 3.81 M/uL (3.86-4.86)
[2019-11-25 04:47] LABS: Potassium 3.6 mmol/L (3.5-5.1)
--- NOTE | 2019-11-25 06:06 | HP ---
Date of Admission: 11/24/2019 Chief Complaint: Back pain. History Of Present Illness: An 83-year-old female patient who was in hospital last week with severe constipation problem. Her constipation problem got resolved with therapy and she was discharged to [facility] home past week on Friday. Patient says she was doing fine, but as of Friday, she started to have diarrhea. Friday and Friday, she had about 2 bowel movement on each day, which was loose watery d iarrhea type of stool. As of Friday, her diarrhea got worse and yesterday, she had probably about 10 watery diarrhea stool. She was feeling very weak and reported that every time she got up and tried to walk, she was feeling weak as if she was going to faint. She is also having lot of back pain that started in last few days and has gotten worse. Her back pain is in the left lower back. Denies any radiation to leg. After she was evaluated in the ER, she was admitted to the hospital. Patient say s that her diarrhea is so bad that she is not even able to make it to the bathroom and she had lot of incontinence spell in her apartment because she was not able to make it to the bathroom. Review of Systems: GI: As mentioned above. Musculoskeletal: As mentioned above. All other systems reviewed and negative. Medications List: Reviewed. Allergies: TO LISINOPRIL, LEVAQUIN, AND METFORMIN. Social History: Negative for smoking and alcohol use. Family History: Significant for coronary artery disease and diabetes. Past Surgical History: Cholecystectomy, hysterectomy, partial thyroidectomy in 2008. Past Medical History: Significant for hypertension, hyperlipidemia, type 2 diabetes mellitus, ulcera tive colitis, leg edema, paroxysmal atrial fibrillation, hypothyroidism, osteoarthritis at multiple s ites, osteopenia. Physical Examination: Vital Signs: This morning when I saw her, temperature 97.8, pulse 80, respiratory rate 16, blood pre ssure 180/84, oxygen saturation 95%. Height 5 feet 1 inch. Weight 180 pounds. General: Awake, alert, oriented, not in distress. HEENT: Head atraumatic, normocephalic. Conjunctivae nonerythematous. Sclerae white. Mouth, no thr ush or edema noted. Ears/Nose, no mass, lesion, discharge noted. Neck: Supple. No JVD, lymph nodes, bruit, thyromegaly noted. Lungs: Bilateral good equal air entry. Clear to auscultation. No rhonchi. No rales. Heart: Normal heart sounds, no murmur or gallop. Abdomen: Soft, bowel sounds normal. No guarding, rigidity, tenderness, mass, hepatosplenomegaly, dis tention, or bruit noted. Extremities: No leg edema. No calf tenderness. Skin: No rash, ulcer, cellulitis. Lymphatics: No lymph node enlargement in neck, supraclavicular, infraclavicular region. Neuro: No focal neurological deficit. Chest: Unremarkable. External Genitalia: Deferred. Rectal: Deferred. Laboratory Data: White count 9.7, hemoglobin 13.5, platelets 268. Sodium 140, potassium 3.6, chlori de 104, bicarb 27, BUN 11, creatinine 1.11, glucose 174. Liver function tests unremarkable. CAT sca n of abdomen shows changes of enteritis and x-ray of thoracic and lumbar spine shows evidence of dege nerative joint disease. No fracture. Impression: 1.Acute gastroenteritis. 2.Volume depletion. 3.Osteoarthritis, multiple sites. 4.Type 2 diabetes mellitus. 5.Hypertension. 6.Hyperlipidemia. 7.Paroxysmal atrial fibrillation. 8.Hypothyroidism. Plan: Admit patient to hospital for further evaluation and management of this problem. Patient is a ppropriate for inpatient and is expected to spend 2 midnights in hospital. We will go ahead and cont inue home medications per order. IV fluid will be given and empiric antibiotic will be given per ord er. We will go ahead and get a stool for C difficile and culture. Lidocaine patch was ordered to be applied to back for her pain and pain medication was ordered. I will see her tomorrow for followup. If her symptoms does not improve, we may have to consider steroid medication for short time. She h as a history of ulcerative colitis. BOLIVAR/MODL Voice ID: [id number]
[2019-11-25] MEDS: INSULIN -REGULAR HUMAN 50 UNIT/0.5 ML ML SQ SCH ×3 (07:30→16:27)
[2019-11-25 08:08] VITALS: O2SAT 94
[2019-11-25] MEDS: JUVEN PACKET PO SCH (09:00)
[2019-11-25] MEDS ORDERED: ENSURE HIGH PROTEIN 237 ML CAN PO SCH (09:00)
[2019-11-25] MEDS: PROPAFENONE 225 MG PO SCH (09:27)
[2019-11-25] MEDS: GABAPENTIN 100 MG PO SCH ×2 (09:28→12:24)
[2019-11-25] MEDS: CLONIDINE HCL 0.3 MG PO SCH ×2 (09:29→12:26)
[2019-11-25] MEDS: AMLODIPINE 10 MG PO SCH (09:31)
[2019-11-25] MEDS: HYDRALAZINE HCL 25 MG PO SCH ×2 (09:31→12:25)
[2019-11-25] MEDS: LIDOCAINE 4% PATCH TOP SCH (09:32)
[2019-11-25] MEDS: FUROSEMIDE 40 MG PO SCH (09:32)
[2019-11-25] MEDS: LEVOTHYROXINE SODIUM 112 MCG PO SCH (09:34)
[2019-11-25] MEDS: RIVAROXABAN 20 MG PO SCH (16:28)
[2019-11-25 16:33] VITALS: BP 104/51; TEMP 97.4
--- NOTE | 2019-11-26 03:31 | DS ---
Date of Discharge: 11/25/2019 Disposition: Discharged to go home. Physical Examination: HEENT: Unremarkable. Lungs: Clear to auscultation. Heart: Heart sounds normal. Abdomen: Soft, bowel sounds normal. No guarding, rigidity, tenderness, or distention. Extremities: No leg edema. Laboratory Data: CAT scan of the abdomen done in the emergency room shows acute enteritis type of pr oblem. White count was 9.7, hemoglobin 13.5, platelets 268. Sodium 140, potassium 3.6, chloride 104 , bicarb 27, BUN 11, creatinine 1.11, glucose 174. Liver function tests unremarkable. X-ray of the thoracic and lumbar spine showed evidence of spondylosis and no sign of fracture. Stool for C diff c gordy back negative. Repeat blood work today, white count 6.9, hemoglobin 11, platelets 218. Discharge Medications And Instructions: 1.Continue all prior home medications. 2.Take Tylenol 500 mg 1 tablet by mouth 3 times a day as needed for back pain. 3.Use heating pad as needed for back pain. 4.Use [id number] lidocaine patch, apply 1 patch to the area of her back in the morning and cintia e it off at bedtime. 5.Follow up at my office next week on 11/30/2019 or 12/01/2019 and the patient to call office for ap pointment. Final Diagnoses: 1.Acute gastroenteritis. 2.Valium depletion. 3.Osteoarthritis, multiple sites. 4.Anemia, unspecified. 5.Type 2 diabetes mellitus. 6.Hypertension. 7.Hyperlipidemia. 8.Paroxysmal atrial fibrillation. 9.Hypothyroidism. Hospital Course: This 83-year-old female patient came into the emergency room with complaints of yael rrhea, feeling weak, and back pain. See dictated H and P for more information. After patient was ev aluated in the emergency room, she was admitted to the hospital, she was given IV fluid and her diarr hea problem resolved as of yesterday and at noon time she did not have any more diarrhea and she is t olerating diet very well. For her back pain, we did evaluate her with x-ray and no sign of any fract ure. The patient was admitted last week with constipation problem and we are not sure whether diarrh ea is the result of her recovery from constipation problem or she may have underlying acute gastroent eritis. In any case, she has not had any more diarrhea as of yesterday noon time. She is tolerating diet very well, ambulating well. Back pain is better with lidocaine patch and Tylenol use. I would like to avoid using any narcotic medication because she has longstanding history of constipation and using narcotic medication will likely make her constipation problem worse and this was discussed wit h her today. She cannot use any anti-inflammatory medication because she is on anticoagulant medicat ion. Patient was discharged in stable condition with above-mentioned medication instruction. BOLIVAR/MODL Voice ID: [id number] Report ID: [id number]
== END 2019-11-25 18:15 | disposition home health service (06) ==
LOC: ER 00:18 → ERHOLD 04:55 → INTOOBSV 04:55 → 4TH 06:03
PROVIDERS: ADMIT Internal Medicine; ATTEND Internal Medicine
DX: E86.9 Volume depletion, unspecified (principal); K52.9 Noninfective gastroenteritis and colitis, unspecified; M15.9 Polyosteoarthritis, unspecified; E11.9 Type 2 diabetes mellitus without complications; I10 Essential (primary) hypertension; I48.0 Paroxysmal atrial fibrillation; E03.9 Hypothyroidism, unspecified
CPT/HCPCS: 96361; 93005; 87088; 87045; 85025 ×2; 80048 ×2; 36415 ×2; 83735; 89055; 85610; 82947 ×6; 80076; 87046; 87324; 84484; 83690; 83880; 87449; 74177; 71045; 72080; 96375; 96374; 99285; Q9967; J2270; J7040; J7030 ×3; J2405; G0378 ×3; 81003; 81015; 87086

== ENCOUNTER 2019-12-10 09:03 | Inpatient (IN) | payer OTHER ==
--- OUTSIDE RECORDS SUMMARY | 2019-12-10 09:05 | XMS REPORT ---
:1935 Author Organization [facility] Address [address] [place] [address] Dr. Cespedes[address] [place] [id number] Care Team Providers Name Role Phone Unavailable Unavailable Unavailable Problems This patient has no known problems. Allergies, Adverse Reactions, Alerts This patient has no known allergies or adverse reactions. Medications This patient has no known medications.
[2019-12-10] MEDS ORDERED: PROMETHAZINE INJ 25 MG/ML AMP ONE ×2 (09:19→13:06)
[2019-12-10 09:36] LABS: Absolute Lymphocytes (CBC) 0.8 K/uL (0.7-4.9); Basophils % 0.8 % (0-1.3); Hematocrit 49.1 % (36.0-45.0); Lymphocytes % 5.8 % (15.3-44.8); MPV 9.4 fL (7.6-11.3); RBC Red Blood Cell Count 5.65 M/uL (3.86-4.86)
[2019-12-10 09:53] LABS: Albumin 3.9 g/dL (3.4-5.0); Bilirubin Direct 0.3 mg/dL (0-0.2); Bilirubin Total 1.2 mg/dL (0.2-1.0); Protein, Total 8.4 g/dL (6.4-8.2)
[2019-12-10] MEDS ORDERED: NA CHLORIDE 0.9% 1,000 ML ONE (10:08)
[2019-12-10 10:14] LABS: Blood Morphology Comment NOT SEEN (NOT SEEN); Platelet Estimate ADEQ; Urine White Blood Cell Casts OK
[2019-12-10] MEDS ORDERED: METOCLOPRAMIDE 10 MG/2mL INJ ONE ×2 (10:52→14:56)
--- NOTE | 2019-12-10 10:57 | RAD REPORT ---
EXAM DESCRIPTION: CT - Abdomen Pelvis W Contrast - 12/10/2019 10:35 am CLINICAL HISTORY: Abdominal pain/vomiting COMPARISON: November [address] TECHNIQUE: Computed axial tomography of the abdomen pelvis was obtained. 100 cc Isovue-300 was admin istered intravenously. Oral contrast was not requested which limits evaluation of bowel. All CT scans are performed using dose optimization technique as appropriate and may include automated exposure control or mA/KV adjustment according to patient size. FINDINGS: Cholecystectomy. Small hiatal hernia The liver, spleen, pancreas, and adrenals appear unremarkable. Small renal cysts There is no evidence of diverticulitis. Atherosclerotic disease Development of a mild compression fracture involving the superior endplate of the L3 vertebral body e stimated to be 15% compression IMPRESSION: Acute/subacute mild compression fracture L3 vertebral body
--- NOTE | 2019-12-10 12:41 | ER ---
Nurse's Notes [facility] Name: Debra Sarkar Age: 84 yrs Sex: Female : 1935 Arrival Date: 12/10/2019 Time: 09:05 Bed 8 Private MD: Diagnosis: Dehydration;Intractable Vomiting Presentation: 12/10 09:06 Presenting complaint: EMS states: N/V upon waking today. 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 Transition of care: patient was not received from another setting of care. Onset of symptoms was December 10, 2019. Risk Assessment: Do you want to hurt yourself or someone else? Patient reports no desire to harm self or others. Initial Sepsis Screen: Does the patient meet any 2 criteria? HR > 90 bpm. No. Patient's initial sepsis screen is negative. Does the patient have a suspected source of infection? No. Patient's initial sepsis screen is negative. Care prior to arrival: Medication(s) given: zofran 4 mg. 09:06 Method Of Arrival: EMS hb 09:06 Acuity: LEX 3 hb Historical: - Allergies: 09:08 Levaquin; hb 09:08 Lisinopril; hb 09:08 metformin; hb 09:08 Demerol; hb - PMHx: 09:08 Atrial Fib; Diabetes - IDDM; lymphedema; Hypertension; hb - PSHx: 09:08 Cholecystectomy; Hysterectomy; hb - Immunization history:: Adult Immunizations up to date. - Coronavirus screen:: The patient has NOT traveled to [place] in the past 14 days. The patient has NOT had contact with known/suspected case of Coronavirus? Proceed with normal triage procedures. - Social history:: Smoking status: Patient denies any tobacco usage or history of. - Ebola Screening: : No symptoms or risks identified at this time. Screenin:08 Abuse screen: Denies threats or abuse. Denies injuries from another. Nutritional sg screening: No deficits noted. Tuberculosis screening: No symptoms or risk factors identified. Never had TB. Fall Risk None identified. Assessment: 09:10 General: Appears in no apparent distress. uncomfortable, unkempt, well developed, sv Behavior is calm, cooperative, appropriate for age. Pain: Denies pain. Neuro: Level of Consciousness is awake, alert, obeys commands, Oriented to person, place, time, situation, Moves all extremities. Full function Speech is normal. Respiratory: Airway is patent Respiratory effort is even, unlabored, Respiratory pattern is regular, symmetrical. GI: Abdomen is round Abd is soft and non tender X 4 quads. Reports nausea, vomiting. Derm: Skin is pale. 13:29 Reassessment: Patient appears in no apparent distress at this time. Patient and/or sv family updated on plan of care and expected duration. Pain level reassessed. Patient is alert, oriented x 3, equal unlabored respirations, skin warm/dry/pink. 14:55 Reassessment: Patient appears in no apparent distress at this time. Patient and/or sv family updated on plan of care and expected duration. Pain level reassessed. Patient is alert, oriented x 3, equal unlabored respirations, skin warm/dry/pink. GI: Reports nausea. 16:00 Reassessment: Attempted to call report, nurse to call back. sv 16:02 Reassessment: Patient appears in no apparent distress at this time. Patient and/or sv family updated on plan of care and expected duration. Pain level reassessed. Patient is alert, oriented x 3, equal unlabored respirations, skin warm/dry/pink. Patient states symptoms have improved. 16:52 Reassessment: Patient appears in no apparent distress at this time. Patient and/or sv family updated on plan of care and expected duration. Pain level reassessed. Patient is alert, oriented x 3, equal unlabored respirations, skin warm/dry/pink. Vital Signs: 09:06 BP 147 / 84; Pulse 94; Resp 16; Temp 98.3; Pulse Ox 98% ; Weight 80.74 kg; Height 5 ft. hb 1 in. (154.94 cm); Pain 0/10; 11:00 Pulse 90; Resp 16; Pulse Ox 99% ; sv 13:30 BP 189 / 86; Pulse 94; Resp 16; Pulse Ox 97% ; sv 14:29 BP 179 / 83; Pulse 91; Resp 16; Temp 98.2(O); Pulse Ox 95% ; sv 15:18 BP 176 / 76; Pulse 100; Resp 16; Pulse Ox 97% ; sv 16:02 BP 177 / 75; Pulse 100; Resp 16; Pulse Ox 95% ; sv 16:45 BP 179 / 77; Pulse 99; Resp 16; Pulse Ox 95% on R/A; sv 09:06 Body Mass Index 33.63 (80.74 kg, 154.94 cm) hb ED Course: 09:05 Patient arrived in ED. hb 09:07 Triage completed. hb 09:08 Arm band placed on. hb 09:08 quality assurance monitor final on. Pulse ox on. NIBP on. sg 09:08 Patient has correct armband on for positive identification. Bed in low position. Call sg light in reach. Side rails up X2. Adult w/ patient. 09:11 Carolina Prado, RN is Primary Nurse. sv 09:15 Inserted saline lock: 20 gauge in left antecubital area, using aseptic technique. Blood sv collected. Flushed left antecubital with 5 ml normal saline. 09:48 Natalio Quigley PA is PHCP. [facility] 09:48 Sidney Elliott MD is Attending Physician. [facility] 10:49 CT Abd/Pelvis - IV Contrast Only In Process Unspecified. EDMS 10:57 Warm blanket given. Pillow given. Verbal reassurance given. sg 12:10 Straight cath inserted, using sterile technique, Specimen obtained. Returned mandeep dh3 urine. Patient tolerated well. 15 Fr. 12:38 Ugo Mercado MD is Hospitalizing Provider. [facility] 13:25 Inserted saline lock: 24 gauge in right forearm, using aseptic technique. Flushed right sv forearm with 2 ml normal saline. 13:25 IV discontinued, intact, bleeding controlled, Pressure dressing applied, IV d/c'd to sv the L AC d/t infiltration. 16:02 No provider procedures requiring assistance completed. Patient admitted, IV remains in sv place. intact. Administered Medications: 09:17 Drug: Phenergan 12.5 mg Route: IVP; Infused Over: 2 mins; Site: left antecubital; sv 09:30 Follow up: Response: No adverse reaction sv 10:08 Drug: NS 0.9% 1000 ml Route: IV; Rate: 1 bolus; Site: left antecubital; dm5 12:00 Follow up: Response: No adverse reaction; IV Status: Completed infusion; IV Intake: sv 1000ml 10:53 Drug: Reglan 10 mg Route: IVP; Site: left antecubital; dm5 12:00 Follow up: Response: No adverse reaction sv 13:29 Drug: Promethazine 12.5 mg Route: IVP; Site: right forearm; sv 14:00 Follow up: Response: No adverse reaction; Nausea is decreased sv 13:29 Drug: NS 0.9% 1000 ml Route: IV; Rate: 100 ml/hr; Site: right forearm; sv 16:52 Follow up: Response: No adverse reaction; IV Status: Infusion continued upon admission sv 13:36 Drug: Zosyn 3.375 grams Route: IVPB; Infused Over: 60 mins; Site: right forearm; sv 14:35 Follow up: Response: No adverse reaction; IV Status: Completed infusion; IV Intake: sv 100ml 15:00 Drug: Reglan 10 mg Route: IVP; Infused Over: 1 hrs; Site: right forearm; sv 15:15 Follow up: Response: No adverse reaction sv Intake: 12:00 IV: 1000ml; Total: 1000ml. sv 14:35 IV: 100ml; Total: 1100ml. sv Output: 12:15 Urine: 500ml (Straight Cath); Total: 500ml. sv Outcome: 12:39 Decision to Hospitalize by Provider. [facility] 16:44 Admitted to Med/surg accompanied by tech, family with patient, via stretcher, room 402, sv with chart, Report called to Gail FAN 16:44 Condition: stable 16:44 Instructed on the need for admit. 16:52 Patient left the ED. sv Signatures: Dispatcher [employer] EDMS Pily Townsend, RN Carolina Hilton RN RN sv Gay, Steven RN Natalio Ramirez PA PA Elizabeth Ramírez RN RN hb Herrera, Deanna dh3 Corrections: (The following items were deleted from the chart) 12:21 12:20 Straight cath inserted, using sterile technique, Specimen obtained. Returned dh3 mandeep urine. Patient tolerated well. 15 Fr dh3 16:02 14:29 BP 179 / 83; Pulse 91bpm; Resp 16bpm; Pulse Ox 95%; sv sv
--- NOTE | 2019-12-10 12:42 | EDPHYS ---
Physician Documentation [facility] Name: Debra Sarkar Age: 84 yrs Sex: Female : 1935 Arrival Date: 12/10/2019 Time: 09:05 Bed 8 Private MD: ED Physician Sidney Elliott HPI: 12/10 09:12 This 84 yrs old Female presents to ER via EMS with complaints of jmm Nausea/Vomiting. 09:12 The patient presents to the emergency department with nausea, vomiting, abdominal pain. jmm Onset: The symptoms/episode began/occurred acutely, this morning. Possible causes: unknown. The symptoms are aggravated by nothing. The symptoms are alleviated by nothing. Associated signs and symptoms: Pertinent positives: abdominal pain. This is an 84year old female with a history of dm, htn that presents to the ED with complaints of nausea, vomiting which began earlier this morning. Family states the patient has had multiple similar episodes. Denies diarrhea. . Historical: - Allergies: 09:08 Levaquin; hb 09:08 Lisinopril; hb 09:08 metformin; hb 09:08 Demerol; hb - PMHx: 09:08 Atrial Fib; Diabetes - IDDM; lymphedema; Hypertension; hb - PSHx: 09:08 Cholecystectomy; Hysterectomy; hb - Immunization history:: Adult Immunizations up to date. - Coronavirus screen:: The patient has NOT traveled to [place] in the past 14 days. The patient has NOT had contact with known/suspected case of Coronavirus? Proceed with normal triage procedures. - Social history:: Smoking status: Patient denies any tobacco usage or history of. - Ebola Screening: : No symptoms or risks identified at this time. ROS: 09:12 Constitutional: Negative for fever, chills, and weight loss, Cardiovascular: Negative jmm for chest pain, palpitations, and edema, Respiratory: Negative for shortness of breath, cough, wheezing, and pleuritic chest pain. 09:12 Abdomen/GI: Positive for nausea and vomiting, vomiting. 09:12 Back: Positive for pain with movement. 09:12 All other systems are negative. Exam: 09:12 Constitutional: This is a well developed, well nourished patient who is awake, alert, jmm and in no acute distress. Head/Face: atraumatic. Eyes: EOMI, no conjunctival erythema appreciated ENT: Moist Mucus Membranes Neck: Trachea midline, Supple Chest/axilla: Normal chest wall appearance and motion. Cardiovascular: Regular rate and rhythm. No edema appreciated Respiratory: Normal respirations, no respiratory distress appreciated 09:12 Abdomen/GI: Inspection: abdomen appears normal, Bowel sounds: normal, Palpation: abdomen is soft and non-tender, in all quadrants. 09:12 Musculoskeletal/extremity: ROM: intact in all extremities. 09:12 Neuro: Orientation: is normal, Mentation: is normal, Memory: is normal. 09:12 Psych: Behavior/mood is pleasant, cooperative. Vital Signs: 09:06 BP 147 / 84; Pulse 94; Resp 16; Temp 98.3; Pulse Ox 98% ; Weight 80.74 kg; Height 5 ft. hb 1 in. (154.94 cm); Pain 0/10; 11:00 Pulse 90; Resp 16; Pulse Ox 99% ; sv 13:30 BP 189 / 86; Pulse 94; Resp 16; Pulse Ox 97% ; sv 14:29 BP 179 / 83; Pulse 91; Resp 16; Temp 98.2(O); Pulse Ox 95% ; sv 15:18 BP 176 / 76; Pulse 100; Resp 16; Pulse Ox 97% ; sv 16:02 BP 177 / 75; Pulse 100; Resp 16; Pulse Ox 95% ; sv 16:45 BP 179 / 77; Pulse 99; Resp 16; Pulse Ox 95% on R/A; sv 09:06 Body Mass Index 33.63 (80.74 kg, 154.94 cm) hb MDM: 10:14 Patient medically screened. holden 12:38 Data reviewed: vital signs, nurses notes. Counseling: I had a detailed discussion with craig the patient and/or guardian regarding: the historical points, exam findings, and any diagnostic results supporting the discharge/admit diagnosis, lab results, radiology results, the need for further work-up and treatment in the hospital. ED course: I discussed the patient with Dr. Mercado whom accepted admission. . 12/10 09:12 Order name: Basic Metabolic Panel; Complete Time: 09:57 sv 12/10 09:12 Order name: CBC with Diff; Complete Time: 10:17 sv 12/10 09:12 Order name: Creatinine for Radiology; Complete Time: 09:52 sv 12/10 09:12 Order name: Hepatic Function; Complete Time: 09:57 sv 12/10 09:12 Order name: Lipase; Complete Time: 09:57 sv 12/10 10:14 Order name: CBC Smear Scan; Complete Time: 10:17 EDIN 12/10 11:51 Order name: Urine Culture [facility] 12/10 12:31 Order name: Urine Dipstick--Ancillary (enter results); Complete Time: 13:31 eb 12/10 12:54 Order name: Basic Metabolic Panel [facility] 12/10 12:54 Order name: Basic Metabolic Panel [facility] 12/10 12:54 Order name: CBC with Automated Diff [facility] 12/10 12:54 Order name: CBC with Automated Diff [facility] 12/10 12:54 Order name: Lipase [facility] 12/10 12:54 Order name: Lipase [facility] 12/10 09:12 Order name: IV Saline Lock; Complete Time: 09:19 sv 12/10 09:12 Order name: Labs collected and sent; Complete Time: 09:19 sv 12/10 10:16 Order name: CT Abd/Pelvis - IV Contrast Only; Complete Time: 11:45 [facility] 12/10 11:47 Order name: Urine Dipstick-Ancillary (obtain specimen); Complete Time: 12:21 [facility] 12/10 11:51 Order name: Straight Cath; Complete Time: 12:21 [facility] 12/10 12:54 Order name: NPO; Complete Time: 13:29 [facility] 12/10 12:54 Order name: Liver (Hepatic) Function [facility] 12/10 12:54 Order name: Liver (Hepatic) Function EDMS Administered Medications: 09:17 Drug: Phenergan 12.5 mg Route: IVP; Infused Over: 2 mins; Site: left antecubital; sv 09:30 Follow up: Response: No adverse reaction sv 10:08 Drug: NS 0.9% 1000 ml Route: IV; Rate: 1 bolus; Site: left antecubital; dm5 12:00 Follow up: Response: No adverse reaction; IV Status: Completed infusion; IV Intake: sv 1000ml 10:53 Drug: Reglan 10 mg Route: IVP; Site: left antecubital; dm5 12:00 Follow up: Response: No adverse reaction sv 13:29 Drug: Promethazine 12.5 mg Route: IVP; Site: right forearm; sv 14:00 Follow up: Response: No adverse reaction; Nausea is decreased sv 13:29 Drug: NS 0.9% 1000 ml Route: IV; Rate: 100 ml/hr; Site: right forearm; sv 16:52 Follow up: Response: No adverse reaction; IV Status: Infusion continued upon admission sv 13:36 Drug: Zosyn 3.375 grams Route: IVPB; Infused Over: 60 mins; Site: right forearm; sv 14:35 Follow up: Response: No adverse reaction; IV Status: Completed infusion; IV Intake: sv 100ml 15:00 Drug: Reglan 10 mg Route: IVP; Infused Over: 1 hrs; Site: right forearm; sv 15:15 Follow up: Response: No adverse reaction sv Disposition: 17:02 Co-signature as Attending Physician, Sidney Elliott MD I agree with the assessment and kdr plan of care. Disposition: 12/10/19 12:39 Hospitalization ordered by Ugo Mercado for Inpatient Admission. Preliminary diagnosis are Dehydration, Intractable Vomiting. - Bed requested for Telemetry/MedSurg (Inpatient). - Status is Inpatient Admission. sv - Condition is Stable. - Problem is new. - Symptoms are unchanged. Signatures: Dispatcher [employer] EDMS Pily Townsend RN RN dmCarolina Hercules RN RN sv Rittger, Kevin, MD MD [facility] Natalio Quigley PA PA [facility] Elizabeth Henson, RN RN Oskar Pimentel 4 Corrections: (The following items were deleted from the chart) 15:54 12:39 Hospitalization Ordered by A Rogelio NAVARRETE for Inpatient Admission. Preliminary 4 diagnosis is Dehydration; Intractable Vomiting. Bed requested for Telemetry/MedSurg (Inpatient). Status is Inpatient Admission. Condition is Stable. Problem is new. Symptoms are unchanged. [facility] 16:52 15:54 12/10/2019 12:39 Hospitalization Ordered by A Rogelio NAVARRETE for Inpatient Admission. sv Preliminary diagnosis is Dehydration; Intractable Vomiting. Bed requested for Telemetry/MedSurg (Inpatient). Status is Inpatient Admission. Condition is Stable. Problem is new. Symptoms are unchanged. dh4
[2019-12-10] MEDS ORDERED: ACETAMINOPHEN 500 MG TAB PO PRN (12:48)
[2019-12-10] MEDS ORDERED: PIPER/TAZO/NS 3.375gm 3.375 GM/100 ML BAG ONE (12:57)
[2019-12-10] MEDS: NA CHLORIDE 0.9% 1,000 ML IV SCH (13:00)
[2019-12-10 13:23] LABS: Urine Blood NEGATIVE (NEG); Urine Glucose NEGATIVE (NEG); Urine Protein NEGATIVE (NEG); Urine Specific Gravity 1.015 (1.005-1.030); Urine pH 7.5 (5.0-7.0)
[2019-12-10] MEDS ORDERED: PIPER/TAZO/NS 3.375gm 3.375 GM/100 ML BAG IVPB ONE ×2 (14:00→18:00)
[2019-12-10] MEDS ORDERED: NA CHLORIDE 0.9% 100 ML IV ONE (14:56)
[2019-12-10] MEDS: INSULIN -REGULAR HUMAN 50 UNIT/0.5 ML ML SQ SCH ×2 (16:30→21:33)
[2019-12-10 17:06] VITALS: BMI 35.3
[2019-12-10] MEDS: ONDANSETRON 4 MG/2 ML VIAL IV PRN ×2 (17:12→21:34)
[2019-12-10] MEDS: PROMETHAZINE INJ 25 MG/ML AMP IV PRN ×2 (19:00→23:14)
[2019-12-11] MEDS: PIPER/TAZO/NS 3.375gm 3.375 GM/100 ML BAG IVPB SCH ×3 (00:53→17:56)
[2019-12-11] MEDS: ONDANSETRON 4 MG/2 ML VIAL IV PRN (02:05)
[2019-12-11] MEDS: PROMETHAZINE INJ 25 MG/ML AMP IV PRN (04:46)
[2019-12-11] MEDS: NA CHLORIDE 0.9% 1,000 ML IV SCH ×2 (05:51→08:29)
[2019-12-11 06:58] LABS: Basophils % 0.8 % (0-1.3); Hematocrit 44.1 % (36.0-45.0); Lymphocytes % 6.1 % (15.3-44.8); MPV 10.1 fL (7.6-11.3); RBC Red Blood Cell Count 5.04 M/uL (3.86-4.86)
[2019-12-11 06:59] LABS: Albumin 3.2 g/dL (3.4-5.0); Bilirubin Direct 0.3 mg/dL (0-0.2); Potassium 4.1 mmol/L (3.5-5.1)
[2019-12-11] MEDS: INSULIN -REGULAR HUMAN 50 UNIT/0.5 ML ML SQ SCH ×4 (08:28→21:00)
[2019-12-11] MEDS: CYCLOSPORINE EACH EYE SCH ×2 (09:00→21:00)
[2019-12-11] MEDS: PROPAFENONE PO SCH ×2 (09:00→21:00)
[2019-12-11] MEDS: POLYETHYLENE GLYCOL PO SCH ×2 (09:00→21:00)
[2019-12-11] MEDS ORDERED: HOME MED 1 EA UNK (Hydralazine Hcl [Apresoline] 25 MG) PO SCH (09:00)
[2019-12-11] MEDS: CALCITONIN NASAL SPRAY 200 IU/DOSE NAS SCH ×2 (09:00→12:25)
[2019-12-11] MEDS ORDERED: NA CHLORIDE 0.9% 1,000 ML IV SCH (10:00)
[2019-12-11] MEDS: LIDOCAINE 4% PATCH TOP SCH (10:08)
[2019-12-11] MEDS: AMLODIPINE 10 MG TAB PO SCH (10:10)
[2019-12-11] MEDS: GABAPENTIN 100 MG CAP PO SCH ×3 (10:10→21:11)
[2019-12-11] MEDS: SENOSIDES 8.6 MG TAB PO SCH ×2 (10:10→21:10)
[2019-12-11] MEDS: MORPHINE 2 MG/ML SYR IV PRN (10:15)
[2019-12-11] MEDS: ISOSORBIDE MONO SR 30 MG TAB PO SCH (10:51)
[2019-12-11] MEDS: cloNIDine HCL 0.1 MG TAB PO SCH ×3 (10:51→21:10)
[2019-12-11] MEDS: HYDRALAZINE HCL 25 MG TABLET PO SCH ×3 (10:51→21:10)
[2019-12-11 11:06] LABS: Platelet Estimate ADEQ; Urine White Blood Cell Casts OK
[2019-12-11 11:07] LABS: Anisocytosis 1+; Blood Morphology Comment NOTED (NOT SEEN)
[2019-12-11] MEDS ORDERED: CALCITONIN NASAL SPRAY 200 IU/DOSE NAS SCH (12:00)
[2019-12-11 15:21] LABS: Absolute Lymphocytes (CBC) 1.1 K/uL (0.7-4.9); Basophils % 0.3 % (0-1.3); Hematocrit 38.9 % (36.0-45.0); Lymphocytes % 10.7 % (15.3-44.8); MPV 8.8 fL (7.6-11.3); RBC Red Blood Cell Count 4.45 M/uL (3.86-4.86)
[2019-12-11 15:38] LABS: Potassium 3.4 mmol/L (3.5-5.1)
[2019-12-11] MEDS: NACHLORIDE 0.45% 1,000 ML IV SCH (16:57)
[2019-12-11] MEDS ORDERED: RIVAROXABAN 15 MG TABLET PO SCH (17:00)
[2019-12-11] MEDS ORDERED: POTASSIUM 25 MEQ EFFERV TAB PO ONE (18:26)
--- NOTE | 2019-12-11 18:56 | HP ---
Date of Admission: 12/11/2019 Chief Complaint: Back pain, nausea, vomiting. History Of Present Illness: This is an 84-year-old pleasant female patient who came into emergency room with intractable back pain and intractable nausea and vomiting. She could not keep anything down with this nausea, vomiting and was having excruciating back pain. This has caused significant limitation of her activities of daily life. She was brought into emergency room. After she was evaluated in the ER, she was admitted to the hospital. Workup done in emergency room, results reviewed and ER provider contacted me for the admission. This morning when I saw her, her son was present with her at bedside who did not report any other new information except as outlined here. Her last bowel movement was yesterday or day before yesterday before coming to the hospital. Denies any fever, chills. No blood in stool. Allergies: TO LISINOPRIL, LEVAQUIN, AND METFORMIN. Medications: List reviewed. Review of Systems: GI: As mentioned above. 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 All other systems reviewed and negative. Social History: Negative for smoking and alcohol use. Family History: Significant for coronary artery disease and diabetes. Past Surgical History: Cholecystectomy, hysterectomy, partial thyroidectomy in 2008. Past Medical History: Significant for hypertension, hyperlipidemia, type 2 diabetes mellitus, ulcerative colitis, leg edema, paroxysmal atrial fibrillation , hypothyroidism, chronic anticoagulation therapy, osteoarthritis at multiple sites and osteopenia. Physical Examination: Vital Signs: Temperature 99.9, pulse 106, respiratory rate 18, blood pressure 160/80, oxygen saturation 94%. Height 5 feet 1 inch, weight 186 pounds. General: The patient is awake, alert, recognizes me, follows simple commands and answer simple questions. Not in any respiratory distress. HEENT: Head atraumatic, normocephalic. Conjunctivae nonerythematous. Sclerae white. Mouth, no thrush or edema noted. Ears/Nose, no mass, lesion, discharge noted. Neck: Supple. No JVD, lymph nodes, bruit, thyromegaly noted. Lungs: Bilateral good equal air entry. Clear to auscultation. No rhonchi. No rales. Heart: Normal heart sounds, no murmur or gallop. Abdomen: The patient has mild diffuse tenderness scattered all over abdomen. No rebound tenderness. No distention. Bowel sounds normoactive. No hepatosplenomegaly or bruit. Extremities: No leg edema. No calf tenderness. Skin: No rash, ulcer, cellulitis. Lymphatics: No lymph node enlargement in neck, supraclavicular, infraclavicular region. Neuro: No focal neurological deficit. Chest: Unremarkable. External Genitalia: Deferred. Rectal: Deferred. Laboratory Data: White count yesterday 13.3, hemoglobin 16.2, platelets 459. This morning, white count 16.3, hemoglobin 14.2, platelets 379. Yesterday, sodium 142, potassium 4, chloride 103, bicarb 26, BUN 19, creatinine 1.48, glucose 215, total bilirubin 1.2, direct bilirubin 0.3, SGOT 14, SGPT 15, alkaline phosphatase 149, lipase 77. This morning, sodium 147, potassium 4.1, chloride 112, bicarb 20, BUN 30, creatinine 1.53, glucose 299, total bilirubin 1 , direct bilirubin 0.3. SGOT 17, SGPT 13, alkaline phosphatase 124, lipase 54. Urinalysis 1+ ketones, otherwise negative. CAT scan of the abdomen with contrast done in emergency room shows acute/subacute mild compression fracture of L3 vertebral body, estimated to be 15%. No other acute intraabdominal changes noted. Impression: 1. Compression fracture, L3, acute. 2. Acute kidney injury. 3. Volume depletion. 4. Ulcerative colitis, with acute exacerbation. 5. Hypertension. 6. Hyperlipidemia. 7. Type 2 diabetes mellitus. 8. Paroxysmal atrial fibrillation. 9. Osteoarthritis, multiple sites. 10. Osteoporosis. Plan: Admit patient to hospital for further evaluation and management of this problem. Patient is appropriate for inpatient and is expected to spend 2 midnights in hospital. Home medications will be continued per order. We will manage diabetes with sliding scale insulin. IV fluid will be given, but we will change IV fluid per order and will monitor electrolytes, renal function, and blood count on a daily basis until we see improvement or stabilization. Her previous creatinine was 0.78, that was her last creatinine at this time it is in the 1.5 range, so that has doubled up compared to her baseline. We will start her on clear liquid diet. Pain medication was ordered for morphine. Lidocaine patch was ordered and we will give it as per order. We will also start her on calcitonin nasal spray per order to see if that provides her some pain relief with this acute compression fracture of spine. Starting tomorrow, we will probably consider physical therapy to help assist the patient. She uses Xarelto 20 mg at home. Considering her acute kidney injury and elevated creatinine, we will start Xarelto, but at a lower dose 15 mg daily starting today. SCD was ordered for DVT prophylaxis. Her low-grade fever, elevated white count is likely due to her exacerbation from ulcerative colitis and we have to consider some bacterial infection like her colitis and she is on IV Zosyn. We will continue that. Her volume depletion will be addressed with IV fluid hydration. Bicarb has gone down today compared to yesterday. We will monitor that. Yesterday, she did get IV contrast in emergency room with a CAT scan and that could potentially contribute to her renal function abnormality that we are seeing today, but obviously IV fluid hydration will be continued and we will monitor that closely. I have discussed details with patient's son and the patient as well. Kyphoplasty type of procedure should be considered at appropriate time and that is earlier if pain control becomes a problem and it should be considered at some later point if it is necessary and if the pain does not improve adequately. All those details were discussed with the patient and family. We also talked about advance directives and DNR order was written in the chart as per my discussion with the patient's son. BOLIVAR/MODL Voice ID: [id number] RANDA
[2019-12-11] MEDS: CYCLOBENZAPRINE 10 MG TAB PO SCH (21:10)
[2019-12-12] MEDS: PIPER/TAZO/NS 3.375gm 3.375 GM/100 ML BAG IVPB SCH ×3 (00:06→16:58)
[2019-12-12] MEDS: NACHLORIDE 0.45% 1,000 ML IV SCH (03:19)
[2019-12-12] MEDS: LEVOTHYROXINE SOD 0.112 MG TAB PO SCH (05:33)
[2019-12-12] MEDS ORDERED: LEVOTHYROXINE SOD 0.1 MG TAB PO SCH (06:00)
[2019-12-12 06:35] LABS: Basophils % 1.1 % (0-1.3); Hematocrit 35.2 % (36.0-45.0); Lymphocytes % 26.7 % (15.3-44.8); MPV 9.4 fL (7.6-11.3); RBC Red Blood Cell Count 3.97 M/uL (3.86-4.86)
[2019-12-12 07:06] LABS: Magnesium 1.9 mg/dL (1.8-2.4); Potassium 4.1 mmol/L (3.5-5.1)
[2019-12-12] MEDS ORDERED: CALCITONIN NASAL SPRAY 200 IU/DOSE NAS SCH (09:00)
[2019-12-12] MEDS: POLYETHYLENE GLYCOL PO SCH ×2 (09:00→21:00)
[2019-12-12] MEDS: PROPAFENONE PO SCH (09:00)
[2019-12-12] MEDS: CYCLOSPORINE EACH EYE SCH ×2 (09:00→21:00)
[2019-12-12] MEDS: INSULIN -REGULAR HUMAN 50 UNIT/0.5 ML ML SQ SCH ×4 (09:15→21:00)
[2019-12-12] MEDS: LIDOCAINE 4% PATCH TOP SCH (09:22)
[2019-12-12] MEDS: CALCITONIN NASAL SPRAY 200 IU/DOSE NAS SCH (09:22)
[2019-12-12] MEDS: SENOSIDES 8.6 MG TAB PO SCH ×2 (09:22→21:57)
[2019-12-12] MEDS: GABAPENTIN 100 MG CAP PO SCH ×3 (09:23→21:55)
[2019-12-12] MEDS: cloNIDine HCL 0.1 MG TAB PO SCH ×3 (09:23→21:57)
[2019-12-12] MEDS: ISOSORBIDE MONO SR 30 MG TAB PO SCH (09:23)
[2019-12-12] MEDS: HYDRALAZINE HCL 25 MG TABLET PO SCH ×3 (09:23→21:57)
[2019-12-12] MEDS: AMLODIPINE 10 MG TAB PO SCH (09:23)
[2019-12-12] MEDS: CODEINE 30MG/APAP 300MG TAB PO PRN ×2 (09:51→15:07)
--- NOTE | 2019-12-12 10:54 | PN ---
Date of Progress Note: 12/12/2019 Subjective: Patient was seen this morning for followup. She was lying in bed. Her daughter was with her at bedside. She is awake, alert, back to her normal usual self, and confusion that she had when I saw her yesterday has resolved. She is tolerating diet very well. No nausea, vomiting. She had one very small bowel movement since I saw her yesterday. Denies any abdominal pain. Objective: Vital Signs: Reviewed. HEENT: Unremarkable. Lungs: Clear to auscultation. Heart: Sounds normal. Abdomen: Soft. Bowel sounds normal. No guarding, rigidity, tenderness, or distention. Extremities: No leg edema. Laboratory Data: White count 7.5, hemoglobin 11.6, platelets 252. Sodium 144, potassium 4.1, chloride 109, bicarb 28, BUN 17, creatinine 1.06, glucose 228, magnesium 1.9. Impression: 1. Volume depletion. 2. Ulcerative colitis. 3. Compression fracture L3 spine. 4. Anemia. 5. Paroxysmal atrial fibrillation. 6. Chronic anticoagulation therapy. 7. Diabetes mellitus. Plan: We will go ahead and continue anticoagulation therapy with Xarelto and considering volume depletion problem has improved now. We will resume her usual dose of 20 mg daily instead of 15 mg dose which was given yesterday. Continue current antibiotic. She is tolerating diet very well. We will discontinue IV fluid and continue current pain medication including nasal spray calcitonin. Physical therapy to help ambulate the patient and we will order MRI of lumbar spine to be done tomorrow. Patient was originally planning to go to [facility] in [place] as it was arranged by her daughter and she was scheduled to go the day before yesterday, but meanwhile she ends up in the hospital. So, tomorrow we will request Social Service consultation to assist patient to go to that facility upon discharge from our hospital and possible discharge either tomorrow or day after tomorrow. The patient recently had 1 week-long Holter monitor done by Dr. Osei and he noted about 4 second pause, so he has recommended for her to go see Dr. Rangel in [place] for consideration of pacemaker placement. Patient had appointment this week, but because she got sick this appointment was canceled and daughter will reschedule that appointment, so when I have informed the patient and the patient's daughter that upon discharge from the hospital, she should follow up with Dr. Rangel and if she needs a pacemaker, then that she would be placed and after the pacemaker gets placed, then consideration should be given for any kyphoplasty type of procedure if it becomes necessary. BOLIVAR/FAUSTINA Voice ID: [id number] Report ID: [id number] MTDD
[2019-12-12] MEDS: RIVAROXABAN 20 MG TABLET PO SCH (16:57)
[2019-12-12] MEDS: CYCLOBENZAPRINE 10 MG TAB PO SCH (21:55)
[2019-12-12] MEDS: PROPAFENONE 225 MG PO SCH (21:55)
[2019-12-13] MEDS: PIPER/TAZO/NS 3.375gm 3.375 GM/100 ML BAG IVPB SCH ×3 (00:18→16:18)
[2019-12-13] MEDS: LEVOTHYROXINE SOD 0.112 MG TAB PO SCH (05:00)
[2019-12-13] MEDS: CODEINE 30MG/APAP 300MG TAB PO PRN ×3 (05:00→20:46)
[2019-12-13] MEDS: INSULIN -REGULAR HUMAN 50 UNIT/0.5 ML ML SQ SCH ×4 (08:44→20:48)
[2019-12-13] MEDS: cloNIDine HCL 0.1 MG TAB PO SCH ×3 (08:46→20:43)
[2019-12-13] MEDS: LIDOCAINE 4% PATCH TOP SCH (08:46)
[2019-12-13] MEDS: ISOSORBIDE MONO SR 30 MG TAB PO SCH (08:47)
[2019-12-13] MEDS: GABAPENTIN 100 MG CAP PO SCH ×3 (08:47→20:47)
[2019-12-13] MEDS: AMLODIPINE 10 MG TAB PO SCH (08:48)
[2019-12-13] MEDS: CALCITONIN NASAL SPRAY 200 IU/DOSE NAS SCH (08:48)
[2019-12-13] MEDS: SENOSIDES 8.6 MG TAB PO SCH ×2 (08:48→20:44)
[2019-12-13] MEDS: HYDRALAZINE HCL 25 MG TABLET PO SCH ×3 (08:48→20:44)
[2019-12-13] MEDS: POLYETHYLENE GLYCOL PO SCH ×2 (08:49→21:00)
[2019-12-13] MEDS: CYCLOSPORINE EACH EYE SCH ×2 (08:49→20:48)
[2019-12-13] MEDS: PROPAFENONE 225 MG PO SCH ×2 (08:53→20:47)
--- NOTE | 2019-12-13 10:37 | RAD REPORT ---
EXAM DESCRIPTION: MRI - Lumbar Spine Wo Con- 12/13/2019 10:07 am CLINICAL HISTORY: L3 compression fracture COMPARISON: Abdomen Pelvis W Contrast dated 12/10/2019; Thoracolumbar Spine Ap Lat dated 11/24/2019 FINDINGS: Central compression fracture is seen involving the L3 vertebral body. Loss of vertebral ruthy dy height is estimated at 15-20% The L3 vertebral body demonstrates elevated STIR signal indicating the fracture is acute to subacute in timeframe. Mild edema is also noted involving the anterior inferior endplate of L2. The conus medullaris terminates at a normal level. No thickening of the cauda equina or clumping of n erve roots seen. L1-2 level: No significant findings. L2-3 level: Mild facet and ligamentum flavum hypertrophy. Mild central canal narrowing related to L3 vertebral body fracture. Exit foraminal narrowing is not present. L3-4 level: Mild posterior disc bulge moderate facet and ligamentum flavum hypertrophy. Mild central canal narrowing is present. Mild narrowing the right exit foramen. L4-5 level: 5 mm degenerative anterolisthesis of L4 on L5 is seen. Broad-based posterior disc bulge i s noted asymmetric to the left. Moderate facet and ligamentum flavum hypertrophy results moderate nayely tral canal narrowing. Moderate right-sided exit foraminal stenosis. L5-S1 level: Mild to moderate facet hypertrophy is present, greater on the left. Mild left lateral re cess narrowing is present. IMPRESSION: Acute to subacute time frame L3 central compression fracture is present with estimated v ertebral body height loss of 15-20%. The findings result in mild central canal narrowing due to poste rior vertebral body cortex buckling. No significant canal compromise seen. No additional acute compression fracture seen. Multilevel degenerative changes are noted with 5 mm de generative anterolisthesis of L4 on 5 seen.
[2019-12-13] MEDS: MORPHINE 2 MG/ML SYR IV PRN (11:26)
[2019-12-13] MEDS: RIVAROXABAN 20 MG TABLET PO SCH (17:44)
[2019-12-13] MEDS: CYCLOBENZAPRINE 10 MG TAB PO SCH (20:44)
[2019-12-14] MEDS: MORPHINE 2 MG/ML SYR IV PRN ×2 (00:36→15:29)
[2019-12-14] MEDS: PIPER/TAZO/NS 3.375gm 3.375 GM/100 ML BAG IVPB SCH ×2 (00:50→07:55)
--- NOTE | 2019-12-14 00:55 | PN ---
Date of Progress Note: 12/13/2019 Subjective: Patient was seen this morning for followup. No new complaints or problems reported by dano rasmussen. Denies any abdominal pain, nausea, vomiting. Had bowel movement yesterday. Appetite is liv r. Continues to have back pain. Objective: Vital Signs: Reviewed. HEENT: Unremarkable. Lungs: Clear to auscultation. Heart: Heart sounds normal. Abdomen: Soft, bowel sounds normal. No guarding, rigidity, tenderness, or distention. Extremities: No leg edema. Laboratory Data: No new labs today. Impression: 1.Compression fracture, L3 spine. 2.Osteoporosis. 3.Diabetes mellitus. 4.Chronic constipation. 5.Volume depletion, resolved. Plan: We will go ahead and continue current diet. Continue current antibiotics, calcitonin nasal sp ray . Patient will have an MRI done today of lumbar spine. Social service to assist her w ith discharge planning and to go [facility] and hopefully we can discharge her tomorrow to go there. Prescription was written for her for Tylenol No. 3 one tablet every 6 hours as needed for pain 30 tablets, no refill for her to use this upon discharge from the hospital. BOLIVAR/MODL Voice ID: [id number] Report ID: [id number]
[2019-12-14] MEDS: LEVOTHYROXINE SOD 0.112 MG TAB PO SCH (05:53)
[2019-12-14] MEDS: INSULIN -REGULAR HUMAN 50 UNIT/0.5 ML ML SQ SCH ×2 (07:55→12:01)
[2019-12-14] MEDS: PROPAFENONE 225 MG PO SCH (07:56)
[2019-12-14] MEDS: cloNIDine HCL 0.1 MG TAB PO SCH ×2 (07:57→13:06)
[2019-12-14] MEDS: CYCLOSPORINE EACH EYE SCH (07:58)
[2019-12-14] MEDS: ISOSORBIDE MONO SR 30 MG TAB PO SCH (07:58)
[2019-12-14] MEDS: HYDRALAZINE HCL 25 MG TABLET PO SCH ×2 (07:58→13:06)
[2019-12-14] MEDS: GABAPENTIN 100 MG CAP PO SCH ×2 (07:58→13:06)
[2019-12-14] MEDS: LIDOCAINE 4% PATCH TOP SCH (07:58)
[2019-12-14] MEDS: CALCITONIN NASAL SPRAY 200 IU/DOSE NAS SCH (07:59)
[2019-12-14] MEDS: AMLODIPINE 10 MG TAB PO SCH (08:00)
[2019-12-14] MEDS: SENOSIDES 8.6 MG TAB PO SCH (08:00)
[2019-12-14] MEDS: POLYETHYLENE GLYCOL PO SCH (08:01)
[2019-12-14 08:08] VITALS: O2SAT 95
[2019-12-14] MEDS ORDERED: POLYETHYL GLY 3350 17 GM/DOSE PO SCH (09:00)
[2019-12-14 13:07] VITALS: BP 136/65; TEMP 97.1
--- NOTE | 2019-12-14 22:47 | DS ---
Date of Discharge: 12/14/2019 Disposition: Discharged to go to [facility] in [place]. Physical Examination: HEENT: Unremarkable. Lungs: Clear to auscultation. Heart: Sounds normal. Abdomen: Soft. Bowel sounds normal. No guarding, rigidity, tenderness, or distention. Extremities: No leg edema. Laboratory Data: Upon admission, white count 13.3, hemoglobin 16.2, platelets 459. This was on 11/21. Her white count went up to 16.3, hemoglobin 14.2, platelets 379. On 12/12/2019, white count 7.5, hem oglobin 11.6, platelets 253. Upon admission, BUN 19, creatinine 1.48, sodium 142, potassium 4, chlor rossy 103, bicarb 26, glucose 215. Day after admission, creatinine went up to 1.53. Sodium 147. On 0 12/12/2019, sodium 144, potassium 4.1, chloride 109, bicarb 28, BUN 17, creatinine 1.06, glucose 220, magnesium 1.9. Hospital Course: This 84-year-old pleasant female patient, admitted to the hospital with back pain, nausea, vomiting. Please see dictated H and P for more information. After patient was evaluated in the ER, she was admitted to the hospital. Patient was noted to have compression fracture of L3 spine and she had significant pain in her back. She also had acute kidney injury with volume depletion. Her white count was elevated, which was thought to be due to acute exacerbation of her underlying ulc erative colitis. She was given IV fluid, IV antibiotics, and IV pain medication. Calcitonin nasal s pray was started. She has a history of osteopenia, but now with this L3 compression fracture, she is considered to have osteoporosis. Physical therapy was consulted. Patient's abdominal pain got bett er. She started tolerating diet very well. Volume depletion problem got corrected with IV fluid hyd ration. Hemoglobin dropped, but not because of GI bleeding problem but rather due to IV fluid hydrat ion and she is back to her baseline hemoglobin. Initial hemoglobin was falsely elevated because of d ehydration. Patient's daughter has informed me that recently she had 1 week long Holter monitor and Dr. Osei recommended her to go see Dr. Rangel for consideration of pacemaker placement as she was fountain ving 4-second pauses. So, what I have advised patient and daughter that she should follow up with Dr Melvin Rangel and let him go ahead and place the pacemaker as plan. After the pacemaker gets placed, then she should consider any intervention like kyphoplasty if it is necessary and that will depend on how her back pain is. If she improves, then she may not need such procedure with kyphoplasty if the back pain improves. Social Service was consulted to assist her with placement and DNR order was written in the chart as per patient's decision. Final Diagnoses: 1.Compression fracture of L3 spine. 2.Acute kidney injury. 3.Volume depletion. 4.Anemia, unspecified. 5.Ulcerative colitis with acute exacerbation. 6.Hypertension. 7.Type 2 diabetes mellitus. 8.Hyperlipidemia. 9.Paroxysmal atrial fibrillation. 10.Osteoarthritis, multiple sites. 11.Osteoporosis. Discharge Medications And Instructions: 1.Continue all prior home medication except stop Victoza, stop furosemide, and stop spironolactone. 2.Fingerstick blood sugar before meals and at bedtime with mild sliding scale. 3.Calcitonin nasal spray 1 spray in 1 nostril daily and patient to use alternate nostril on a daily basis. 4.Consult Physical Therapy, Occupational Therapy. 5.Follow up with Dr. Rangel for pacemaker placement. BOLIVAR/MODL Voice ID: [id number] Report ID: [id number]
== END 2019-12-14 16:26 | DRG 552 ==
LOC: ER 09:03 → ERHOLD 12:47 → 4TH 16:45
PROVIDERS: ADMIT Internal Medicine; ATTEND Internal Medicine
DX: S32.039A Unspecified fracture of third lumbar vertebra, initial encounter for closed fracture (principal); N17.9 Acute kidney failure, unspecified; K51.90 Ulcerative colitis, unspecified, without complications; E11.9 Type 2 diabetes mellitus without complications; K59.09 Other constipation; E86.9 Volume depletion, unspecified; D64.9 Anemia, unspecified; I10 Essential (primary) hypertension; E78.5 Hyperlipidemia, unspecified; I48.0 Paroxysmal atrial fibrillation; M19.90 Unspecified osteoarthritis, unspecified site; Z66 Do not resuscitate
CPT/HCPCS: 36415; 51702; 72148; 74177; 80048; 80076; 81003; 82947; 83690; 83735; 84132; 85025; 87086; 87088; 96361; 96365; 96375; 99285; J2270; J2405; J2543; J2550; J2765; J7030; Q9967

== ENCOUNTER 2020-03-15 15:28 | Emergency (ER) | payer OTHER ==
--- OUTSIDE RECORDS SUMMARY | 2020-03-15 16:16 | XMS REPORT ---
:1935 [address] [facility] t Address [address] [place] [address] Dr[address] [address] Care Team Providers Name Role Phone Unavailable Unavailable Unavailable Problems This patient has no known problems. Allergies, Adverse Reactions, Alerts This patient has no known allergies or adverse reactions. Medications This patient has no known medications. Procedures This patient has no known procedures. Results This patient has no known results.
[2020-03-15] MEDS ORDERED: CYCLOBENZAPRINE 10 MG TAB ONE (16:20)
[2020-03-15] MEDS ORDERED: IBUPROFEN 200 MG TAB PO ONE (16:20)
[2020-03-15] MEDS ORDERED: IBUPROFEN 400 MG TAB ONE (16:21)
[2020-03-15 18:44] VITALS: TEMP 97.8
[2020-03-15 18:46] VITALS: BP 150/74; O2SAT 95
--- NOTE | 2020-03-20 14:37 | ER ---
Nurse's Notes [facility] Name: Debra Sarkar Age: 84 yrs Sex: Female : 1935 Arrival Date: 03/15/2020 Time: 15:32 Bed 2 Private MD: Diagnosis: Muscle strain: Low back and pelvis Presentation: 03/15 15:32 Chief complaint: EMS states: Right hip pain after fall from standing 1 week ago. Unable hb to ambulate with walker due to pain. Coronavirus screen: Proceed with normal triage. Ebola Screen: No symptoms or risks identified at this time. Initial Sepsis Screen: Does the patient meet any 2 criteria? No. Patient's initial sepsis screen is negative. Does the patient have a suspected source of infection? No. Patient's initial sepsis screen is negative. Risk Assessment: Do you want to hurt yourself or someone else? Patient reports no desire to harm self or others. Onset of symptoms was March 15, 2020. 15:32 Method Of Arrival: EMS: [facility] hb 15:32 Acuity: LEX 3 hb Historical: - Allergies: 15:34 Demerol; hb 15:34 Levaquin; hb 15:34 Lisinopril; hb 15:34 metformin; hb - Home Meds: 15:34 amlodipine 10 mg tab 1 tab once daily [Active]; clonidine HCl 0.3 mg Oral tab 1 tab hb every 8 hours [Active]; furosemide 40 mg Oral tab 1 tab once daily [Active]; gabapentin 100 mg Oral cap 3 times per day [Active]; hydralazine 25 mg Oral tab [Active]; isosorbide mononitrate 30 mg Oral Tb24 1 tab once daily [Active]; Lantus Sub-Q 45 units daily [Active]; Levemir 100 unit/mL subcutaneous soln 35 35 UNITS [Active]; levothyroxine 112 mcg tab [Active]; Miralax Oral 1 packet once daily [Active]; Novolog Sliding scale Sub-Q three times a day [Active]; propafenone 225 mg Oral Tb24 1 cap every 12 hours [Active]; Restasis 0.05 % ophthalmic dpet 1 drop 2 times per day [Active]; Senokot S Oral as needed [Active]; spironolactone 25 mg Oral tab 1 tab once daily [Active]; Xarelto 20 mg Oral tab 1 tab once daily [Active]; - PMHx: 15:34 Diabetes - IDDM; Hypertension; lymphedema; Atrial Fib; hb - PSHx: 15:34 Cholecystectomy; Hysterectomy; hb - Immunization history:: Adult Immunizations up to date. - Social history:: Smoking status: Patient denies any tobacco usage or history of. Screenin:35 Abuse screen: Denies threats or abuse. Denies injuries from another. Nutritional hb screening: No deficits noted. Tuberculosis screening: No symptoms or risk factors identified. Fall Risk Total Kim Fall Scale indicates Low Risk Score (25-44 pts). Fall prevention measures have been instituted. Side Rails Up X 2 Frequent Obs/Assesments occuring As available Patient and Family Educated on Fall Prevention Program and strategies. Assessment: 15:45 General: Appears in no apparent distress. uncomfortable, Behavior is calm, cooperative, jl7 appropriate for age. Pain: Complains of pain in bilateral hips Pain currently is 0 out of 10 on a pain scale. at worst was 10 out of 10 on a pain scale. Neuro: Level of Consciousness is awake, alert, obeys commands, Oriented to person, place, time, situation. Cardiovascular: Patient's skin is warm and dry. Respiratory: Airway is patent Respiratory effort is even, unlabored, Respiratory pattern is regular, symmetrical. Derm: Skin is pink, warm \\T\\ dry. Musculoskeletal: Swelling absent Tenderness present in bilateral hips. 16:45 Reassessment: Patient appears in no apparent distress at this time. No changes from jl7 previously documented assessment. Patient and/or family updated on plan of care and expected duration. Pain level reassessed. Patient is alert, oriented x 3, equal unlabored respirations, skin warm/dry/pink. 17:45 Reassessment: Patient appears in no apparent distress at this time. No changes from jl7 previously documented assessment. Patient and/or family updated on plan of care and expected duration. Pain level reassessed. Patient is alert, oriented x 3, equal unlabored respirations, skin warm/dry/pink. 18:03 Reassessment: Spoke to Nurse Zulma at [facility] about discharge. Pat reports [place] [address] does not transport pts back, to call her daughter. Pt states "I'll call my son, I think I can get in his car better.". Vital Signs: 15:32 BP 159 / 62; Pulse 80; Resp 16; Temp 97.8; Pulse Ox 98% on R/A; Weight 77.11 kg; Height hb 5 ft. 2 in. (157.48 cm); Pain 9/10; 16:40 BP 164 / 77; Pulse 70; Resp 18; Pulse Ox 96% ; sv 17:45 BP 150 / 74; Pulse 67; Resp 16; Pulse Ox 95% ; jl7 15:32 Body Mass Index 31.09 (77.11 kg, 157.48 cm) hb ED Course: 15:32 Patient arrived in ED. hb 15:32 Sidney Elliott MD is Attending Physician. kdr 15:33 Triage completed. hb 15:34 Arm band placed on. hb 15:34 Patient has correct armband on for positive identification. Bed in low position. Call jl7 light in reach. Side rails up X2. Pulse ox on. NIBP on. 15:55 Seb Benavides RN is Primary Nurse. jl7 18:36 No provider procedures requiring assistance completed. Patient did not have IV access jl7 during this emergency room visit. Administered Medications: 16:15 Drug: Flexeril 10 mg Route: PO; jl7 17:15 Follow up: Response: No adverse reaction jl7 16:15 Drug: Ibuprofen 600 mg Route: PO; jl7 17:15 Follow up: Response: No adverse reaction jl7 Outcome: 17:47 Discharge ordered by . kdr 18:36 Discharged to home via wheelchair, with family. jl7 18:36 Condition: stable 18:36 Discharge instructions given to patient, Instructed on discharge instructions, follow up and referral plans. medication usage, Demonstrated understanding of instructions, follow-up care, medications, Prescriptions given X 2. 18:36 Patient left the ED. jl7 Signatures: Carolina Prado RN MENG Sidney Elliott MD MD kdr Elizabeth Henson RN RN Seb Benavides RN RN jl7
--- NOTE | 2020-03-20 14:37 | EDPHYS ---
Physician Documentation [facility] Name: Debra Sarkar Age: 84 yrs Sex: Female : 1935 Arrival Date: 03/15/2020 Time: 15:32 Bed 2 Private MD: ED Physician Sidnye Elliott HPI: 03/16 09:34 This 84 yrs old Female presents to ER via EMS with complaints of Hip Pain. kdr 09:34 The patient or guardian reports pain. that occurred at home, sustained from a fall, kdr There is no obvious deformity, The patient is able to ambulate with assistance. The patient is able to bear partial body weight. The patient's discomfort radiates to the radiate laterally across her left illiac crest. The complaints affect the right low back. Onset: The symptoms/episode began/occurred 1 week(s) ago. Modifying factors: The symptoms are alleviated by remaining still, the symptoms are aggravated by weight bearing. Associated signs and symptoms: Loss of consciousness: the patient experienced no loss of consciousness, Pertinent negatives: None. Severity of symptoms: At their worst the symptoms were mild, in the emergency department the symptoms have improved, moderately. The patient has not experienced similar symptoms in the past. The patient has not recently seen a physician. Historical: - Allergies: 03/15 15:34 Demerol; hb 15:34 Levaquin; hb 15:34 Lisinopril; hb 15:34 metformin; hb - Home Meds: 15:34 amlodipine 10 mg tab 1 tab once daily [Active]; clonidine HCl 0.3 mg Oral tab 1 tab hb every 8 hours [Active]; furosemide 40 mg Oral tab 1 tab once daily [Active]; gabapentin 100 mg Oral cap 3 times per day [Active]; hydralazine 25 mg Oral tab [Active]; isosorbide mononitrate 30 mg Oral Tb24 1 tab once daily [Active]; Lantus Sub-Q 45 units daily [Active]; Levemir 100 unit/mL subcutaneous soln 35 35 UNITS [Active]; levothyroxine 112 mcg tab [Active]; Miralax Oral 1 packet once daily [Active]; Novolog Sliding scale Sub-Q three times a day [Active]; propafenone 225 mg Oral Tb24 1 cap every 12 hours [Active]; Restasis 0.05 % ophthalmic dpet 1 drop 2 times per day [Active]; Senokot S Oral as needed [Active]; spironolactone 25 mg Oral tab 1 tab once daily [Active]; Xarelto 20 mg Oral tab 1 tab once daily [Active]; - PMHx: 15:34 Diabetes - IDDM; Hypertension; lymphedema; Atrial Fib; hb - PSHx: 15:34 Cholecystectomy; Hysterectomy; hb - Immunization history:: Adult Immunizations up to date. - Social history:: Smoking status: Patient denies any tobacco usage or history of. ROS: 03/16 09:34 Constitutional: Negative for fever, chills, and weight loss, Eyes: Negative for injury, kdr pain, redness, and discharge, Neck: Negative for injury, pain, and swelling, Cardiovascular: Negative for chest pain, palpitations, and edema, Respiratory: Negative for shortness of breath, cough, wheezing, and pleuritic chest pain, Abdomen/GI: Negative for abdominal pain, nausea, vomiting, diarrhea, and constipation, Skin: Negative for injury, rash, and discoloration, Neuro: Negative for headache, weakness, numbness, tingling, and seizure activity. Psych: Negative for depression, anxiety, suicide ideation, homicidal ideation, and hallucinations, Allergy/Immunology: Negative for hives, rash, and allergies, Endocrine: Negative for neck swelling, polydipsia, polyuria, polyphagia, and marked weight changes, Hematologic/Lymphatic: Negative for swollen nodes, abnormal bleeding, and unusual bruising. Back: Positive for pain at rest, of the right low back. Exam: 09:34 Constitutional: This is a well developed, well nourished patient who is awake, alert, kdr and in no acute distress. Head/Face: Normocephalic, atraumatic. Eyes: Pupils equal round and reactive to light, extra-ocular motions intact. Lids and lashes normal. Conjunctiva and sclera are non-icteric and not injected. Cornea within normal limits. Periorbital areas with no swelling, redness, or edema. Neck: Trachea midline, no thyromegaly or masses palpated, and no cervical lymphadenopathy. Supple, full range of motion without nuchal rigidity, or vertebral point tenderness. No Meningismus. Chest/axilla: Normal chest wall appearance and motion. Nontender with no deformity. No lesions are appreciated. Cardiovascular: Regular rate and rhythm with a normal S1 and S2. No gallops, murmurs, or rubs. Normal PMI, no JVD. No pulse deficits. Respiratory: Lungs have equal breath sounds bilaterally, clear to auscultation and percussion. No rales, rhonchi or wheezes noted. No increased work of breathing, no retractions or nasal flaring. Abdomen/GI: Soft, non-tender, with normal bowel sounds. No distension or tympany. No guarding or rebound. No evidence of tenderness throughout. Skin: Warm, dry with normal turgor. Normal color with no rashes, no lesions, and no evidence of cellulitis. Neuro: Awake and alert, GCS 15, oriented to person, place, time, and situation. Cranial nerves II-XII grossly intact. Motor strength 5/5 in all extremities. Sensory grossly intact. Cerebellar exam normal. Normal gait. Psych: Awake, alert, with orientation to person, place and time. Behavior, mood, and affect are within normal limits. 09:34 Back: pain, that is mild, of the right low back. 09:34 Musculoskeletal/extremity: ROM: no acute changes, intact in all extremities, full active range of motion, in all extremities, full passive range of motion, in all extremities. Vital Signs: 03/15 15:32 BP 159 / 62; Pulse 80; Resp 16; Temp 97.8; Pulse Ox 98% on R/A; Weight 77.11 kg; Height hb 5 ft. 2 in. (157.48 cm); Pain 9/10; 16:40 BP 164 / 77; Pulse 70; Resp 18; Pulse Ox 96% ; sv 17:45 BP 150 / 74; Pulse 67; Resp 16; Pulse Ox 95% ; jl7 15:32 Body Mass Index 31.09 (77.11 kg, 157.48 cm) hb MDM: 17:47 Patient medically screened. kdr 03/16 09:34 Data reviewed: vital signs, nurses notes. Counseling: I had a detailed discussion with kdr the patient and/or guardian regarding: the historical points, exam findings, and any diagnostic results supporting the discharge/admit diagnosis, the need for outpatient follow up. Administered Medications: 03/15 16:15 Drug: Flexeril 10 mg Route: PO; jl7 17:15 Follow up: Response: No adverse reaction jl7 16:15 Drug: Ibuprofen 600 mg Route: PO; jl7 17:15 Follow up: Response: No adverse reaction jl7 Disposition: 03/15/20 17:47 Discharged to Home. Impression: Muscle strain: Low back and pelvis. - Condition is Stable. - Discharge Instructions: Back Pain, Adult, [id number], Muscle Strain, Poma-td-Celb. - Prescriptions for Ibuprofen 600 mg Oral Tablet - take 1 tablet by ORAL route every 6 hours As needed take with food; 15 tablet. Cyclobenzaprine 5 mg Oral Tablet - take 1 tablet by ORAL route 3 times per day As needed; 15 tablet. - Medication Reconciliation Form, Thank You Letter form. - Follow up: Private Physician; When: 2 - 3 days; Reason: If symptoms return, Further diagnostic work-up, Recheck today's complaints, Continuance of care, Re-evaluation by your physician. - Problem is an ongoing problem. - Symptoms have improved. Signatures: Sidney Elliott MD MD kdr Elizabeth Henson RN RN Seb Benavides RN RN jl7 Corrections: (The following items were deleted from the chart) 18:36 17:47 03/15/2020 17:47 Discharged to Home. Impression: Muscle strain: Low back and jl7 pelvis. Condition is Stable. Forms are Medication Reconciliation Form, Thank You Letter, Antibiotic Education, Prescription Opioid Use. Follow up: Private Physician; When: 2 - 3 days; Reason: If symptoms return, Further diagnostic work-up, Recheck today's complaints, Continuance of care, Re-evaluation by your physician. Problem is an ongoing problem. Symptoms have improved. kdr
== END 2020-03-15 18:36 | disposition home or self-care (01) ==
LOC: ER 15:28
DX: S39.012A Strain of muscle, fascia and tendon of lower back, initial encounter (principal); S39.013A Strain of muscle, fascia and tendon of pelvis, initial encounter; W19.XXXA Unspecified fall, initial encounter; Y93.9 Activity, unspecified; Y92.009 Unspecified place in unspecified non-institutional (private) residence as the place of occurrence of the external cause; Z79.4 Long term (current) use of insulin; Z79.01 Long term (current) use of anticoagulants; Z88.1 Allergy status to other antibiotic agents; Z88.5 Allergy status to narcotic agent; Z88.8 Allergy status to other drugs, medicaments and biological substances; I10 Essential (primary) hypertension; E11.9 Type 2 diabetes mellitus without complications; I48.91 Unspecified atrial fibrillation
CPT/HCPCS: 99284

== ENCOUNTER 2020-04-26 20:35 | Emergency (ER) | payer OTHER ==
--- OUTSIDE RECORDS SUMMARY | 2020-04-26 20:37 | XMS REPORT | Continuity of Care Document ---
:1935 Author Organization [facility] t Address [address] [place] [address] Dr. Zamorano [address] [place] [id number] Care Team Providers Name Role Phone Unavailable Unavailable Unavailable Problems This patient has no known problems. Allergies, Adverse Reactions, Alerts This patient has no known allergies or adverse reactions. Medications This patient has no known medications. Procedures This patient has no known procedures. Results This patient has no known results.
[2020-04-26] MEDS ORDERED: ONDANSETRON 4 MG (ODT) TAB ONE (21:39)
[2020-04-26 23:41] LABS: Absolute Lymphocytes (CBC) 0.2 K/uL (0.7-4.9); Basophils % 0.6 % (0-1.3); Hematocrit 43.8 % (36.0-45.0); Lymphocytes % 2.4 % (15.3-44.8); MPV 10.1 fL (7.6-11.3); RBC Red Blood Cell Count 5.14 M/uL (3.86-4.86)
[2020-04-26 23:48] LABS: Potassium 3.6 mmol/L (3.5-5.1)
[2020-04-27 00:34] LABS: Urine Bacteria <20 /HPF (<20); Urine Culture Reflex Order NOT NEEDED
[2020-04-27 00:35] LABS: Urine RBC NONE SEEN /HPF (NONE SEEN)
--- NOTE | 2020-04-27 00:46 | EDPHYS ---
Physician Documentation [facility] Name: Debra Sarkar Age: 84 yrs Sex: Female : 1935 Arrival Date: 04/26/2020 Time: 20:37 Bed 18 Private MD: ED Physician Khalif Tran HPI: 04/26 20:43 This 84 yrs old Female presents to ER via Unassigned with complaints of Fall cp Injury. 20:43 Details of fall: The patient fell from an upright position, while standing. Onset: The cp symptoms/episode began/occurred just prior to arrival. Associated injuries: The patient sustained injury to the head, contusion, hematoma. Historical: - Allergies: 22:35 Demerol; vc 22:35 Levaquin; vc 22:35 Lisinopril; vc 22:35 metformin; vc - Home Meds: 22:35 amlodipine 10 mg tab 1 tab once daily [Active]; aspercreme [Active]; calcitonin 1 spray vc each nostril daily [Active]; clonidine HCl 0.1 mg oral tab 1 tab 3 times per day [Active]; gabapentin 100 mg Oral cap 3 times per day [Active]; hydralazine 25 mg Oral tab 1 tab 3 times daily [Active]; isosorbide mononitrate 30 mg Oral Tb24 1 tab once daily [Active]; Levemir 100 unit/mL subcutaneous soln 35 35 UNITS [Active]; levothyroxine 112 mcg tab once daily [Active]; propafenone 225 mg Oral Tb24 1 cap every 12 hours [Active]; Restasis 0.05 % ophthalmic dpet 1 drop 2 times per day [Active]; victoza 18 mg/3ml [Active]; Xarelto 20 mg Oral tab 1 tab once daily [Active]; Senokot S Oral as needed [Active]; trazodone 50 mg Oral tab 1 tab nightly [Active]; apap/codeine 300-30 twice a day [Active]; cyclobenzaprine 5 mg Oral tab 1 tab daily [Active]; clotrimazole 1 % Topical crea daily [Active]; - PMHx: 22:35 Atrial Fib; Hypertension; Diabetes - IDDM; lymphedema; Hypothyroidism; neuropathy; vc - Immunization history:: Adult Immunizations up to date. - Social history:: Smoking status: Patient denies any tobacco usage or history of. ROS: 20:44 Constitutional: Negative for body aches, chills, fever, poor PO intake. cp 20:44 Neck: Positive for pain with movement, tenderness. 20:44 Cardiovascular: Negative for chest pain. 20:44 Respiratory: Negative for cough, shortness of breath, wheezing. 20:44 Abdomen/GI: Positive for nausea, Negative for vomiting. 20:44 Neuro: Positive for headache, Negative for altered mental status, loss of consciousness, weakness. 20:44 All other systems are negative. Exam: 20:50 Constitutional: The patient appears in no acute distress, alert, awake, cp non-diaphoretic, non-toxic, well developed, well nourished. 20:50 Head/face: Noted is hematoma, that is mild, of the left occipital area and right cp occipital area, swelling, that is mild, of the left occipital area and right occipital area, tenderness, that is mild, of the left occipital area and right occipital area. 20:50 Eyes: Periorbital structures: appear normal, Pupils: equal, round, and reactive to light and accomodation, Extraocular movements: intact throughout, Conjunctiva: normal, no exudate, no injection, Lids and lashes: appear normal, bilaterally. 20:50 ENT: External ear(s): are unremarkable, Nose: is normal, Mouth: Lips: moist, Oral mucosa: moist, Posterior pharynx: is normal, airway is patent. 20:50 Neck: C-spine: C-collar placed in ED, vertebral tenderness, that is mild, appreciated at C2 and C3, crepitus, is not appreciated. 20:50 Chest/axilla: Inspection: normal, Palpation: is normal, no crepitus, no tenderness. 20:50 Cardiovascular: Rate: normal. 20:50 Respiratory: the patient does not display signs of respiratory distress, Respirations: normal, no use of accessory muscles, no retractions, labored breathing, is not present, Breath sounds: are clear throughout, no decreased breath sounds. 20:50 Abdomen/GI: Inspection: abdomen appears normal, Palpation: abdomen is soft and non-tender, in all quadrants. 20:50 Back: pain, that is mild, chronic. 20:50 Musculoskeletal/extremity: Exam is negative for decreased range of motion, deformity, injury. 20:50 Neuro: Orientation: to person, place \T\ time. Mentation: is normal, Motor: moves all fours, strength is normal. Vital Signs: 22:44 BP 155 / 67; Pulse 82; Resp 16; Pulse Ox 99% on R/A; vc 23:30 BP 163 / 60; Pulse 79; Resp 17; Pulse Ox 99% on R/A; vc 04/27 00:30 BP 156 / 56; Pulse 77; Resp 15; Pulse Ox 98% on R/A; vc 02:00 BP 158 / 54; Pulse 78; Resp 16; Pulse Ox 98% on R/A; vc [place] Coma Score: 04/26 20:50 Eye Response: spontaneous(4). Verbal Response: oriented(5). Motor Response: obeys cp commands(6). Total: 15. 22:44 Eye Response: spontaneous(4). Verbal Response: oriented(5). Motor Response: obeys vc commands(6). Total: 15. Trauma Score (Adult): 22:44 Eye Response: spontaneous(1); Verbal Response: oriented(1); Motor Response: obeys vc commands(2); Systolic BP: > 89 mm Hg(4); Respiratory Rate: 10 to 29 per min(4); [place] Score: 15; Trauma Score: 12 MDM: 20:38 Patient medically screened. [facility] 04/27 00:45 Data reviewed: vital signs, nurses notes, lab test result(s), radiologic studies, CT cp scan, and as a result, I will discharge patient. 00:45 Counseling: I had a detailed discussion with the patient and/or guardian regarding: the cp historical points, exam findings, and any diagnostic results supporting the discharge/admit diagnosis, lab results, radiology results, the need for outpatient follow up, a family practitioner, to return to the emergency department if symptoms worsen or persist or if there are any questions or concerns that arise at home. Response to treatment: the patient's symptoms have markedly improved after treatment, and as a result, I will discharge patient. Special discussion: Based on the patient's history, exam and DX evaluation, there is no indication for emergent intervention or inpatient TX. It is understood by the patient/guardian that if the SXs persist or worsen they need to return immediately for re-evaluation. 04/26 23:05 Order name: BMP 04/26 23:05 Order name: CBC with Diff 04/26 23:05 Order name: Urine Microscopic Only 04/26 23:48 Order name: Basic Metabolic Panel; Complete Time: 00:26 EDMS 04/27 00:26 Interpretation: Normal except: CL 108; GLUC 121; GFR 69. cp 04/26 23:51 Order name: CBC with Automated Diff EDMS 04/27 00:26 Interpretation: Normal except: WBC 10.1; RBC 5.14; RDW 16.2; VIOLETTE% 91.3; LYM% 2.4; NEUT cp A 9.3; LYMA 0.2. 04/26 23:56 Order name: Urine Dipstick--Ancillary (enter results) ar5 04/26 20:39 Order name: Cervical Immobilization; Complete Time: 21:34 04/26 20:39 Order name: CT Head C Spine: fall and hit back of head 04/26 22:44 Order name: Bladder Scanner: pre and post void; Complete Time: 23:04 04/26 23:05 Order name: Urine Dipstick-Ancillary (obtain specimen); Complete Time: 23:48 04/27 00:35 Order name: Urine Microscopic Only; Complete Time: 00:44 EDMS 04/27 00:44 Interpretation: Reviewed. 04/27 01:15 Order name: Manual Differential EDMS Administered Medications: 04/26 21:34 Not Given (Patient Refused): Zofran (Ondansetron) 4 mg PO once vc Disposition: 04/27 01:00 Chart complete. cp 06:09 Co-signature as Attending Physician, Khalif Tran MD I agree with the assessment and [facility] plan of care. Disposition: 04/27/20 00:45 Discharged to Home. Impression: Contusion of unspecified part of head, Retention of urine. - Condition is Stable. - Discharge Instructions: Concussion, Adult, Head Injury, Adult. - Medication Reconciliation Form, Thank You Letter, Antibiotic Education, Prescription Opioid Use form. - Follow up: Private Physician; When: 1 - 2 days; Reason: Recheck today's complaints. - Problem is new. - Symptoms have improved. Signatures: Dispatcher [employer] EDNE Khalif Tran MD MD cha Page, Corey, PA PA Malaika Logan RN RN vc Corrections: (The following items were deleted from the chart) 01:12 04/26 22:44 Nash ordered. cp vc 04/27 02:33 00:45 04/27/2020 00:45 Discharged to Home. Impression: Contusion of unspecified part of vc head; Retention of urine. Condition is Stable. Forms are Medication Reconciliation Form, Thank You Letter, Antibiotic Education, Prescription Opioid Use. Follow up: Private Physician; When: 1 - 2 days; Reason: Recheck today's complaints. Problem is new. Symptoms have improved. cp
--- NOTE | 2020-04-27 00:46 | ER ---
Nurse's Notes [facility] Name: Debra Sarkar Age: 84 yrs Sex: Female : 1935 Arrival Date: 04/26/2020 Time: 20:37 Bed 18 Private MD: Diagnosis: Contusion of unspecified part of head;Retention of urine Presentation: 04/26 22:11 Chief complaint: Patient states: "I'm an old lady that falls a lot." EMS states: vc "Patient was leaning over to lift a toilet seat,she fell backwards and hit her head, patient does take Xarelto and had a hematoma when we picked her up.". Coronavirus screen: Proceed with normal triage. Patient denies a cough. Patient denies shortness of breath or difficulty breathing. Patient denies measured and/or subjective temperature greater than 100.4F prior to today's visit. Patient denies travel on a cruise ship or to a country the [facility] currently lists as an affected area. Patient denies contact with known and/or suspected case of COVID-19. Ebola Screen: No symptoms or risks identified at this time. Initial Sepsis Screen: Does the patient meet any 2 criteria? No. Patient's initial sepsis screen is negative. Does the patient have a suspected source of infection? No. Patient's initial sepsis screen is negative. Risk Assessment: Do you want to hurt yourself or someone else? Patient reports no desire to harm self or others. Onset of symptoms was April 26, 2020. 22:11 Method Of Arrival: EMS: [facility] vc 22:11 Acuity: LEX 2 vc Triage Assessment: 21:30 General: Appears in no apparent distress. Behavior is calm, cooperative, appropriate vc for age. Pain: Denies pain. Historical: - Allergies: 22:35 Demerol; vc 22:35 Levaquin; vc 22:35 Lisinopril; vc 22:35 metformin; vc - Home Meds: 22:35 amlodipine 10 mg tab 1 tab once daily [Active]; aspercreme [Active]; calcitonin 1 spray vc each nostril daily [Active]; clonidine HCl 0.1 mg oral tab 1 tab 3 times per day [Active]; gabapentin 100 mg Oral cap 3 times per day [Active]; hydralazine 25 mg Oral tab 1 tab 3 times daily [Active]; isosorbide mononitrate 30 mg Oral Tb24 1 tab once daily [Active]; Levemir 100 unit/mL subcutaneous soln 35 35 UNITS [Active]; levothyroxine 112 mcg tab once daily [Active]; propafenone 225 mg Oral Tb24 1 cap every 12 hours [Active]; Restasis 0.05 % ophthalmic dpet 1 drop 2 times per day [Active]; victoza 18 mg/3ml [Active]; Xarelto 20 mg Oral tab 1 tab once daily [Active]; Senokot S Oral as needed [Active]; trazodone 50 mg Oral tab 1 tab nightly [Active]; apap/codeine 300-30 twice a day [Active]; cyclobenzaprine 5 mg Oral tab 1 tab daily [Active]; clotrimazole 1 % Topical crea daily [Active]; - PMHx: 22:35 Atrial Fib; Hypertension; Diabetes - IDDM; lymphedema; Hypothyroidism; neuropathy; vc - Immunization history:: Adult Immunizations up to date. - Social history:: Smoking status: Patient denies any tobacco usage or history of. Screenin:30 Abuse screen: Denies threats or abuse. Nutritional screening: No deficits noted. vc Tuberculosis screening: No symptoms or risk factors identified. Fall Risk Fall in past 12 months (25 points). Secondary diagnosis (15 points) impaired mobility, IV access (20 points). Ambulatory Aid- None/Bed Rest/Nurse Assist (0 pts). Gait- Weak (10 pts.). Mental Status- Oriented to own ability (0 pts). Assessment: 21:30 General: Appears in no apparent distress. comfortable, Behavior is calm, cooperative, vc appropriate for age. Pain: Complains of pain in face Pain does not radiate. Neuro: Level of Consciousness is awake, alert, obeys commands, Oriented to person, place, time, situation, Appropriate for age. Cardiovascular: Capillary refill < 3 seconds Patient's skin is warm and dry. Respiratory: Airway is patent Respiratory effort is even, unlabored, Respiratory pattern is regular, symmetrical. GI: No signs and/or symptoms were reported involving the gastrointestinal system. : Reports inability to void, since breakfast time. EENT: No signs and/or symptoms were reported regarding the EENT system. Derm: Bruising that is brown, on right arm, left arm, right leg and left leg. Musculoskeletal: Circulation, motion, and sensation intact. Range of motion: intact in all extremities. 22:30 Reassessment: Patient appears in no apparent distress at this time. Patient and/or vc family updated on plan of care and expected duration. Pain level reassessed. Patient is alert, oriented x 3, equal unlabored respirations, skin warm/dry/pink. 23:00 Reassessment: REFUSES TO HAVE LARKIN PLACED, PATIENT STATES, "LAST TIME THIS HAPPENED vc THEY JUST STRAIGHT CATHED ME AND I WAS ABLE TO VOID WHEN I GOT HOME, I'LL BE ABLE TO DO THE SAME THIS TIME IF YOU JUST STRAIGHT CATH ME." PROVIDER NOTIFIED. 23:30 Reassessment: Patient appears in no apparent distress at this time. Patient and/or vc family updated on plan of care and expected duration. Pain level reassessed. Patient is alert, oriented x 3, equal unlabored respirations, skin warm/dry/pink. 04/27 00:30 Reassessment: Patient appears in no apparent distress at this time. Patient and/or vc family updated on plan of care and expected duration. Pain level reassessed. Patient is alert, oriented x 3, equal unlabored respirations, skin warm/dry/pink. Patient states feeling better. Patient states symptoms have improved. 01:12 Reassessment: Called Daughter Araseli Vera to advised patient was discharged and tl1 needed to be picked up. Daughter states she lives 45 minutes away but will be enroute to nut picker patient ETA 1 hour. 01:30 Reassessment: Patient appears in no apparent distress at this time. Patient and/or vc family updated on plan of care and expected duration. Pain level reassessed. Patient is alert, oriented x 3, equal unlabored respirations, skin warm/dry/pink. Patient states feeling better. Patient states symptoms have improved. 02:00 Reassessment: Patient appears in no apparent distress at this time. Patient and/or vc family updated on plan of care and expected duration. Pain level reassessed. Patient is alert, oriented x 3, equal unlabored respirations, skin warm/dry/pink. Vital Signs: 04/26 22:44 BP 155 / 67; Pulse 82; Resp 16; Pulse Ox 99% on R/A; vc 23:30 BP 163 / 60; Pulse 79; Resp 17; Pulse Ox 99% on R/A; vc 07 00:30 BP 156 / 56; Pulse 77; Resp 15; Pulse Ox 98% on R/A; vc 02:00 BP 158 / 54; Pulse 78; Resp 16; Pulse Ox 98% on R/A; vc [place] Coma Score: 04/26 20:50 Eye Response: spontaneous(4). Verbal Response: oriented(5). Motor Response: obeys cp commands(6). Total: 15. 22:44 Eye Response: spontaneous(4). Verbal Response: oriented(5). Motor Response: obeys vc commands(6). Total: 15. Trauma Score (Adult): 22:44 Eye Response: spontaneous(1); Verbal Response: oriented(1); Motor Response: obeys vc commands(2); Systolic BP: > 89 mm Hg(4); Respiratory Rate: 10 to 29 per min(4); [place] Score: 15; Trauma Score: 12 ED Course: 20:37 Patient arrived in ED. cf2 20:37 Khalif Hughes PA is PHCP. cp 20:38 Khalif Tran MD is Attending Physician. cp 21:28 Malaika العراقي RN is Primary Nurse. vc 21:30 Arm band placed on right wrist. vc 21:30 Patient has correct armband on for positive identification. Placed in gown. Call light vc in reach. Side rails up X2. Pulse ox on. NIBP on. 22:17 Triage completed. 04/27 02:30 No provider procedures requiring assistance completed. IV discontinued, intact, vc bleeding controlled, No redness/swelling at site. Pressure dressing applied. Administered Medications: 04/26 21:34 Not Given (Patient Refused): Zofran (Ondansetron) 4 mg PO once vc Outcome: 04/27 00:45 Discharge ordered by . cp 02:30 Discharged to residential. granddaughter came and picked up to transfer back to [facility]. 02:30 Condition: good 02:30 Discharge instructions given to patient, Instructed on discharge instructions, follow vc up and referral plans. Demonstrated understanding of instructions, follow-up care. 02:33 Patient left the ED. Signatures: Samra Grande RN RN tl1 Khalif Hughes PA PA Dave Washburn cf2 [place], Malaika, RN RN vc
[2020-04-27 01:14] LABS: Blood Morphology Comment NOT SEEN (NOT SEEN); Platelet Estimate ADEQ
[2020-04-27 03:00] VITALS: BP 156/56; O2SAT 98
--- NOTE | 2020-04-27 17:02 | RAD REPORT ---
EXAM DESCRIPTION: CT - Head C Spine Mpr Wo Con - 04/27/2020 6:15 am CLINICAL HISTORY: 84 years Female FALL, HIT BACK OF HEAD COMPARISON: 06/18/2019. TECHNIQUE: Contiguous axial CT images obtained through the brain without IV contrast. This exam was performed according to our department optimization program which includes automated exp osure control, adjustment of the mA and/or kv according to patient size and/or use of iterative recon struction technique. FINDINGS: The ventricles and sulci are prominent consistent with atrophic changes. Microvascular ischemic changes. No mass lesions. No acute hemorrhage. Atherosclerotic calcifications. No fluid or significant mucosal thickening in the visualized paranasal sinuses. No depressed calvarial fractures. IMPRESSION: Atrophy and microvascular ischemic changes. No acute intracranial abnormality is identified. EXAM DESCRIPTION: Head C Spine Mpr Wo Con CLINICAL HISTORY: 84 years Female FALL, HIT BACK OF HEAD COMPARISON: 06/18/2019. TECHNIQUE: Contiguous axial images obtained through the cervical spine without IV contrast. Coronal and sagittal reformatted images obtained. This exam was performed according to our department optimization program which includes automated exp osure control, adjustment of the mA and/or kv according to patient size and/or use of iterative recon struction technique. FINDINGS: There is mild curvature in the cervical spine convex left. There is minimal listhesis at several levels likely degenerative. No acute fracture is identified. There are similar mild degenerative changes. Atherosclerotic calcifications. There are surgical clips from resection of the right lobe of the thyroid gland. IMPRESSION: No acute cervical spinal fracture is identified. Electronically signed by: Emilio Gomez MD 04/26/2020 10:50 PM CDT [id number] to tempora ry technical issues with the PACS/Fluency reporting system, reports are being signed by the in house radiologist without review as a courtesy to ensure prompt reporting. The interpreting radiologist is fully responsible for the con tent of the report.
[2020-04-27 21:53] LABS: Urine Blood NEGATIVE (NEG); Urine Glucose NEGATIVE (NEG); Urine Protein NEGATIVE (NEG)
== END 2020-04-27 02:33 | disposition home or self-care (01) ==
LOC: ER 20:35
DX: S00.93XA Contusion of unspecified part of head, initial encounter (principal); R33.9 Retention of urine, unspecified; W18.39XA Other fall on same level, initial encounter; Y93.89 Activity, other specified; Y92.012 Bathroom of single-family (private) house as the place of occurrence of the external cause; Z88.1 Allergy status to other antibiotic agents; Z88.6 Allergy status to analgesic agent; Z88.8 Allergy status to other drugs, medicaments and biological substances; I48.91 Unspecified atrial fibrillation; I10 Essential (primary) hypertension; E11.9 Type 2 diabetes mellitus without complications; E03.9 Hypothyroidism, unspecified
CPT/HCPCS: 36415; 70450; 72125; 80048; 81003; 81015; 85025; 99283